=== PATIENT | female | born 1985 | race African-American/Black ===

== ENCOUNTER 2017-05-25 12:40 | Emergency (ER) | payer SELFPAY | END 2017-05-25 13:15 | disposition home or self-care (01) | LOC: ER 12:40 | DX: J20.9 Acute bronchitis, unspecified (principal); Z91.041 Radiographic dye allergy status; Z88.5 Allergy status to narcotic agent | CPT/HCPCS: 99283 ==

== ENCOUNTER 2019-07-15 11:20 | Inpatient (IN) | payer SELFPAY ==
[2019-07-15] VITALS (11 sets, daily range): BP systolic 97–139; BP diastolic 46–82
[~2019-07-15] VITALS: Ht 170.2 cm; Wt 79.6 kg
[~2019-07-15 11:20] MED LIST: ALBU2.5V8 INH; AZIT250T6 PO; BENZ100C PO; CIPR250T30 PO; DIAZ5TAB PO; DIVA500T2 PO; PRED-220 PO
[2019-07-15] MEDS ORDERED: LIDOCAINE 1% Multi-Dose 20 ML VIAL. ONE (11:49)
[2019-07-15] MEDS ORDERED: IV NORMAL SALINE 1000ML BAG 1,000 ML IV ONE (12:00)
[2019-07-15] MEDS ORDERED: CLINDAMYCIN 600MG PREMIX 50 ML IV ONE (12:00)
[2019-07-15] MEDS ORDERED: ONDANSETRON PF 4 MG/2 ML VIAL. IV ONE ×2 (12:00→12:15)
[2019-07-15] MEDS ORDERED: INSULIN REGULAR 100 UNIT/ML 3ML VIAL. IV ONE (12:00)
[2019-07-15 12:14] LABS: BILIRUBIN,URINE NEGATIVE (NEG); CLARITY,URINE CLEAR; COLOR,URINE YELLOW; NITRITE,URINE NEGATIVE (NEG); PROTEIN,URINE NEGATIVE (NEG-TRACE); UROBILINOGEN,URINE 0.2 mg/dL (0.2 mg/dL)
[2019-07-15] MEDS ORDERED: fentaNYL PF VIAL 100 MCG/2 ML VIAL IV ONE (12:15)
[2019-07-15 12:23] LABS: BASO # 0.1 x10^3/uL (0.0-0.2); BASO % 1 % (0-3); EOS % 0 % (0-3); HEMATOCRIT 40.9 % (36.0-47.0); HEMOGLOBIN 14.1 g/dL (12.0-15.5); LYMPH # 1.9 x10^3/uL (1.0-4.8); LYMPH % 20 % (24-48); MEAN CORPUSCULAR HEMOGLOBIN 31 pg (25-35); MEAN CORPUSCULAR HGB CONC 35 g/dL (31-37); MEAN CORPUSCULAR VOLUME 89 fL (79-100); MONO # 0.7 x10^3/uL (0.0-1.1); MONO % 7 % (0-9); NEUT % 73 % (31-73); PLATELET COUNT 214 x10^3/uL (140-400); RED BLOOD COUNT 4.58 x10^6/uL (3.50-5.40); RED CELL DISTRIBUTION WIDTH 12.5 % (11.5-14.5); WHITE BLOOD COUNT 9.6 x10^3/uL (4.0-11.0)
[2019-07-15 12:26] LABS: BASE EXCESS ABG -6 mmol/L (-3-3); HCO3 ABG 18 mmol/L (21-28); PCO2 ABG 31 mmHg (35-46); PO2 ABG 91 mmHg (85-108); SAT O2 ABG 96 % (92-99)
[2019-07-15 12:28] LABS: FIO2 ABG 21
[2019-07-15 12:30] LABS: BARBITURATES NEG (NEG); BENZODIAZEPINES NEG (NEG); CALCIUM 9.3 mg/dL (8.5-10.1); CANNABINOIDS NEG (NEG); COCAINE NEG (NEG); CREATININE 1.2 mg/dL (0.6-1.0); GFR 61.5; METHADONE NEG (NEG); OPIATES NEG (NEG); PHENCYCLIDINE NEG (NEG); POTASSIUM 4.1 mmol/L (3.5-5.1); SQUAMOUS EPITHELIAL CELL,UR FEW /LPF
[2019-07-15 12:32] LABS: ALBUMIN/GLOBULIN RATIO 1.3 (1.0-1.7); MAGNESIUM 1.7 mg/dL (1.8-2.4); TOTAL BILIRUBIN 0.7 mg/dL (0.2-1.0); TOTAL PROTEIN 7.2 g/dL (6.4-8.2)
[2019-07-15 12:33] LABS: BACTERIA,URINE 0 /HPF (0-FEW)
[2019-07-15 12:41] LABS: AMPHETAMINE/METHAMPHETAMINE POS (NEG)
--- NOTE | 2019-07-15 13:04 | PHYS DOC ---
Past Medical History Past Medical History: Bipolar, Bronchitis, Diabetes-Type II, Pneumonia, Other Additional Past Medical Histor: ENVIRONMENTAL ALLERGIES Past Surgical History: No Surgical History Smoking Status: Current Every Day Smoker Alcohol Use: None Drug Use: Methamphetamine General Adult EDM: Chief Complaint: WOUND CHECK HPI: HPI: Patient is a 34-year-old female that has been feeling terrible for the last several weeks. She describes polyuria and polydipsia. She states she feels like she needs to drink more than a gallon of water a day. She also states she urinates many times a day. Over the last couple of days she has been nauseated. She has not run any fever. She does state that her tongue feels like there is something on it and her taste is not been good recently. She also states that she has a half brother that is a type I diabetic that has had DKA in the past. She has never been told that she is a diabetic and never been prescribed medication to take for diabetes. Patient also states that over the last several days she has developed a very painful swollen red area under her right arm. She has had a little bit of drainage from it she is tried to squeeze it but is not been successful. [] Review of Systems: Review of Systems: Constitutional: Denies fever or chills. [] Eyes: Denies change in visual acuity. [] HENT: Denies nasal congestion or sore throat. [] Respiratory: Denies cough or shortness of breath. [] Cardiovascular: Denies chest pain or edema. [] GI: Reports nausea. [] : Denies dysuria. [] Musculoskeletal: Denies back pain or joint pain. [] Integument: Denies rash. [] Neurologic: Denies headache, focal weakness or sensory changes. [] Endocrine: Per HPI [] Lymphatic: Denies swollen glands. [] Psychiatric: Denies depression or anxiety. [] Heart Score: Risk Factors: Risk Factors: DM, Current or recent (<one month) smoker, HTN, HLP, family history of CAD, obesity. Risk Scores: Score 0 - 3: 2.5% MACE over next 6 weeks - Discharge Home Score 4 - 6: 20.3% MACE over next 6 weeks - Admit for Clinical Observation Score 7 - 10: 72.7% MACE over next 6 weeks - Early Invasive Strategies Current Medications: Current Medications Medications (Trade) Dose Ordered Sig/Esme Start Time Stop Time Status Last Admin Dose Admin Clindamycin Phosphate 50 ml @ 100 mls/hr 1X ONCE 07/15/19 12:00 07/15/19 12:29 DC 07/15/19 12:19 100 MLS/HR Fentanyl Citrate (Fentanyl 2ml Vial) 50 mcg 1X ONCE 07/15/19 12:15 07/15/19 12:16 DC 07/15/19 12:17 50 MCG Insulin Human Regular (HumuLIN R VIAL) 10 unit 1X ONCE 07/15/19 12:00 07/15/19 12:21 DC 07/15/19 12:26 10 UNIT Lidocaine HCl (Lidocaine 1% 20ml Vial) 20 ml STK-MED ONCE 07/15/19 11:49 07/15/19 11:49 DC Ondansetron HCl (Zofran) 4 mg 1X ONCE 07/15/19 12:15 07/15/19 12:16 DC Sodium Chloride 1,000 ml @ 1,000 mls/hr 1X ONCE 07/15/19 12:00 07/15/19 12:59 DC 07/15/19 12:00 1,000 MLS/HR Allergies: Allergies: Allergies Coded Allergies Type Severity Reaction Last Updated Verified iodine Allergy Intermediate Hives 05/25/17 Yes morphine Adverse Reaction Intermediate Nausea and Vomiting 05/25/17 Yes Physical Exam: PE: Constitutional: She is well-developed but appears acutely ill [] HENT: Normocephalic, atraumatic, bilateral external ears normal, oropharynx moist, no oral exudates, nose normal. [] Eyes: PERRLA, EOMI, conjunctiva normal, no discharge. [] Neck: Normal range of motion, no tenderness, supple, no stridor. [] Cardiovascular: Tachycardic no murmur [] Lungs & Thorax: Bilateral breath sounds clear to auscultation [] Abdomen: Bowel sounds normal, soft, no tenderness, no masses, no pulsatile masses. [] Skin: She has a golf ball size abscess in her right axilla [] Back: No tenderness, no CVA tenderness. [] Extremities: No tenderness, no cyanosis, no clubbing, ROM intact, no edema. [] Neurologic: Alert and oriented X 3, normal motor function, normal sensory function, no focal deficits noted. [] Psychologic: Anxious Current Patient Data: Labs: Laboratory Tests Test 07/15/19 12:00 07/15/19 12:08 07/15/19 12:25 White Blood Count 9.6 x10^3/uL (4.0-11.0) Red Blood Count 4.58 x10^6/uL (3.50-5.40) Hemoglobin 14.1 g/dL (12.0-15.5) Hematocrit 40.9 % (36.0-47.0) Mean Corpuscular Volume 89 fL (79-100) Mean Corpuscular Hemoglobin 31 pg (25-35) Mean Corpuscular Hemoglobin Concent 35 g/dL (31-37) Red Cell Distribution Width 12.5 % (11.5-14.5) Platelet Count 214 x10^3/uL (140-400) Neutrophils (%) (Auto) 73 % (31-73) Lymphocytes (%) (Auto) 20 % (24-48) L Monocytes (%) (Auto) 7 % (0-9) Eosinophils (%) (Auto) 0 % (0-3) Basophils (%) (Auto) 1 % (0-3) Neutrophils # (Auto) 7.0 x10^3/uL (1.8-7.7) Lymphocytes # (Auto) 1.9 x10^3/uL (1.0-4.8) Monocytes # (Auto) 0.7 x10^3/uL (0.0-1.1) Eosinophils # (Auto) 0.0 x10^3/uL (0.0-0.7) Basophils # (Auto) 0.1 x10^3/uL (0.0-0.2) Urine Collection Type Unknown Urine Color Yellow Urine Clarity Clear Urine pH 5.0 (<5.0-8.0) Urine Specific [place] >=1.030 (1.000-1.030) Urine Protein Negative mg/dL (NEG-TRACE) Urine Glucose (UA) >=1000 mg/dL (NEG) Urine Ketones (Stick) 40 mg/dL (NEG) Urine Blood Negative (NEG) Urine Nitrite Negative (NEG) Urine Bilirubin Negative (NEG) Urine Urobilinogen Dipstick 0.2 mg/dL (0.2 mg/dL) Urine Leukocyte Esterase Negative (NEG) Urine RBC 1-2 /HPF (0-2) Urine WBC 1-4 /HPF (0-4) Urine Squamous Epithelial Cells Few /LPF Urine Bacteria 0 /HPF (0-FEW) Sodium Level 123 mmol/L (136-145) L Potassium Level 4.1 mmol/L (3.5-5.1) Chloride Level 86 mmol/L (98-107) L Carbon Dioxide Level 22 mmol/L (21-32) Anion Gap 15 (6-14) H Blood Urea Nitrogen 12 mg/dL (7-20) Creatinine 1.2 mg/dL (0.6-1.0) H Estimated GFR (Cockcroft-Gault) 61.5 BUN/Creatinine Ratio 10 (6-20) Glucose Level 971 mg/dL (70-99) *H Calcium Level 9.3 mg/dL (8.5-10.1) Magnesium Level 1.7 mg/dL (1.8-2.4) L Total Bilirubin 0.7 mg/dL (0.2-1.0) Aspartate Amino Transferase (AST) 34 U/L (15-37) Alanine Aminotransferase (ALT) 76 U/L (14-59) H Alkaline Phosphatase 197 U/L (46-116) H Total Protein 7.2 g/dL (6.4-8.2) Albumin 4.0 g/dL (3.4-5.0) Albumin/Globulin Ratio 1.3 (1.0-1.7) Thyroid Stimulating Hormone (TSH) 3.212 uIU/mL (0.358-3.74) Urine Opiates Screen Neg (NEG) Urine Methadone Screen Neg (NEG) Urine Barbiturates Neg (NEG) Urine Phencyclidine Screen Neg (NEG) Urine Amphetamine/Methamphetamine Pos (NEG) Urine Benzodiazepines Screen Neg (NEG) Urine Cocaine Screen Neg (NEG) Urine Cannabinoids Screen Neg (NEG) Urine Ethyl Alcohol Neg (NEG) POC Urine HCG, Qualitative Hcg negative (Negative) O2 Saturation 96 % (92-99) Arterial Blood pH 7.39 (7.35-7.45) Arterial Blood pCO2 at Patient Temp 31 mmHg (35-46) L Arterial Blood pO2 at Patient Temp 91 mmHg (85-108) Arterial Blood HCO3 18 mmol/L (21-28) L Arterial Blood Base Excess -6 mmol/L (-3-3) L FiO2 21 Laboratory Tests 07/15/19 12:00 Laboratory Tests 07/15/19 12:00 Vital Signs: Vital Signs Date Time Temp Pulse Resp B/P (MAP) Pulse Ox O2 Delivery O2 Flow Rate FiO2 07/15/19 11:40 98.0 121 16 126/60 (82) 98 Room Air 98.0 EKG: EKG: [] Radiology/Procedures: Radiology/Procedures: [] Course & Med Decision Making: Course & Med Decision Making Pertinent Labs and Imaging studies reviewed. (See chart for details) [CRITICAL CARE: Time spent was 35 minutes. This includes medical management, evaluation, reevaluation, discussion with consultants and family. Critical Care does NOT include time spent on separately billed procedures. Procedure: Abscess incision and drainage The right axillary abscess was anesthetized with 8 cc of 1% lidocaine then using an 11 blade a 1.5 cm incision was made and we expressed a large amount of purulent material. The wound was probed to break up loculations. ED course: Evaluation reveals a 34-year-old female who is a new onset diabetic with an abscess in her right axilla. Her blood sugar is greater than 900. She was given IV fluids and started on an insulin drip. She was also given IV clindamycin for the infection in her right axillary area. Ordinarily I would not have given IV antibiotics however secondary to the fact that she is a new diabetic I felt it would be beneficial to the patient's recovery.] Sohail Disclaimer: Sohail Disclaimer: This electronic medical record was generated, in whole or in part, using a voice recognition dictation system. Departure Departure Impression: Primary Impression: Hyperglycemia due to type 2 diabetes mellitus Qualified Codes: E11.65 - Type 2 diabetes mellitus with hyperglycemia Additional Impression: Abscess of right axilla Disposition: ADMITTED INPATIENT Admitting Physician: JOSHUA Condition: GUARDED Referrals: NO PCP (PCP) VIEVK RAHMAN DO July 15, 2019 13:04
--- NOTE | 2019-07-15 13:07 | PDOC1 ---
History and Physical Date of Admission Date of Admission DATE: 07/15/19 TIME: 13:06 Identification/Chief Complaint Chief Complaint SEEN IN ER WITH GLUCOSE > 900 34-year-old female that has been feeling terrible describes polyuria and polydipsia. She states she feels like she needs to drink more than a gallon of water a day. C/O POLYURIA . Over the last couple of days she has been nauseated. She has not run any fever. she has a half brother that is a type I diabetic that has had DKA in the past. She has never been told that she is a diabetic and never been prescribed medication to take for diabetes. Patient also states that over the last several days she has developed a very painful swollen red area under her right arm. She has had a little bit of drainage from it she is tried to squeeze it but is not been successful. THIS WAS LANCED BY THE ER DR [] Past Medical History Past Medical History Past Medical History Past Medical History: Bipolar, Bronchitis, Diabetes-Type II, Pneumonia, Other Additional Past Medical Histor: ENVIRONMENTAL ALLERGIES Past Surgical History: No Surgical History Smoking Status: Current Every Day Smoker Alcohol Use: None Drug Use: Methamphetamine fhx DIABETES Psych: Anxiety, Addictions Musculoskeletal: low back pain Past Surgical History Past Surgical History: No pertinent history Family History Family History: Depression, Diabetes Family History: Parent Social History Smoke: <1 pack per day ALCOHOL: occassional Drugs: Crystal meth Current Medications Current Medications Current Medications Lidocaine HCl (Lidocaine 1% 20ml Vial) 20 ml STK-MED ONCE .ROUTE ; Start 07/15/19 at 11:49; Stop 07/15/19 at 11:49; Status DC Sodium Chloride 1,000 ml @ 1,000 mls/hr 1X ONCE IV Last administered on 07/15/19at 12:00; Start 07/15/19 at 12:00; Stop 07/15/19 at 12:59; Status DC Insulin Human Regular (HumuLIN R VIAL) 10 unit 1X ONCE IV Last administered on 07/15/19at 12:26; Start 07/15/19 at 12:00; Stop 07/15/19 at 12:21; Status DC Ondansetron HCl (Zofran) 4 mg 1X ONCE IV Last administered on 07/15/19at 12:17; Start 07/15/19 at 12:00; Stop 07/15/19 at 12:01; Status DC Clindamycin Phosphate 50 ml @ 100 mls/hr 1X ONCE IV Last administered on 07/15/19at 12:19; Start 07/15/19 at 12:00; Stop 07/15/19 at 12:29; Status DC Fentanyl Citrate (Fentanyl 2ml Vial) 50 mcg 1X ONCE IV Last administered on 07/15/19at 12:17; Start 07/15/19 at 12:15; Stop 07/15/19 at 12:16; Status DC Ondansetron HCl (Zofran) 4 mg 1X ONCE IV ; Start 07/15/19 at 12:15; Stop 07/15/19 at 12:16; Status DC Active Scripts Active Cipro (Ciprofloxacin Hcl) 250 Mg Tablet 250 Mg PO BID 4 Days Reported Valium (Diazepam) 5 Mg Tablet 5 Mg PO TID PRN Depakote (Divalproex Sodium) 500 Mg Tablet.dr 500 Mg PO DAILY Allergies Allergies: Coded Allergies: iodine (Verified Allergy, Intermediate, Hives, 05/25/17) morphine (Verified Adverse Reaction, Intermediate, Nausea and Vomiting, 05/25/17) ROS Review of System Constitutional: Denies fever or chills. [] Eyes: Denies change in visual acuity. [] HENT: Denies nasal congestion or sore throat. [] Respiratory: Denies cough or shortness of breath. [] Cardiovascular: Denies chest pain or edema. [] GI: Reports nausea. [] : Denies dysuria //pos polyuria . [] Musculoskeletal: Denies back pain or joint pain. [] Integument: Denies rash. [] Neurologic: Denies headache, focal weakness or sensory changes. [] Endocrine: Per HPI [] Lymphatic: RIGHT AXILLA abscess . [] Psychiatric: Denies depression or anxiety. 14 pt ros otherwise neg [] Genitourinary: YES Frequency Physical Exam Physical Exam Physical Exam: PE: Constitutional: She is well-developed but appears acutely ill [] HENT: Normocephalic, atraumatic, bilateral external ears normal, oropharynx moist, no oral exudates, nose normal. [] Eyes: PERRLA, EOMI, conjunctiva normal, no discharge. [] Neck: Normal range of motion, no tenderness, supple, no stridor. [] Cardiovascular: Tachycardic no murmur [] Lungs & Thorax: Bilateral breath sounds clear to auscultation [] Abdomen: Bowel sounds normal, soft, no tenderness, no masses, no pulsatile masses. [] Skin: She has a golf ball size abscess in her right axilla [] Back: No tenderness, no CVA tenderness. [] Extremities: No tenderness, no cyanosis, no clubbing, ROM intact, no edema. [] Neurologic: Alert and oriented X 3, normal motor function, normal sensory fun ction, no focal deficits noted. [] Psychologic: Anxious General: Alert, Oriented X3, Cooperative, mild distress HEENT: Atraumatic, PERRLA, EOMI Lungs: Clear to auscultation, Normal air movement Heart: RRR Breasts: Not examined Abdomen: Normal bowel sounds, Soft Rectal Exam: not examined PELVIC: Examination not indicated Extremities: No cyanosis, No edema Neuro: Normal speech, Cranial nerves 3-12 NL Psych/Mental Status: Mental status NL, Mood NL Vitals Vitals Vital Signs Date Time Temp Pulse Resp B/P (MAP) Pulse Ox O2 Delivery O2 Flow Rate FiO2 07/15/19 11:40 98.0 121 16 126/60 (82) 98 Room Air 98.0 Labs Labs Laboratory Tests Test 07/15/19 12:00 07/15/19 12:08 07/15/19 12:25 White Blood Count 9.6 x10^3/uL (4.0-11.0) Red Blood Count 4.58 x10^6/uL (3.50-5.40) Hemoglobin 14.1 g/dL (12.0-15.5) Hematocrit 40.9 % (36.0-47.0) Mean Corpuscular Volume 89 fL (79-100) Mean Corpuscular Hemoglobin 31 pg (25-35) Mean Corpuscular Hemoglobin Concent 35 g/dL (31-37) Red Cell Distribution Width 12.5 % (11.5-14.5) Platelet Count 214 x10^3/uL (140-400) Neutrophils (%) (Auto) 73 % (31-73) Lymphocytes (%) (Auto) 20 % (24-48) Monocytes (%) (Auto) 7 % (0-9) Eosinophils (%) (Auto) 0 % (0-3) Basophils (%) (Auto) 1 % (0-3) Neutrophils # (Auto) 7.0 x10^3/uL (1.8-7.7) Lymphocytes # (Auto) 1.9 x10^3/uL (1.0-4.8) Monocytes # (Auto) 0.7 x10^3/uL (0.0-1.1) Eosinophils # (Auto) 0.0 x10^3/uL (0.0-0.7) Basophils # (Auto) 0.1 x10^3/uL (0.0-0.2) Urine Collection Type Unknown Urine Color Yellow Urine Clarity Clear Urine pH 5.0 (<5.0-8.0) Urine Specific [place] >=1.030 (1.000-1.030) Urine Protein Negative mg/dL (NEG-TRACE) Urine Glucose (UA) >=1000 mg/dL (NEG) Urine Ketones (Stick) 40 mg/dL (NEG) Urine Blood Negative (NEG) Urine Nitrite Negative (NEG) Urine Bilirubin Negative (NEG) Urine Urobilinogen Dipstick 0.2 mg/dL (0.2 mg/dL) Urine Leukocyte Esterase Negative (NEG) Urine RBC 1-2 /HPF (0-2) Urine WBC 1-4 /HPF (0-4) Urine Squamous Epithelial Cells Few /LPF Urine Bacteria 0 /HPF (0-FEW) Sodium Level 123 mmol/L (136-145) Potassium Level 4.1 mmol/L (3.5-5.1) Chloride Level 86 mmol/L (98-107) Carbon Dioxide Level 22 mmol/L (21-32) Anion Gap 15 (6-14) Blood Urea Nitrogen 12 mg/dL (7-20) Creatinine 1.2 mg/dL (0.6-1.0) Estimated GFR (Cockcroft-Gault) 61.5 BUN/Creatinine Ratio 10 (6-20) Glucose Level 971 mg/dL (70-99) Calcium Level 9.3 mg/dL (8.5-10.1) Magnesium Level 1.7 mg/dL (1.8-2.4) Total Bilirubin 0.7 mg/dL (0.2-1.0) Aspartate Amino Transf (AST/SGOT) 34 U/L (15-37) Alanine Aminotransferase (ALT/SGPT) 76 U/L (14-59) Alkaline Phosphatase 197 U/L (46-116) Total Protein 7.2 g/dL (6.4-8.2) Albumin 4.0 g/dL (3.4-5.0) Albumin/Globulin Ratio 1.3 (1.0-1.7) Thyroid Stimulating Hormone (TSH) 3.212 uIU/mL (0.358-3.74) Urine Opiates Screen Neg (NEG) Urine Methadone Screen Neg (NEG) Urine Barbiturates Neg (NEG) Urine Phencyclidine Screen Neg (NEG) Urine Amphetamine/Methamphetamine Pos (NEG) Urine Benzodiazepines Screen Neg (NEG) Urine Cocaine Screen Neg (NEG) Urine Cannabinoids Screen Neg (NEG) Urine Ethyl Alcohol Neg (NEG) Bedside Urine HCG, Qualitative Hcg negative (Negative) O2 Saturation 96 % (92-99) Arterial Blood pH 7.39 (7.35-7.45) Arterial Blood pCO2 at Patient Temp 31 mmHg (35-46) Arterial Blood pO2 at Patient Temp 91 mmHg (85-108) Arterial Blood HCO3 18 mmol/L (21-28) Arterial Blood Base Excess -6 mmol/L (-3-3) FiO2 21 Laboratory Tests Test 07/15/19 12:00 07/15/19 12:08 07/15/19 12:25 White Blood Count 9.6 x10^3/uL (4.0-11.0) Red Blood Count 4.58 x10^6/uL (3.50-5.40) Hemoglobin 14.1 g/dL (12.0-15.5) Hematocrit 40.9 % (36.0-47.0) Mean Corpuscular Volume 89 fL (79-100) Mean Corpuscular Hemoglobin 31 pg (25-35) Mean Corpuscular Hemoglobin Concent 35 g/dL (31-37) Red Cell Distribution Width 12.5 % (11.5-14.5) Platelet Count 214 x10^3/uL (140-400) Neutrophils (%) (Auto) 73 % (31-73) Lymphocytes (%) (Auto) 20 % (24-48) Monocytes (%) (Auto) 7 % (0-9) Eosinophils (%) (Auto) 0 % (0-3) Basophils (%) (Auto) 1 % (0-3) Neutrophils # (Auto) 7.0 x10^3/uL (1.8-7.7) Lymphocytes # (Auto) 1.9 x10^3/uL (1.0-4.8) Monocytes # (Auto) 0.7 x10^3/uL (0.0-1.1) Eosinophils # (Auto) 0.0 x10^3/uL (0.0-0.7) Basophils # (Auto) 0.1 x10^3/uL (0.0-0.2) Urine Collection Type Unknown Urine Color Yellow Urine Clarity Clear Urine pH 5.0 (<5.0-8.0) Urine Specific [place] >=1.030 (1.000-1.030) Urine Protein Negative mg/dL (NEG-TRACE) Urine Glucose (UA) >=1000 mg/dL (NEG) Urine Ketones (Stick) 40 mg/dL (NEG) Urine Blood Negative (NEG) Urine Nitrite Negative (NEG) Urine Bilirubin Negative (NEG) Urine Urobilinogen Dipstick 0.2 mg/dL (0.2 mg/dL) Urine Leukocyte Esterase Negative (NEG) Urine RBC 1-2 /HPF (0-2) Urine WBC 1-4 /HPF (0-4) Urine Squamous Epithelial Cells Few /LPF Urine Bacteria 0 /HPF (0-FEW) Sodium Level 123 mmol/L (136-145) Potassium Level 4.1 mmol/L (3.5-5.1) Chloride Level 86 mmol/L (98-107) Carbon Dioxide Level 22 mmol/L (21-32) Anion Gap 15 (6-14) Blood Urea Nitrogen 12 mg/dL (7-20) Creatinine 1.2 mg/dL (0.6-1.0) Estimated GFR (Cockcroft-Gault) 61.5 BUN/Creatinine Ratio 10 (6-20) Glucose Level 971 mg/dL (70-99) Calcium Level 9.3 mg/dL (8.5-10.1) Magnesium Level 1.7 mg/dL (1.8-2.4) Total Bilirubin 0.7 mg/dL (0.2-1.0) Aspartate Amino Transf (AST/SGOT) 34 U/L (15-37) Alanine Aminotransferase (ALT/SGPT) 76 U/L (14-59) Alkaline Phosphatase 197 U/L (46-116) Total Protein 7.2 g/dL (6.4-8.2) Albumin 4.0 g/dL (3.4-5.0) Albumin/Globulin Ratio 1.3 (1.0-1.7) Thyroid Stimulating Hormone (TSH) 3.212 uIU/mL (0.358-3.74) Urine Opiates Screen Neg (NEG) Urine Methadone Screen Neg (NEG) Urine Barbiturates Neg (NEG) Urine Phencyclidine Screen Neg (NEG) Urine Amphetamine/Methamphetamine Pos (NEG) Urine Benzodiazepines Screen Neg (NEG) Urine Cocaine Screen Neg (NEG) Urine Cannabinoids Screen Neg (NEG) Urine Ethyl Alcohol Neg (NEG) Bedside Urine HCG, Qualitative Hcg negative (Negative) O2 Saturation 96 % (92-99) Arterial Blood pH 7.39 (7.35-7.45) Arterial Blood pCO2 at Patient Temp 31 mmHg (35-46) Arterial Blood pO2 at Patient Temp 91 mmHg (85-108) Arterial Blood HCO3 18 mmol/L (21-28) Arterial Blood Base Excess -6 mmol/L (-3-3) FiO2 21 VTE Prophylaxis Ordered VTE Prophylaxis Devices: Yes VTE Pharmacological Prophylaxi: Yes Assessment/Plan Assessment/Plan Impression: Hyperglycemia due to type 2 diabetes mellitus uncontrolled diabetes DKA Abscess of right axilla METH ABUSE POOR prognosis due to substance abuse ADMITTED ICU BED EMPERIC IV ANTIBIOTICS Diabetic teaching dvt prophylaxis a1c insulin drip 37 min cc time WANDA WEBSTER MD July 15, 2019 13:07
[2019-07-15] MEDS ORDERED: ONDANSETRON PF 4 MG/2 ML VIAL. IV PRN ×2 (13:15→14:00)
[2019-07-15] MEDS ORDERED: INSULIN,REGULAR 100 UNIT DRIP 100 ML IV ONE (13:15)
[2019-07-15] MEDS ORDERED: ACETAMINOPHEN 325 MG TABLET. PO PRN (13:15)
[2019-07-15] MEDS ORDERED: IV NORMAL SALINE 1000ML BAG 1,000 ML IV SCH ×3 (13:51→15:48)
[2019-07-15] MEDS ORDERED: MAGNESIUM SULFATE 4GM 100 ML IV PRN (13:57)
[2019-07-15] MEDS ORDERED: ACETAMINOPHEN 650 MG SUPP.RECT. PR PRN (14:00)
[2019-07-15] MEDS ORDERED: cloNIDine HCL 0.1 MG TABLET PO PRN (14:00)
[2019-07-15] MEDS ORDERED: diazePAM 5 MG TABLET PO PRN (14:00)
[2019-07-15] MEDS ORDERED: SODIUM PHOSPHATE 10 MMOL in IV NORMAL SALINE 100ML 250 ML IV PRN (14:00)
[2019-07-15] MEDS ORDERED: guaiFENesin ORAL 200 MG/10 ML LIQUID. PO PRN (14:00)
[2019-07-15] MEDS ORDERED: LORazepam 0.5 MG TABLET PO PRN (14:00)
[2019-07-15] MEDS ORDERED: POTASSIUM CHLORIDE 10MEQ 100 ML IV PRN ×5 (14:00→15:45)
[2019-07-15] MEDS ORDERED: INSULIN REGULAR VIAL 100 UNIT in IV NORMAL SALINE 100ML 100 ML IV PRN (14:00)
[2019-07-15] MEDS ORDERED: 0.9 % SODIUM CHLORIDE 10 ML DISP.SYRIN. IV PRN (14:00)
[2019-07-15] MEDS ORDERED: ALBUTEROL SULFATE 2.5 MG/3 ML NEBU. NEB PRN (14:00)
[2019-07-15] MEDS ORDERED: SODIUM PHOSPHATE 40 MMOL in IV NORMAL SALINE 500ML BAG 500 ML IV PRN (14:00)
[2019-07-15] MEDS ORDERED: SODIUM PHOSPHATE 20 MMOL in IV NORMAL SALINE 250ML 250 ML IV PRN (14:00)
[2019-07-15] MEDS ORDERED: DOCUSATE SODIUM 100 MG CAPSULE. PO PRN (14:00)
[2019-07-15] MEDS ORDERED: SODIUM PHOSPHATES 19/7GM 133 ML ENEMA. PR PRN (14:00)
--- NOTE | 2019-07-15 15:10 | RAD ---
AP chest x-ray HISTORY: Tachycardia. COMPARISON: Chest x-ray February 11, 2010. FINDINGS: Heart size normal. The mediastinal silhouette is normal. No pneumothorax, pulmonary opacities or pleural effusions. Bones are unremarkable. IMPRESSION: No acute process. Electronically signed by: Marquise Kamara MD (07/15/2019 3:07 PM) [facility]
[2019-07-15] MEDS: IV NORMAL SALINE 1000ML BAG 1,000 ML IV SCH ×2 (15:19→23:06)
[2019-07-15] MEDS: cefTRIAXone IV Push 2 GM VIAL. IVP SCH (15:20)
[2019-07-15] MEDS: ENOXAPARIN 40 MG/0.4 ML SYRINGE. SQ SCH (15:26)
[2019-07-15] MEDS ORDERED: IV 1/2 NORMAL SALINE 1,000 ML IV SCH (15:48)
[2019-07-15] MEDS ORDERED: IV DEXTROSE 5 %-0.45 % NACL 1,000 ML IV SCH (15:48)
--- NOTE | 2019-07-15 15:54 | EKG ---
[facility] [address] [place] [address] Test Date: 2019-07-15 Test Time: 15:43:52 Pat Name: MATHIEU COLE Department: Room: 269 1 Gender: F [employer]: : 1985 Requested By: WANDA WEBSTER Order Number: [id number] Reading MD: Hector Ch Measurements Intervals [place] Rate: 98 P: 54 [place]: 106 QRS: 41 QRSD: 92 T: 258 QT: 352 QTc: 451 Interpretive Statements SINUS RHYTHM ST & T ABNORMALITY, CONSIDER INFERIOR ISCHEMIA OR LEFT VENTRICULAR STRAIN T ABNORMALITY IN ANTERIOR LEADS ABNORMAL ECG RI6.02 No previous ECG available for comparison Electronically Signed On 07-17-2019 15:46:43 CDT by Hector Ch
[2019-07-15 17:19] LABS: CALCIUM 8.3 mg/dL (8.5-10.1); CREATININE 0.9 mg/dL (0.6-1.0); GFR 85.7; PHOSPHORUS 2.2 mg/dL (2.6-4.7)
[2019-07-15 17:22] LABS: POTASSIUM 2.8 mmol/L (3.5-5.1)
[2019-07-15] MEDS: POTASSIUM CHLORIDE 10MEQ 100 ML IV PRN ×2 (17:44→18:55)
[2019-07-15] MEDS ORDERED: DEXTROSE 50% 25 GM / 50ML DISP.SYRIN. IV PRN (18:00)
[2019-07-15] MEDS: POTASSIUM CHLORIDE 10MEQ 100 ML IV SCH ×5 (20:08→23:35)
[2019-07-16] VITALS (16 sets, daily range): BP systolic 87–129; BP diastolic 43–67
[2019-07-16] MEDS: POTASSIUM CHLORIDE 10MEQ 100 ML IV SCH (01:45)
--- NOTE | 2019-07-16 01:51 | NUR ---
Pts anion gap closed on previous shift. Previous nurse able to dc DKA protocol per MD order. Pt currently receiving bag 6/6 of potassium replacement. Follow up labs scheduled to be drawn after infusion. Pt has been resting with her eyes closed throughout most of the shift. VSS, pt a&ox4. Pt is afebrile. No concerns to report at this time. Will continue to monitor.
[2019-07-16 02:07] LABS: HEMOGLOBIN A1C 11.8 % (4.8-5.6)
[2019-07-16] MEDS: IV NORMAL SALINE 1000ML BAG 1,000 ML IV SCH ×2 (02:28→06:08)
[2019-07-16 05:30] LABS: BASO # 0.1 x10^3/uL (0.0-0.2); BASO % 1 % (0-3); EOS # 0.1 x10^3/uL (0.0-0.7); EOS % 2 % (0-3); HEMOGLOBIN 12.5 g/dL (12.0-15.5); LYMPH # 2.5 x10^3/uL (1.0-4.8); LYMPH % 37 % (24-48); MEAN CORPUSCULAR HEMOGLOBIN 31 pg (25-35); MEAN CORPUSCULAR HGB CONC 36 g/dL (31-37); MEAN CORPUSCULAR VOLUME 86 fL (79-100); MONO # 0.5 x10^3/uL (0.0-1.1); MONO % 7 % (0-9); NEUT # 3.7 x10^3/uL (1.8-7.7); NEUT % 54 % (31-73); PLATELET COUNT 194 x10^3/uL (140-400); RED BLOOD COUNT 4.07 x10^6/uL (3.50-5.40); RED CELL DISTRIBUTION WIDTH 12.6 % (11.5-14.5); WHITE BLOOD COUNT 6.9 x10^3/uL (4.0-11.0)
[2019-07-16 05:55] LABS: ALBUMIN 2.9 g/dL (3.4-5.0); CALCIUM 7.7 mg/dL (8.5-10.1); CREATININE 0.6 mg/dL (0.6-1.0); GFR 136.9; POTASSIUM 3.8 mmol/L (3.5-5.1); TOTAL BILIRUBIN 0.5 mg/dL (0.2-1.0); TOTAL PROTEIN 5.7 g/dL (6.4-8.2)
[2019-07-16] MEDS: DIVALPROEX DELAYED RELEASE 500 MG TABLET.DR. PO SCH (08:29)
[2019-07-16] MEDS: INSULIN LISPRO 300 UNITS/3 ML VIAL. SQ SCH ×5 (08:30→17:16)
--- NOTE | 2019-07-16 09:59 | PDOC2 ---
IM Consult Date of Admission DATE: 07/16/19 TIME: 09:46 Chief Complaint Chief Complaint This year 34 yo female has been admitted with a chief complaint of not feeling well for the last couple of weeks. She had complains of painful swollen red area under the right axilla for couple of days with some drainage when she tried to squeeze. It got worse. She felt it was like a " spider bite ". She was found to have hyperglycemia in the ER , hyponatremia , hypokalemia .She describes polyuria polydipsia .she describes polyuria and polydipsia. She underwent incision and drainage in the ER. Cultures are negative so far. Urine beta-hCG was negative. UDS positive for methamphetamine .patient was started on ceftriaxone .She had some nausea .she denies any fever, chills, vomiting, headache, sore throat, shortness of breath, cough, diarrhea, abdominal pain, symptoms, abnormal vaginal discharge. . She did have urinary frequency but no hematuria or dysuria . She has not run any fever. She she has not had any history of diabetes. She denies any history of skin and soft tissue infection. She denies any history of trauma. ID consult is requested for antibiotic management Past Medical History PMH Past Medical History: Bipolar, Bronchitis, Diabetes-Type II, Pneumonia, Other Additional Past Medical Histor: ENVIRONMENTAL ALLERGIES Past Surgical History: No Surgical History Smoking Status: Current Every Day Smoker Alcohol Use: None Drug Use: Methamphetamine Psych: Anxiety, Addictions Musculoskeletal: low back pain Past Surgical History Past Surgical History: No pertinent history Past Family History Family History: Depression, Diabetes Review of Symptoms Review of Symptoms Review of systems negative except for above in HPI Medications Current Medications Acetaminophen (Tylenol Supp) 650 mg PRN Q4HRS PRN [place] TEMP OVER 100.4F OR MILD PAIN; Start 07/15/19 at 14:00 Acetaminophen (Tylenol) 650 mg PRN Q4HRS PRN PO FEVER > 100.3'F Last administered on 07/15/19at 20:15; Start 07/15/19 at 13:15; Stop 07/16/19 at 13:14 Albuterol Sulfate (Ventolin Neb Soln) 2.5 mg PRN Q4HRS PRN NEB SHORTNESS OF BREATH; Start 07/15/19 at 14:00 Ceftriaxone Sodium (Rocephin) 2 gm Q24H IVP Last administered on 07/15/19at 15:20; Start 07/15/19 at 15:00 Clindamycin Phosphate 50 ml @ 100 mls/hr 1X ONCE IV Last administered on 07/15/19at 12:19; Start 07/15/19 at 12:00; Stop 07/15/19 at 12:29; Status DC Clonidine HCl (Catapres) 0.1 mg PRN Q6HRS PRN PO SBP>160 OR DBP>90; Start 07/15/19 at 14:00 Dextrose (Dextrose 50%-Water Syringe) 12.5 gm PRN Q15MIN PRN IV SEE COMMENTS; Start 07/15/19 at 18:00 Dextrose/Sodium Chloride 1,000 ml @ 250 mls/hr Q4H IV ; Start 07/15/19 at 15:48; Stop 07/15/19 at 22:37; Status DC Diazepam (Valium) 5 mg TID PRN PO ANXIETY; Start 07/15/19 at 14:00 Divalproex Sodium (Depakote) 500 mg DAILY PO Last administered on 07/16/19at 08:29; Start 07/16/19 at 09:00 Docusate Sodium (Colace) 100 mg PRN BID PRN PO HARD STOOLS; Start 07/15/19 at 14:00 Enoxaparin Sodium (Lovenox 40mg Syringe) 40 mg Q24H SQ Last administered on 07/15/19at 15:26; Start 07/15/19 at 15:00 Fentanyl Citrate (Fentanyl 2ml Vial) 50 mcg 1X ONCE IV Last administered on 07/15/19at 12:17; Start 07/15/19 at 12:15; Stop 07/15/19 at 12:16; Status DC Guaifenesin (Robitussin) 200 mg PRN Q4HRS PRN PO COUGH; Start 07/15/19 at 14:00 Insulin Human Lispro (HumaLOG) 0-7 UNITS TIDWMEALS SQ Last administered on 07/16/19at 08:30; Start 07/16/19 at 08:00 Insulin Human Regular 100 ml @ 0 mls/hr 1X ONCE IV Last administered on 07/15/19at 13:23; Start 07/15/19 at 13:15; Stop 07/15/19 at 13:16; Status DC Insulin Human Regular (HumuLIN R VIAL) 10 unit 1X ONCE IV Last administered on 07/15/19at 12:26; Start 07/15/19 at 12:00; Stop 07/15/19 at 12:21; Status DC Insulin Human Regular 100 unit/ Sodium Chloride 101 ml @ 0 mls/hr CONT PRN PRN IV PER PROTOCOL; Start 07/15/19 at 14:00 Lidocaine HCl (Lidocaine 1% 20ml Vial) 20 ml STK-MED ONCE .ROUTE ; Start 07/15/19 at 11:49; Stop 07/15/19 at 11:49; Status DC Lorazepam (Ativan) 0.5 mg PRN Q4HRS PRN PO ANXIETY / AGITATION; Start 07/15/19 at 14:00 Magnesium Sulfate 100 ml @ 25 mls/hr PRN DAILY PRN IV MAG < 1.8; Start 07/15/19 at 13:57; Stop 07/19/19 at 09:01 Ondansetron HCl (Zofran) 4 mg 1X ONCE IV Last administered on 07/15/19at 12:17; Start 07/15/19 at 12:00; Stop 07/15/19 at 12:01; Status DC Ondansetron HCl (Zofran) 4 mg 1X ONCE IV ; Start 07/15/19 at 12:15; Stop 07/15/19 at 12:16; Status DC Ondansetron HCl (Zofran) 4 mg PRN Q4HRS PRN IV NAUSEA/VOMITING; Start 07/15/19 at 14:00 Ondansetron HCl (Zofran) 4 mg PRN Q8HRS PRN IV NAUSEA/VOMITING; Start 07/15/19 at 13:15; Stop 07/15/19 at 15:55; Status DC Potassium Chloride/Water 100 ml @ 100 mls/hr PRN Q1HR PRN IV SEE COMMENTS Last administered on 07/15/19at 18:55; Start 07/15/19 at 14:00 Potassium Chloride/Water 100 ml @ 100 mls/hr PRN Q1HR PRN IV SEE COMMENTS; Start 07/15/19 at 14:00 Potassium Chloride/Water 100 ml @ 100 mls/hr PRN Q1HR PRN IV SEE COMMENTS; Start 07/15/19 at 14:00 Potassium Chloride/Water 100 ml @ 100 mls/hr PRN Q1HR PRN IV SEE COMMENTS; Start 07/15/19 at 15:45; Status UNV Potassium Chloride/Water 100 ml @ 100 mls/hr PRN Q1HR PRN IV SEE COMMENTS; Start 07/15/19 at 15:45; Status UNV Potassium Chloride/Water 100 ml @ 100 mls/hr PRN Q1HR PRN IV SEE COMMENTS; Start 07/15/19 at 15:45; Status UNV Potassium Chloride/Water 100 ml @ 100 mls/hr Q1H IV Last administered on 07/16/19at 01:45; Start 07/15/19 at 17:45; Stop 07/15/19 at 23:44; Status DC Sodium Monofluorophosphate (Fleet Adult) 133 ml PRN DAILY PRN [place] CONSTIPATION; Start 07/15/19 at 14:00 Sodium Chloride 1,000 ml @ 150 mls/hr Q6H40M IV Last administered on 07/16/19at 06:08; Start 07/15/19 at 13:08; Stop 07/16/19 at 13:07 Sodium Chloride 1,000 ml @ 250 mls/hr Q4H IV ; Start 07/15/19 at 13:54 Sodium Chloride 1,000 ml @ 250 mls/hr Q4H IV ; Start 07/15/19 at 15:48; Stop 07/15/19 at 22:37; Status DC Sodium Chloride 1,000 ml @ 250 mls/hr Q4H IV ; Start 07/15/19 at 15:48; Status UNV Sodium Chloride 1,000 ml @ 1,000 mls/hr 1X ONCE IV Last administered on 07/15/19at 12:00; Start 07/15/19 at 12:00; Stop 07/15/19 at 12:59; Status DC Sodium Chloride 1,000 ml @ 1,000 mls/hr Q1H IV ; Start 07/15/19 at 13:51; Stop 07/15/19 at 14:50; Status DC Sodium Chloride (Normal Saline Flush) 3 ml QSHIFT PRN IV AFTER MEDS AND BLOOD DRAWS; Start 07/15/19 at 14:00 Sodium Phosphate 10 mmol/Sodium Chloride 253.3333 ml @ 25 mls/hr 1X PRN PRN IV SEE COMMENTS; Start 07/15/19 at 14:00 Sodium Phosphate 20 mmol/Sodium Chloride 256.6667 ml @ 62.5 mls/hr 1X PRN PRN IV SEE COMMENTS; Start 07/15/19 at 14:00 Sodium Phosphate 40 mmol/Sodium Chloride 513.3333 ml @ 83.3 mls/hr 1X PRN PRN IV SEE COMMENTS; Start 07/15/19 at 14:00 Allergy Allergies Coded Allergies Type Severity Reaction Last Updated Verified iodine Allergy Intermediate Hives 05/25/17 Yes morphine Adverse Reaction Intermediate Nausea and Vomiting 05/25/17 Yes Physical Exam Physical Exam General appearance - alert,well appearing, and in no distress and oriented to person, place, and time Mental Status - alert, oriented to person, place, and time, affect appropriate to mood Head -normocephalic atraumatic anicteric no thrush oral mucosa moist Neck supple no JVD no thyromegaly no carotid bruit no cervical lymphadenopathy Chest - clear to auscultation, no wheezes, Heart - S1 and S2 normal Axilla right previous I&D site has small area of redness induration tenderness, no fluctuance, no purulent drainage Abdomen - soft, nontender, nondistended, no masses Neurological - alert and oriented x3, grossly nonfocal Musculoskeletal - no muscular tenderness noted Extremities - no pedal edema Skin - warm and dry Labs Laboratory Tests Test 07/15/19 12:00 07/15/19 12:08 07/15/19 12:25 07/15/19 14:14 White Blood Count 9.6 x10^3/uL (4.0-11.0) Red Blood Count 4.58 x10^6/uL (3.50-5.40) Hemoglobin 14.1 g/dL (12.0-15.5) Hematocrit 40.9 % (36.0-47.0) Mean Corpuscular Volume 89 fL (79-100) Mean Corpuscular Hemoglobin 31 pg (25-35) Mean Corpuscular Hemoglobin Concent 35 g/dL (31-37) Red Cell Distribution Width 12.5 % (11.5-14.5) Platelet Count 214 x10^3/uL (140-400) Neutrophils (%) (Auto) 73 % (31-73) Lymphocytes (%) (Auto) 20 % (24-48) Monocytes (%) (Auto) 7 % (0-9) Eosinophils (%) (Auto) 0 % (0-3) Basophils (%) (Auto) 1 % (0-3) Neutrophils # (Auto) 7.0 x10^3/uL (1.8-7.7) Lymphocytes # (Auto) 1.9 x10^3/uL (1.0-4.8) Monocytes # (Auto) 0.7 x10^3/uL (0.0-1.1) Eosinophils # (Auto) 0.0 x10^3/uL (0.0-0.7) Basophils # (Auto) 0.1 x10^3/uL (0.0-0.2) Urine Collection Type Unknown Urine Color Yellow Urine Clarity Clear Urine pH 5.0 (<5.0-8.0) Urine Specific Enterprise >=1.030 (1.000-1.030) Urine Protein Negative mg/dL (NEG-TRACE) Urine Glucose (UA) >=1000 mg/dL (NEG) Urine Ketones (Stick) 40 mg/dL (NEG) Urine Blood Negative (NEG) Urine Nitrite Negative (NEG) Urine Bilirubin Negative (NEG) Urine Urobilinogen Dipstick 0.2 mg/dL (0.2 mg/dL) Urine Leukocyte Esterase Negative (NEG) Urine RBC 1-2 /HPF (0-2) Urine WBC 1-4 /HPF (0-4) Urine Squamous Epithelial Cells Few /LPF Urine Bacteria 0 /HPF (0-FEW) Sodium Level 123 mmol/L (136-145) Potassium Level 4.1 mmol/L (3.5-5.1) Chloride Level 86 mmol/L (98-107) Carbon Dioxide Level 22 mmol/L (21-32) Anion Gap 15 (6-14) Blood Urea Nitrogen 12 mg/dL (7-20) Creatinine 1.2 mg/dL (0.6-1.0) Estimated GFR (Cockcroft-Gault) 61.5 BUN/Creatinine Ratio 10 (6-20) Glucose Level 971 mg/dL (70-99) Hemoglobin A1c 11.8 % (4.8-5.6) Calcium Level 9.3 mg/dL (8.5-10.1) Magnesium Level 1.7 mg/dL (1.8-2.4) Total Bilirubin 0.7 mg/dL (0.2-1.0) Aspartate Amino Transf (AST/SGOT) 34 U/L (15-37) Alanine Aminotransferase (ALT/SGPT) 76 U/L (14-59) Alkaline Phosphatase 197 U/L (46-116) Total Protein 7.2 g/dL (6.4-8.2) Albumin 4.0 g/dL (3.4-5.0) Albumin/Globulin Ratio 1.3 (1.0-1.7) Thyroid Stimulating Hormone (TSH) 3.212 uIU/mL (0.358-3.74) Urine Opiates Screen Neg (NEG) Urine Methadone Screen Neg (NEG) Urine Barbiturates Neg (NEG) Urine Phencyclidine Screen Neg (NEG) Urine Amphetamine/Methamphetamine Pos (NEG) Urine Benzodiazepines Screen Neg (NEG) Urine Cocaine Screen Neg (NEG) Urine Cannabinoids Screen Neg (NEG) Urine Ethyl Alcohol Neg (NEG) Bedside Urine HCG, Qualitative Hcg negative (Negative) O2 Saturation 96 % (92-99) Arterial Blood pH 7.39 (7.35-7.45) Arterial Blood pCO2 at Patient Temp 31 mmHg (35-46) Arterial Blood pO2 at Patient Temp 91 mmHg (85-108) Arterial Blood HCO3 18 mmol/L (21-28) Arterial Blood Base Excess -6 mmol/L (-3-3) FiO2 21 Glucose (Fingerstick) 363 mg/dL (70-99) Test 07/15/19 15:15 07/15/19 16:40 07/15/19 16:50 07/15/19 17:29 Glucose (Fingerstick) 310 mg/dL (70-99) 289 mg/dL (70-99) 248 mg/dL (70-99) Sodium Level 139 mmol/L (136-145) Potassium Level 2.8 mmol/L (3.5-5.1) Chloride Level 101 mmol/L (98-107) Carbon Dioxide Level 27 mmol/L (21-32) Anion Gap 11 (6-14) Blood Urea Nitrogen 9 mg/dL (7-20) Creatinine 0.9 mg/dL (0.6-1.0) Estimated GFR (Cockcroft-Gault) 85.7 Glucose Level 300 mg/dL (70-99) Calcium Level 8.3 mg/dL (8.5-10.1) Phosphorus Level 2.2 mg/dL (2.6-4.7) Magnesium Level 1.7 mg/dL (1.8-2.4) Test 07/15/19 23:12 07/16/19 04:33 07/16/19 05:00 07/16/19 08:27 Glucose (Fingerstick) 268 mg/dL (70-99) 235 mg/dL (70-99) 278 mg/dL (70-99) White Blood Count 6.9 x10^3/uL (4.0-11.0) Red Blood Count 4.07 x10^6/uL (3.50-5.40) Hemoglobin 12.5 g/dL (12.0-15.5) Hematocrit 35.0 % (36.0-47.0) Mean Corpuscular Volume 86 fL (79-100) Mean Corpuscular Hemoglobin 31 pg (25-35) Mean Corpuscular Hemoglobin Concent 36 g/dL (31-37) Red Cell Distribution Width 12.6 % (11.5-14.5) Platelet Count 194 x10^3/uL (140-400) Neutrophils (%) (Auto) 54 % (31-73) Lymphocytes (%) (Auto) 37 % (24-48) Monocytes (%) (Auto) 7 % (0-9) Eosinophils (%) (Auto) 2 % (0-3) Basophils (%) (Auto) 1 % (0-3) Neutrophils # (Auto) 3.7 x10^3/uL (1.8-7.7) Lymphocytes # (Auto) 2.5 x10^3/uL (1.0-4.8) Monocytes # (Auto) 0.5 x10^3/uL (0.0-1.1) Eosinophils # (Auto) 0.1 x10^3/uL (0.0-0.7) Basophils # (Auto) 0.1 x10^3/uL (0.0-0.2) Sodium Level 137 mmol/L (136-145) Potassium Level 3.8 mmol/L (3.5-5.1) Chloride Level 104 mmol/L (98-107) Carbon Dioxide Level 22 mmol/L (21-32) Anion Gap 11 (6-14) Blood Urea Nitrogen 5 mg/dL (7-20) Creatinine 0.6 mg/dL (0.6-1.0) Estimated GFR (Cockcroft-Gault) 136.9 BUN/Creatinine Ratio 8 (6-20) Glucose Level 322 mg/dL (70-99) Calcium Level 7.7 mg/dL (8.5-10.1) Total Bilirubin 0.5 mg/dL (0.2-1.0) Aspartate Amino Transf (AST/SGOT) 24 U/L (15-37) Alanine Aminotransferase (ALT/SGPT) 61 U/L (14-59) Alkaline Phosphatase 92 U/L (46-116) Total Protein 5.7 g/dL (6.4-8.2) Albumin 2.9 g/dL (3.4-5.0) Albumin/Globulin Ratio 1.0 (1.0-1.7) Laboratory Tests Test 07/15/19 12:00 07/15/19 12:08 07/15/19 12:25 07/15/19 14:14 White Blood Count 9.6 x10^3/uL (4.0-11.0) Red Blood Count 4.58 x10^6/uL (3.50-5.40) Hemoglobin 14.1 g/dL (12.0-15.5) Hematocrit 40.9 % (36.0-47.0) Mean Corpuscular Volume 89 fL (79-100) Mean Corpuscular Hemoglobin 31 pg (25-35) Mean Corpuscular Hemoglobin Concent 35 g/dL (31-37) Red Cell Distribution Width 12.5 % (11.5-14.5) Platelet Count 214 x10^3/uL (140-400) Neutrophils (%) (Auto) 73 % (31-73) Lymphocytes (%) (Auto) 20 % (24-48) Monocytes (%) (Auto) 7 % (0-9) Eosinophils (%) (Auto) 0 % (0-3) Basophils (%) (Auto) 1 % (0-3) Neutrophils # (Auto) 7.0 x10^3/uL (1.8-7.7) Lymphocytes # (Auto) 1.9 x10^3/uL (1.0-4.8) Monocytes # (Auto) 0.7 x10^3/uL (0.0-1.1) Eosinophils # (Auto) 0.0 x10^3/uL (0.0-0.7) Basophils # (Auto) 0.1 x10^3/uL (0.0-0.2) Urine Collection Type Unknown Urine Color Yellow Urine Clarity Clear Urine pH 5.0 (<5.0-8.0) Urine Specific Enterprise >=1.030 (1.000-1.030) Urine Protein Negative mg/dL (NEG-TRACE) Urine Glucose (UA) >=1000 mg/dL (NEG) Urine Ketones (Stick) 40 mg/dL (NEG) Urine Blood Negative (NEG) Urine Nitrite Negative (NEG) Urine Bilirubin Negative (NEG) Urine Urobilinogen Dipstick 0.2 mg/dL (0.2 mg/dL) Urine Leukocyte Esterase Negative (NEG) Urine RBC 1-2 /HPF (0-2) Urine WBC 1-4 /HPF (0-4) Urine Squamous Epithelial Cells Few /LPF Urine Bacteria 0 /HPF (0-FEW) Sodium Level 123 mmol/L (136-145) Potassium Level 4.1 mmol/L (3.5-5.1) Chloride Level 86 mmol/L (98-107) Carbon Dioxide Level 22 mmol/L (21-32) Anion Gap 15 (6-14) Blood Urea Nitrogen 12 mg/dL (7-20) Creatinine 1.2 mg/dL (0.6-1.0) Estimated GFR (Cockcroft-Gault) 61.5 BUN/Creatinine Ratio 10 (6-20) Glucose Level 971 mg/dL (70-99) Hemoglobin A1c 11.8 % (4.8-5.6) Calcium Level 9.3 mg/dL (8.5-10.1) Magnesium Level 1.7 mg/dL (1.8-2.4) Total Bilirubin 0.7 mg/dL (0.2-1.0) Aspartate Amino Transf (AST/SGOT) 34 U/L (15-37) Alanine Aminotransferase (ALT/SGPT) 76 U/L (14-59) Alkaline Phosphatase 197 U/L (46-116) Total Protein 7.2 g/dL (6.4-8.2) Albumin 4.0 g/dL (3.4-5.0) Albumin/Globulin Ratio 1.3 (1.0-1.7) Thyroid Stimulating Hormone (TSH) 3.212 uIU/mL (0.358-3.74) Urine Opiates Screen Neg (NEG) Urine Methadone Screen Neg (NEG) Urine Barbiturates Neg (NEG) Urine Phencyclidine Screen Neg (NEG) Urine Amphetamine/Methamphetamine Pos (NEG) Urine Benzodiazepines Screen Neg (NEG) Urine Cocaine Screen Neg (NEG) Urine Cannabinoids Screen Neg (NEG) Urine Ethyl Alcohol Neg (NEG) Bedside Urine HCG, Qualitative Hcg negative (Negative) O2 Saturation 96 % (92-99) Arterial Blood pH 7.39 (7.35-7.45) Arterial Blood pCO2 at Patient Temp 31 mmHg (35-46) Arterial Blood pO2 at Patient Temp 91 mmHg (85-108) Arterial Blood HCO3 18 mmol/L (21-28) Arterial Blood Base Excess -6 mmol/L (-3-3) FiO2 21 Glucose (Fingerstick) 363 mg/dL (70-99) Test 07/15/19 15:15 07/15/19 16:40 07/15/19 16:50 07/15/19 17:29 Glucose (Fingerstick) 310 mg/dL (70-99) 289 mg/dL (70-99) 248 mg/dL (70-99) Sodium Level 139 mmol/L (136-145) Potassium Level 2.8 mmol/L (3.5-5.1) Chloride Level 101 mmol/L (98-107) Carbon Dioxide Level 27 mmol/L (21-32) Anion Gap 11 (6-14) Blood Urea Nitrogen 9 mg/dL (7-20) Creatinine 0.9 mg/dL (0.6-1.0) Estimated GFR (Cockcroft-Gault) 85.7 Glucose Level 300 mg/dL (70-99) Calcium Level 8.3 mg/dL (8.5-10.1) Phosphorus Level 2.2 mg/dL (2.6-4.7) Magnesium Level 1.7 mg/dL (1.8-2.4) Test 07/15/19 23:12 07/16/19 04:33 07/16/19 05:00 07/16/19 08:27 Glucose (Fingerstick) 268 mg/dL (70-99) 235 mg/dL (70-99) 278 mg/dL (70-99) White Blood Count 6.9 x10^3/uL (4.0-11.0) Red Blood Count 4.07 x10^6/uL (3.50-5.40) Hemoglobin 12.5 g/dL (12.0-15.5) Hematocrit 35.0 % (36.0-47.0) Mean Corpuscular Volume 86 fL (79-100) Mean Corpuscular Hemoglobin 31 pg (25-35) Mean Corpuscular Hemoglobin Concent 36 g/dL (31-37) Red Cell Distribution Width 12.6 % (11.5-14.5) Platelet Count 194 x10^3/uL (140-400) Neutrophils (%) (Auto) 54 % (31-73) Lymphocytes (%) (Auto) 37 % (24-48) Monocytes (%) (Auto) 7 % (0-9) Eosinophils (%) (Auto) 2 % (0-3) Basophils (%) (Auto) 1 % (0-3) Neutrophils # (Auto) 3.7 x10^3/uL (1.8-7.7) Lymphocytes # (Auto) 2.5 x10^3/uL (1.0-4.8) Monocytes # (Auto) 0.5 x10^3/uL (0.0-1.1) Eosinophils # (Auto) 0.1 x10^3/uL (0.0-0.7) Basophils # (Auto) 0.1 x10^3/uL (0.0-0.2) Sodium Level 137 mmol/L (136-145) Potassium Level 3.8 mmol/L (3.5-5.1) Chloride Level 104 mmol/L (98-107) Carbon Dioxide Level 22 mmol/L (21-32) Anion Gap 11 (6-14) Blood Urea Nitrogen 5 mg/dL (7-20) Creatinine 0.6 mg/dL (0.6-1.0) Estimated GFR (Cockcroft-Gault) 136.9 BUN/Creatinine Ratio 8 (6-20) Glucose Level 322 mg/dL (70-99) Calcium Level 7.7 mg/dL (8.5-10.1) Total Bilirubin 0.5 mg/dL (0.2-1.0) Aspartate Amino Transf (AST/SGOT) 24 U/L (15-37) Alanine Aminotransferase (ALT/SGPT) 61 U/L (14-59) Alkaline Phosphatase 92 U/L (46-116) Total Protein 5.7 g/dL (6.4-8.2) Albumin 2.9 g/dL (3.4-5.0) Albumin/Globulin Ratio 1.0 (1.0-1.7) Vitals Vital Signs Date Time Temp Pulse Resp B/P (MAP) Pulse Ox O2 Delivery O2 Flow Rate FiO2 07/16/19 09:03 84 12 87/56 (66) 97 Room Air 07/16/19 08:21 97.9 97.9 Assessment Assessment Right axillary abscess status post I&D in ER Diabetes mellitus newly diagnosed History of substance dependence Hyponatremia, hypokalemia History of STDs gonorrhea, treated at [place] History of HIV negative tested within last 6 months per patient report at [place] Plan Plan Continue ceftriaxone Add linezolid Check urine for gonorrhea and chlamydia Quit illicit drug use Local wound care Optimal diabetes control Follow-up labs and cultures Discussed with nursing staff Thank you for allowing me to participate in this patient's care if you have any questions do not hesitate to contact me. CHELSEA HART MD July 16, 2019 09:59
[2019-07-16] MEDS: LINEZOLID 600 MG TABLET PO SCH ×2 (10:51→21:10)
--- NOTE | 2019-07-16 11:43 | PDOC ---
[employer] PROGRESS NOTE Chief Complaint Chief Complaint New onset diabetes Right axilla abscess Methamphetamine abuse History of Present Illness History of Present Illness 07/16/2019 Patient seen and examined in the ICU She was initially sleeping but awoke and is talkative Has a clean incision on the right axilla Discussed with RN Chart reviewed Vitals/I&O Vitals/I&O: Vital Signs Date Time Temp Pulse Resp B/P (MAP) Pulse Ox O2 Delivery O2 Flow Rate FiO2 07/16/19 11:00 102 16 96/51 (66) 99 Room Air 07/16/19 08:21 97.9 97.9 I & O 07/15/19 07/15/19 07/16/19 15:00 23:00 07:00 Intake Total 1000 ml 2243 ml 2979 ml Output Total 401 ml 1350 ml Balance 1000 ml 1842 ml 1629 ml Physical Exam General: Alert, Oriented X3, Cooperative, mild distress Heart: Regular rate, Normal S1 Lungs: Clear Abdomen: Normal bowel sounds, Soft Extremities: No cyanosis, No edema Skin: Other (The right axilla has a clean dry intact incision) Labs Labs: Laboratory Tests Test 07/15/19 12:00 07/15/19 12:08 07/15/19 12:25 07/15/19 14:14 White Blood Count 9.6 x10^3/uL (4.0-11.0) Red Blood Count 4.58 x10^6/uL (3.50-5.40) Hemoglobin 14.1 g/dL (12.0-15.5) Hematocrit 40.9 % (36.0-47.0) Mean Corpuscular Volume 89 fL (79-100) Mean Corpuscular Hemoglobin 31 pg (25-35) Mean Corpuscular Hemoglobin Concent 35 g/dL (31-37) Red Cell Distribution Width 12.5 % (11.5-14.5) Platelet Count 214 x10^3/uL (140-400) Neutrophils (%) (Auto) 73 % (31-73) Lymphocytes (%) (Auto) 20 % (24-48) Monocytes (%) (Auto) 7 % (0-9) Eosinophils (%) (Auto) 0 % (0-3) Basophils (%) (Auto) 1 % (0-3) Neutrophils # (Auto) 7.0 x10^3/uL (1.8-7.7) Lymphocytes # (Auto) 1.9 x10^3/uL (1.0-4.8) Monocytes # (Auto) 0.7 x10^3/uL (0.0-1.1) Eosinophils # (Auto) 0.0 x10^3/uL (0.0-0.7) Basophils # (Auto) 0.1 x10^3/uL (0.0-0.2) Urine Collection Type Unknown Urine Color Yellow Urine Clarity Clear Urine pH 5.0 (<5.0-8.0) Urine Specific [place] >=1.030 (1.000-1.030) Urine Protein Negative mg/dL (NEG-TRACE) Urine Glucose (UA) >=1000 mg/dL (NEG) Urine Ketones (Stick) 40 mg/dL (NEG) Urine Blood Negative (NEG) Urine Nitrite Negative (NEG) Urine Bilirubin Negative (NEG) Urine Urobilinogen Dipstick 0.2 mg/dL (0.2 mg/dL) Urine Leukocyte Esterase Negative (NEG) Urine RBC 1-2 /HPF (0-2) Urine WBC 1-4 /HPF (0-4) Urine Squamous Epithelial Cells Few /LPF Urine Bacteria 0 /HPF (0-FEW) Sodium Level 123 mmol/L (136-145) Potassium Level 4.1 mmol/L (3.5-5.1) Chloride Level 86 mmol/L (98-107) Carbon Dioxide Level 22 mmol/L (21-32) Anion Gap 15 (6-14) Blood Urea Nitrogen 12 mg/dL (7-20) Creatinine 1.2 mg/dL (0.6-1.0) Estimated GFR (Cockcroft-Gault) 61.5 BUN/Creatinine Ratio 10 (6-20) Glucose Level 971 mg/dL (70-99) Hemoglobin A1c 11.8 % (4.8-5.6) Calcium Level 9.3 mg/dL (8.5-10.1) Magnesium Level 1.7 mg/dL (1.8-2.4) Total Bilirubin 0.7 mg/dL (0.2-1.0) Aspartate Amino Transf (AST/SGOT) 34 U/L (15-37) Alanine Aminotransferase (ALT/SGPT) 76 U/L (14-59) Alkaline Phosphatase 197 U/L (46-116) Total Protein 7.2 g/dL (6.4-8.2) Albumin 4.0 g/dL (3.4-5.0) Albumin/Globulin Ratio 1.3 (1.0-1.7) Thyroid Stimulating Hormone (TSH) 3.212 uIU/mL (0.358-3.74) Urine Opiates Screen Neg (NEG) Urine Methadone Screen Neg (NEG) Urine Barbiturates Neg (NEG) Urine Phencyclidine Screen Neg (NEG) Urine Amphetamine/Methamphetamine Pos (NEG) Urine Benzodiazepines Screen Neg (NEG) Urine Cocaine Screen Neg (NEG) Urine Cannabinoids Screen Neg (NEG) Urine Ethyl Alcohol Neg (NEG) Bedside Urine HCG, Qualitative Hcg negative (Negative) O2 Saturation 96 % (92-99) Arterial Blood pH 7.39 (7.35-7.45) Arterial Blood pCO2 at Patient Temp 31 mmHg (35-46) Arterial Blood pO2 at Patient Temp 91 mmHg (85-108) Arterial Blood HCO3 18 mmol/L (21-28) Arterial Blood Base Excess -6 mmol/L (-3-3) FiO2 21 Glucose (Fingerstick) 363 mg/dL (70-99) Test 07/15/19 15:15 07/15/19 16:40 07/15/19 16:50 07/15/19 17:29 Glucose (Fingerstick) 310 mg/dL (70-99) 289 mg/dL (70-99) 248 mg/dL (70-99) Sodium Level 139 mmol/L (136-145) Potassium Level 2.8 mmol/L (3.5-5.1) Chloride Level 101 mmol/L (98-107) Carbon Dioxide Level 27 mmol/L (21-32) Anion Gap 11 (6-14) Blood Urea Nitrogen 9 mg/dL (7-20) Creatinine 0.9 mg/dL (0.6-1.0) Estimated GFR (Cockcroft-Gault) 85.7 Glucose Level 300 mg/dL (70-99) Calcium Level 8.3 mg/dL (8.5-10.1) Phosphorus Level 2.2 mg/dL (2.6-4.7) Magnesium Level 1.7 mg/dL (1.8-2.4) Test 07/15/19 23:12 07/16/19 04:33 07/16/19 05:00 07/16/19 08:27 Glucose (Fingerstick) 268 mg/dL (70-99) 235 mg/dL (70-99) 278 mg/dL (70-99) White Blood Count 6.9 x10^3/uL (4.0-11.0) Red Blood Count 4.07 x10^6/uL (3.50-5.40) Hemoglobin 12.5 g/dL (12.0-15.5) Hematocrit 35.0 % (36.0-47.0) Mean Corpuscular Volume 86 fL (79-100) Mean Corpuscular Hemoglobin 31 pg (25-35) Mean Corpuscular Hemoglobin Concent 36 g/dL (31-37) Red Cell Distribution Width 12.6 % (11.5-14.5) Platelet Count 194 x10^3/uL (140-400) Neutrophils (%) (Auto) 54 % (31-73) Lymphocytes (%) (Auto) 37 % (24-48) Monocytes (%) (Auto) 7 % (0-9) Eosinophils (%) (Auto) 2 % (0-3) Basophils (%) (Auto) 1 % (0-3) Neutrophils # (Auto) 3.7 x10^3/uL (1.8-7.7) Lymphocytes # (Auto) 2.5 x10^3/uL (1.0-4.8) Monocytes # (Auto) 0.5 x10^3/uL (0.0-1.1) Eosinophils # (Auto) 0.1 x10^3/uL (0.0-0.7) Basophils # (Auto) 0.1 x10^3/uL (0.0-0.2) Sodium Level 137 mmol/L (136-145) Potassium Level 3.8 mmol/L (3.5-5.1) Chloride Level 104 mmol/L (98-107) Carbon Dioxide Level 22 mmol/L (21-32) Anion Gap 11 (6-14) Blood Urea Nitrogen 5 mg/dL (7-20) Creatinine 0.6 mg/dL (0.6-1.0) Estimated GFR (Cockcroft-Gault) 136.9 BUN/Creatinine Ratio 8 (6-20) Glucose Level 322 mg/dL (70-99) Calcium Level 7.7 mg/dL (8.5-10.1) Total Bilirubin 0.5 mg/dL (0.2-1.0) Aspartate Amino Transf (AST/SGOT) 24 U/L (15-37) Alanine Aminotransferase (ALT/SGPT) 61 U/L (14-59) Alkaline Phosphatase 92 U/L (46-116) Total Protein 5.7 g/dL (6.4-8.2) Albumin 2.9 g/dL (3.4-5.0) Albumin/Globulin Ratio 1.0 (1.0-1.7) Assessment and Plan Assessmemt and Plan Problems Medical Problems: (1) Abscess of right axilla Status: Acute (2) Hyperglycemia due to type 2 diabetes mellitus Status: Acute New onset diabetes Right axilla abscess Methamphetamine abuse Plan ICU monitor Wound care Adjusting her insulin Antibiotics Home meds DVT prophylaxis Full code Comment Review of Relevant I have reviewed the following items dasha (where applicable) has been applied. Medications: Current Medications Medications (Trade) Dose Ordered Sig/Esme Route PRN Reason Start Time Stop Time Status Last Admin Dose Admin Sodium Chloride 1,000 ml @ 1,000 mls/hr 1X ONCE IV 07/15/19 12:00 07/15/19 12:59 DC 07/15/19 12:00 Insulin Human Regular (HumuLIN R VIAL) 10 unit 1X ONCE IV 07/15/19 12:00 07/15/19 12:21 DC 07/15/19 12:26 Ondansetron HCl (Zofran) 4 mg 1X ONCE IV 07/15/19 12:00 07/15/19 12:01 DC 07/15/19 12:17 Clindamycin Phosphate 50 ml @ 100 mls/hr 1X ONCE IV 07/15/19 12:00 07/15/19 12:29 DC 07/15/19 12:19 Fentanyl Citrate (Fentanyl 2ml Vial) 50 mcg 1X ONCE IV 07/15/19 12:15 07/15/19 12:16 DC 07/15/19 12:17 Insulin Human Regular 100 ml @ 0 mls/hr 1X ONCE IV 07/15/19 13:15 07/15/19 13:16 DC 07/15/19 13:23 Sodium Chloride 1,000 ml @ 150 mls/hr Q6H40M IV 07/15/19 13:08 07/16/19 13:07 07/16/19 06:08 Acetaminophen (Tylenol) 650 mg PRN Q4HRS PRN PO FEVER > 100.3'F 07/15/19 13:15 07/16/19 13:14 07/15/19 20:15 Potassium Chloride/Water 100 ml @ 100 mls/hr PRN Q1HR PRN IV SEE COMMENTS 07/15/19 14:00 07/15/19 18:55 Ceftriaxone Sodium (Rocephin) 2 gm Q24H IVP 07/15/19 15:00 07/15/19 15:20 Enoxaparin Sodium (Lovenox 40mg Syringe) 40 mg Q24H SQ 07/15/19 15:00 07/15/19 15:26 Divalproex Sodium (Depakote) 500 mg DAILY PO 07/16/19 09:00 07/16/19 08:29 Potassium Chloride/Water 100 ml @ 100 mls/hr Q1H IV 07/15/19 17:45 07/15/19 23:44 DC 07/16/19 01:45 Insulin Human Lispro (HumaLOG) 0-7 UNITS TIDWMEALS SQ 07/16/19 08:00 07/16/19 08:30 Linezolid (Zyvox) 600 mg BID PO 07/16/19 10:00 07/16/19 10:51 RUBINA BURNS III DO July 16, 2019 11:43
[2019-07-16] MEDS ORDERED: INSULIN LISPRO 300 UNITS/3 ML VIAL. SQ SCH (12:00)
--- NOTE | 2019-07-16 13:15 | NUR ---
Pt arrived via wheelchair from [facility]. Report received from CAITLIN Reynolds. Denied any needs. IVF started. Call light within reach. Will return to monitor.
--- NOTE | 2019-07-16 13:17 | NUR ---
Patient to transfer to room 400. Telephone report given to Casey Shah. POC, meds, and labs reviewed. Patient belongings with patient at time of transfer.
[2019-07-16] MEDS: ENOXAPARIN 40 MG/0.4 ML SYRINGE. SQ SCH ×2 (15:00→17:14)
[2019-07-16] MEDS: cefTRIAXone IV Push 2 GM VIAL. IVP SCH (17:14)
[2019-07-16] MEDS ORDERED: INSULIN GLARGINE SYRINGE. SQ SCH (21:00)
[2019-07-16] MEDS: LACTOBACILLUS RHAMNOSUS GG 1 CAPSULE. PO SCH (21:10)
[2019-07-16] MEDS: INSULIN GLARGINE SYRINGE. SQ SCH (21:14)
[2019-07-17 03:00] VITALS: BP 105/58
[2019-07-17 07:00] VITALS: BP 95/44
[2019-07-17] MEDS: LACTOBACILLUS RHAMNOSUS GG 1 CAPSULE. PO SCH ×2 (07:47→21:14)
[2019-07-17] MEDS: LINEZOLID 600 MG TABLET PO SCH ×2 (07:47→21:14)
[2019-07-17] MEDS: DIVALPROEX DELAYED RELEASE 500 MG TABLET.DR. PO SCH (07:48)
[2019-07-17] MEDS: INSULIN LISPRO 300 UNITS/3 ML VIAL. SQ SCH ×6 (07:52→17:57)
--- NOTE | 2019-07-17 09:33 | PDOC ---
Infectious Disease Note Subjective: Subjective Patient feels better Right arm swelling and redness and pain has been improving Denies fever, nausea, vomiting, shortness of breath, diarrhea, abdominal pain, rash Otherwise as above Vital Signs: Vital Signs Vital Signs Date Time Temp Pulse Resp B/P (MAP) Pulse Ox O2 Delivery O2 Flow Rate FiO2 07/17/19 08:00 Room Air 07/17/19 07:00 98.5 75 16 95/44 (61) 99 98.5 Physical Exam: PHYSICAL EXAM General appearance - alert,well appearing, and in no distress and oriented x3 Head -normocephalic atraumatic anicteric no thrush oral mucosa moist Neck supple no JVD no thyromegaly no carotid bruit no cervical lymphadenopathy Chest - clear to auscultation, no wheezes, Heart - S1 and S2 normal Axilla right previous I&D site has small area of redness induration tenderness, no fluctuance, no purulent drainage Abdomen - soft, nontender, nondistended, no masses Neurological - alert and oriented x3, grossly nonfocal Musculoskeletal - no muscular tenderness noted Extremities - no pedal edema Skin - warm and dry except for above Mental Status -appropriate mood Medications: Inpatient Meds: Current Medications Medications (Trade) Dose Ordered Sig/Esme Start Time Stop Time Status Last Admin Dose Admin Acetaminophen (Tylenol Supp) 650 mg PRN Q4HRS PRN 07/15/19 14:00 Acetaminophen (Tylenol) 650 mg PRN Q4HRS PRN 07/15/19 13:15 07/16/19 13:14 DC 07/15/19 20:15 650 MG Albuterol Sulfate (Ventolin Neb Soln) 2.5 mg PRN Q4HRS PRN 07/15/19 14:00 Ceftriaxone Sodium (Rocephin) 2 gm Q24H 07/15/19 15:00 07/16/19 17:14 2 GM Clindamycin Phosphate 50 ml @ 100 mls/hr 1X ONCE 07/15/19 12:00 07/15/19 12:29 DC 07/15/19 12:19 100 MLS/HR Clonidine HCl (Catapres) 0.1 mg PRN Q6HRS PRN 07/15/19 14:00 Dextrose (Dextrose 50%-Water Syringe) 12.5 gm PRN Q15MIN PRN 07/15/19 18:00 Dextrose/Sodium Chloride 1,000 ml @ 250 mls/hr Q4H 07/15/19 15:48 07/15/19 22:37 DC Diazepam (Valium) 5 mg TID PRN 07/15/19 14:00 Divalproex Sodium (Depakote) 500 mg DAILY 07/16/19 09:00 07/17/19 07:48 500 MG Docusate Sodium (Colace) 100 mg PRN BID PRN 07/15/19 14:00 Enoxaparin Sodium (Lovenox 40mg Syringe) 40 mg Q24H 07/15/19 15:00 07/15/19 15:26 40 MG Fentanyl Citrate (Fentanyl 2ml Vial) 50 mcg 1X ONCE 07/15/19 12:15 07/15/19 12:16 DC 07/15/19 12:17 50 MCG Guaifenesin (Robitussin) 200 mg PRN Q4HRS PRN 07/15/19 14:00 Insulin Glargine (Lantus Syringe) 20 unit QHS 07/16/19 21:00 07/16/19 21:14 20 UNIT Insulin Human Lispro (HumaLOG) 10 units TIDWMEALS 07/16/19 12:00 07/17/19 07:52 10 UNITS Insulin Human Regular 100 ml @ 0 mls/hr 1X ONCE 07/15/19 13:15 07/15/19 13:16 DC 07/15/19 13:23 18.2 MLS/HR Insulin Human Regular (HumuLIN R VIAL) 10 unit 1X ONCE 07/15/19 12:00 07/15/19 12:21 DC 07/15/19 12:26 10 UNIT Insulin Human Regular 100 unit/ Sodium Chloride 101 ml @ 0 mls/hr CONT PRN PRN 07/15/19 14:00 Lactobacillus Rhamnosus (Culturelle) 1 cap BID 07/16/19 21:00 07/17/19 07:47 1 CAP Lidocaine HCl (Lidocaine 1% 20ml Vial) 20 ml STK-MED ONCE 07/15/19 11:49 07/15/19 11:49 DC Linezolid (Zyvox) 600 mg BID 07/16/19 10:00 07/17/19 07:47 600 MG Lorazepam (Ativan) 0.5 mg PRN Q4HRS PRN 07/15/19 14:00 Magnesium Sulfate 100 ml @ 25 mls/hr PRN DAILY PRN 07/15/19 13:57 07/19/19 09:01 07/16/19 14:01 25 MLS/HR Ondansetron HCl (Zofran) 4 mg PRN Q4HRS PRN 07/15/19 14:00 Potassium Chloride/Water 100 ml @ 100 mls/hr Q1H 07/15/19 17:45 07/15/19 23:44 DC 07/16/19 01:45 100 MLS/HR Sodium Monofluorophosphate (Fleet Adult) 133 ml PRN DAILY PRN 07/15/19 14:00 Sodium Chloride 1,000 ml @ 250 mls/hr Q4H 07/15/19 15:48 07/15/19 22:37 DC Sodium Chloride (Normal Saline Flush) 3 ml QSHIFT PRN 07/15/19 14:00 Sodium Phosphate 10 mmol/Sodium Chloride 253.3333 ml @ 25 mls/hr 1X PRN PRN 07/15/19 14:00 Sodium Phosphate 20 mmol/Sodium Chloride 256.6667 ml @ 62.5 mls/hr 1X PRN PRN 07/15/19 14:00 Sodium Phosphate 40 mmol/Sodium Chloride 513.3333 ml @ 83.3 mls/hr 1X PRN PRN 07/15/19 14:00 Labs: Lab Laboratory Tests Test 07/16/19 11:49 07/16/19 16:17 07/16/19 20:59 07/17/19 06:58 Glucose (Fingerstick) 307 mg/dL (70-99) 276 mg/dL (70-99) 372 mg/dL (70-99) 230 mg/dL (70-99) Objective: Assessment: Right axillary abscess status post I&D in ER, no cultures available Diabetes mellitus newly diagnosed History of substance dependence Hyponatremia, hypokalemia History of STDs gonorrhea, treated at [facility] History of HIV negative tested within last 6 months per patient report at [facility] Urine beta-hCG Plan: Plan of Care Continue ceftriaxone/ linezolid f/u urine for gonorrhea and chlamydia Azithromycin one-time dose Quit illicit drug use Local wound care Optimal diabetes control Follow-up labs and cultures Discussed with nursing staff CHELSEA HART MD July 17, 2019 09:33
--- NOTE | 2019-07-17 10:27 | PDOC ---
PROGRESS NOTES Chief Complaint Chief Complaint impression New onset diabetes Right axilla abscess Methamphetamine abuse History of Present Illness History of Present Illness 07/17/2019 Patient seen and examined She is talkative Has a clean incision on the right axilla Discussed with RN Chart reviewed Vitals Vitals Vital Signs Date Time Temp Pulse Resp B/P (MAP) Pulse Ox O2 Delivery O2 Flow Rate FiO2 07/17/19 08:00 Room Air 07/17/19 07:00 98.5 75 16 95/44 (61) 99 98.5 Physical Exam Physical Exam General appearance - alert,well appearing, and in no distress and oriented x3 Head -normocephalic atraumatic anicteric no thrush oral mucosa moist Neck supple no JVD no thyromegaly no carotid bruit no cervical lymphadenopathy Chest - clear to auscultation, no wheezes, Heart - S1 and S2 normal Axilla right previous I&D site has small area of redness induration tenderness, no fluctuance, no purulent drainage Abdomen - soft, nontender, nondistended, no masses Neurological - alert and oriented x3, grossly nonfocal Musculoskeletal - no muscular tenderness noted Extremities - no pedal edema Skin - warm and dry except for above Mental Status -appropriate mood General: Alert, Oriented X3, Cooperative, No acute distress Heart: Regular rate, Normal S1, No murmurs Lungs: Clear Abdomen: Normal bowel sounds, Soft Extremities: No cyanosis, No edema Skin: Other (The right axilla has a clean dry intact incision) Labs LABS AP chest x-ray HISTORY: Tachycardia. COMPARISON: Chest x-ray February 11, 2010. FINDINGS: Heart size normal. The mediastinal silhouette is normal. No pneumothorax, pulmonary opacities or pleural effusions. Bones are unremarkable. IMPRESSION: No acute process. Electronically signed by: Unique Kamara MD (07/15/2019 3:07 PM) [facility] [place] DICTATED and SIGNED BY: UNIQUE KAMARA MD DATE: 07/15/19 1507 AGE/SX: 34/F ROOM: 400 RE07/15/[address]: WANDA WEBSTER MD : 1985 BED: 1 DIS: STATUS: ADM IN TLOC: SPEC #: [id number] WILLIAM: 07/15/19 STATUS: RES REQ #: [id number] RECD: 07/15/19-[address] [facility] [address]: WANDA WEBSTER MD SOURCE: BLOOD ENTR: 07/15/19-1354 [facility] DR: DULCE HOLLINS SPDESC: ORDERED: BCULT Procedure Result BLOOD CULTURE Preliminary NO GROWTH AFTER 1 DAY Laboratory Tests Test 07/16/19 11:49 07/16/19 16:17 07/16/19 20:59 07/17/19 06:58 Glucose (Fingerstick) 307 mg/dL (70-99) 276 mg/dL (70-99) 372 mg/dL (70-99) 230 mg/dL (70-99) Assessment and Plan Assessmemt and Plan Problems Medical Problems: (1) Abscess of right axilla Status: Acute (2) Hyperglycemia due to type 2 diabetes mellitus Status: Acute Comment Review of Relevant I have reviewed the following items dasha (where applicable) has been applied. Labs Laboratory Tests Test 07/15/19 12:00 07/15/19 12:08 07/15/19 12:25 07/15/19 14:14 White Blood Count 9.6 x10^3/uL (4.0-11.0) Red Blood Count 4.58 x10^6/uL (3.50-5.40) Hemoglobin 14.1 g/dL (12.0-15.5) Hematocrit 40.9 % (36.0-47.0) Mean Corpuscular Volume 89 fL (79-100) Mean Corpuscular Hemoglobin 31 pg (25-35) Mean Corpuscular Hemoglobin Concent 35 g/dL (31-37) Red Cell Distribution Width 12.5 % (11.5-14.5) Platelet Count 214 x10^3/uL (140-400) Neutrophils (%) (Auto) 73 % (31-73) Lymphocytes (%) (Auto) 20 % (24-48) Monocytes (%) (Auto) 7 % (0-9) Eosinophils (%) (Auto) 0 % (0-3) Basophils (%) (Auto) 1 % (0-3) Neutrophils # (Auto) 7.0 x10^3/uL (1.8-7.7) Lymphocytes # (Auto) 1.9 x10^3/uL (1.0-4.8) Monocytes # (Auto) 0.7 x10^3/uL (0.0-1.1) Eosinophils # (Auto) 0.0 x10^3/uL (0.0-0.7) Basophils # (Auto) 0.1 x10^3/uL (0.0-0.2) Urine Collection Type Unknown Urine Color Yellow Urine Clarity Clear Urine pH 5.0 (<5.0-8.0) Urine Specific [place] >=1.030 (1.000-1.030) Urine Protein Negative mg/dL (NEG-TRACE) Urine Glucose (UA) >=1000 mg/dL (NEG) Urine Ketones (Stick) 40 mg/dL (NEG) Urine Blood Negative (NEG) Urine Nitrite Negative (NEG) Urine Bilirubin Negative (NEG) Urine Urobilinogen Dipstick 0.2 mg/dL (0.2 mg/dL) Urine Leukocyte Esterase Negative (NEG) Urine RBC 1-2 /HPF (0-2) Urine WBC 1-4 /HPF (0-4) Urine Squamous Epithelial Cells Few /LPF Urine Bacteria 0 /HPF (0-FEW) Sodium Level 123 mmol/L (136-145) Potassium Level 4.1 mmol/L (3.5-5.1) Chloride Level 86 mmol/L (98-107) Carbon Dioxide Level 22 mmol/L (21-32) Anion Gap 15 (6-14) Blood Urea Nitrogen 12 mg/dL (7-20) Creatinine 1.2 mg/dL (0.6-1.0) Estimated GFR (Cockcroft-Gault) 61.5 BUN/Creatinine Ratio 10 (6-20) Glucose Level 971 mg/dL (70-99) Hemoglobin A1c 11.8 % (4.8-5.6) Calcium Level 9.3 mg/dL (8.5-10.1) Magnesium Level 1.7 mg/dL (1.8-2.4) Total Bilirubin 0.7 mg/dL (0.2-1.0) Aspartate Amino Transf (AST/SGOT) 34 U/L (15-37) Alanine Aminotransferase (ALT/SGPT) 76 U/L (14-59) Alkaline Phosphatase 197 U/L (46-116) Total Protein 7.2 g/dL (6.4-8.2) Albumin 4.0 g/dL (3.4-5.0) Albumin/Globulin Ratio 1.3 (1.0-1.7) Thyroid Stimulating Hormone (TSH) 3.212 uIU/mL (0.358-3.74) Urine Opiates Screen Neg (NEG) Urine Methadone Screen Neg (NEG) Urine Barbiturates Neg (NEG) Urine Phencyclidine Screen Neg (NEG) Urine Amphetamine/Methamphetamine Pos (NEG) Urine Benzodiazepines Screen Neg (NEG) Urine Cocaine Screen Neg (NEG) Urine Cannabinoids Screen Neg (NEG) Urine Ethyl Alcohol Neg (NEG) Bedside Urine HCG, Qualitative Hcg negative (Negative) O2 Saturation 96 % (92-99) Arterial Blood pH 7.39 (7.35-7.45) Arterial Blood pCO2 at Patient Temp 31 mmHg (35-46) Arterial Blood pO2 at Patient Temp 91 mmHg (85-108) Arterial Blood HCO3 18 mmol/L (21-28) Arterial Blood Base Excess -6 mmol/L (-3-3) FiO2 21 Glucose (Fingerstick) 363 mg/dL (70-99) Test 07/15/19 15:15 07/15/19 16:40 07/15/19 16:50 07/15/19 17:29 Glucose (Fingerstick) 310 mg/dL (70-99) 289 mg/dL (70-99) 248 mg/dL (70-99) Sodium Level 139 mmol/L (136-145) Potassium Level 2.8 mmol/L (3.5-5.1) Chloride Level 101 mmol/L (98-107) Carbon Dioxide Level 27 mmol/L (21-32) Anion Gap 11 (6-14) Blood Urea Nitrogen 9 mg/dL (7-20) Creatinine 0.9 mg/dL (0.6-1.0) Estimated GFR (Cockcroft-Gault) 85.7 Glucose Level 300 mg/dL (70-99) Calcium Level 8.3 mg/dL (8.5-10.1) Phosphorus Level 2.2 mg/dL (2.6-4.7) Magnesium Level 1.7 mg/dL (1.8-2.4) Test 07/15/19 23:12 07/16/19 04:33 07/16/19 05:00 07/16/19 08:27 Glucose (Fingerstick) 268 mg/dL (70-99) 235 mg/dL (70-99) 278 mg/dL (70-99) White Blood Count 6.9 x10^3/uL (4.0-11.0) Red Blood Count 4.07 x10^6/uL (3.50-5.40) Hemoglobin 12.5 g/dL (12.0-15.5) Hematocrit 35.0 % (36.0-47.0) Mean Corpuscular Volume 86 fL (79-100) Mean Corpuscular Hemoglobin 31 pg (25-35) Mean Corpuscular Hemoglobin Concent 36 g/dL (31-37) Red Cell Distribution Width 12.6 % (11.5-14.5) Platelet Count 194 x10^3/uL (140-400) Neutrophils (%) (Auto) 54 % (31-73) Lymphocytes (%) (Auto) 37 % (24-48) Monocytes (%) (Auto) 7 % (0-9) Eosinophils (%) (Auto) 2 % (0-3) Basophils (%) (Auto) 1 % (0-3) Neutrophils # (Auto) 3.7 x10^3/uL (1.8-7.7) Lymphocytes # (Auto) 2.5 x10^3/uL (1.0-4.8) Monocytes # (Auto) 0.5 x10^3/uL (0.0-1.1) Eosinophils # (Auto) 0.1 x10^3/uL (0.0-0.7) Basophils # (Auto) 0.1 x10^3/uL (0.0-0.2) Sodium Level 137 mmol/L (136-145) Potassium Level 3.8 mmol/L (3.5-5.1) Chloride Level 104 mmol/L (98-107) Carbon Dioxide Level 22 mmol/L (21-32) Anion Gap 11 (6-14) Blood Urea Nitrogen 5 mg/dL (7-20) Creatinine 0.6 mg/dL (0.6-1.0) Estimated GFR (Cockcroft-Gault) 136.9 BUN/Creatinine Ratio 8 (6-20) Glucose Level 322 mg/dL (70-99) Calcium Level 7.7 mg/dL (8.5-10.1) Magnesium Level 1.6 mg/dL (1.8-2.4) Total Bilirubin 0.5 mg/dL (0.2-1.0) Aspartate Amino Transf (AST/SGOT) 24 U/L (15-37) Alanine Aminotransferase (ALT/SGPT) 61 U/L (14-59) Alkaline Phosphatase 92 U/L (46-116) Total Protein 5.7 g/dL (6.4-8.2) Albumin 2.9 g/dL (3.4-5.0) Albumin/Globulin Ratio 1.0 (1.0-1.7) Test 07/16/19 11:49 07/16/19 16:17 07/16/19 20:59 07/17/19 06:58 Glucose (Fingerstick) 307 mg/dL (70-99) 276 mg/dL (70-99) 372 mg/dL (70-99) 230 mg/dL (70-99) Laboratory Tests Test 07/16/19 11:49 07/16/19 16:17 07/16/19 20:59 07/17/19 06:58 Glucose (Fingerstick) 307 mg/dL (70-99) 276 mg/dL (70-99) 372 mg/dL (70-99) 230 mg/dL (70-99) Microbiology 07/15/19 Blood Culture - Preliminary, Resulted NO GROWTH AFTER 1 DAY Medications Current Medications Lidocaine HCl (Lidocaine 1% 20ml Vial) 20 ml STK-MED ONCE .ROUTE ; Start 07/15/19 at 11:49; Stop 07/15/19 at 11:49; Status DC Sodium Chloride 1,000 ml @ 1,000 mls/hr 1X ONCE IV Last administered on 07/15/19at 12:00; Start 07/15/19 at 12:00; Stop 07/15/19 at 12:59; Status DC Insulin Human Regular (HumuLIN R VIAL) 10 unit 1X ONCE IV Last administered on 07/15/19at 12:26; Start 07/15/19 at 12:00; Stop 07/15/19 at 12:21; Status DC Ondansetron HCl (Zofran) 4 mg 1X ONCE IV Last administered on 07/15/19at 12:17; Start 07/15/19 at 12:00; Stop 07/15/19 at 12:01; Status DC Clindamycin Phosphate 50 ml @ 100 mls/hr 1X ONCE IV Last administered on 07/15/19at 12:19; Start 07/15/19 at 12:00; Stop 07/15/19 at 12:29; Status DC Fentanyl Citrate (Fentanyl 2ml Vial) 50 mcg 1X ONCE IV Last administered on 07/15/19at 12:17; Start 07/15/19 at 12:15; Stop 07/15/19 at 12:16; Status DC Ondansetron HCl (Zofran) 4 mg 1X ONCE IV ; Start 07/15/19 at 12:15; Stop 07/15/19 at 12:16; Status DC Insulin Human Regular 100 ml @ 0 mls/hr 1X ONCE IV Last administered on 07/15/19at 13:23; Start 07/15/19 at 13:15; Stop 07/15/19 at 13:16; Status DC Ondansetron HCl (Zofran) 4 mg PRN Q8HRS PRN IV NAUSEA/VOMITING; Start 07/15/19 at 13:15; Stop 07/15/19 at 15:55; Status DC Sodium Chloride 1,000 ml @ 150 mls/hr Q6H40M IV Last administered on 07/16/19at 06:08; Start 07/15/19 at 13:08; Stop 07/16/19 at 13:07; Status DC Acetaminophen (Tylenol) 650 mg PRN Q4HRS PRN PO FEVER > 100.3'F Last administered on 07/15/19at 20:15; Start 07/15/19 at 13:15; Stop 07/16/19 at 13:14; Status DC Sodium Chloride 1,000 ml @ 1,000 mls/hr Q1H IV ; Start 07/15/19 at 13:51; Stop 07/15/19 at 14:50; Status DC Sodium Chloride 1,000 ml @ 250 mls/hr Q4H IV ; Start 07/15/19 at 13:54; Stop 07/16/19 at 11:41; Status DC Insulin Human Regular 100 unit/ Sodium Chloride 101 ml @ 0 mls/hr CONT PRN PRN IV PER PROTOCOL; Start 07/15/19 at 14:00 Potassium Chloride/Water 100 ml @ 100 mls/hr PRN Q1HR PRN IV SEE COMMENTS Last administered on 07/15/19at 18:55; Start 07/15/19 at 14:00 Potassium Chloride/Water 100 ml @ 100 mls/hr PRN Q1HR PRN IV SEE COMMENTS; Start 07/15/19 at 14:00 Potassium Chloride/Water 100 ml @ 100 mls/hr PRN Q1HR PRN IV SEE COMMENTS; Start 07/15/19 at 14:00 Magnesium Sulfate 100 ml @ 25 mls/hr PRN DAILY PRN IV MAG < 1.8 Last administered on 07/16/19at 14:01; Start 07/15/19 at 13:57; Stop 07/19/19 at 09:01 Sodium Phosphate 40 mmol/Sodium Chloride 513.3333 ml @ 83.3 mls/hr 1X PRN PRN IV SEE COMMENTS; Start 07/15/19 at 14:00 Sodium Phosphate 20 mmol/Sodium Chloride 256.6667 ml @ 62.5 mls/hr 1X PRN PRN IV SEE COMMENTS; Start 07/15/19 at 14:00 Sodium Phosphate 10 mmol/Sodium Chloride 253.3333 ml @ 25 mls/hr 1X PRN PRN IV SEE COMMENTS; Start 07/15/19 at 14:00 Ceftriaxone Sodium (Rocephin) 2 gm Q24H IVP Last administered on 07/16/19at 17:14; Start 07/15/19 at 15:00 Sodium Chloride (Normal Saline Flush) 3 ml QSHIFT PRN IV AFTER MEDS AND BLOOD DRAWS; Start 07/15/19 at 14:00 Ondansetron HCl (Zofran) 4 mg PRN Q4HRS PRN IV NAUSEA/VOMITING; Start 07/15/19 at 14:00 Acetaminophen (Tylenol Supp) 650 mg PRN Q4HRS PRN TX TEMP OVER 100.4F OR MILD PAIN; Start 07/15/19 at 14:00 Clonidine HCl (Catapres) 0.1 mg PRN Q6HRS PRN PO SBP>160 OR DBP>90; Start 07/15/19 at 14:00 Sodium Monofluorophosphate (Fleet Adult) 133 ml PRN DAILY PRN TX CONSTIPATION; Start 07/15/19 at 14:00 Docusate Sodium (Colace) 100 mg PRN BID PRN PO HARD STOOLS; Start 07/15/19 at 14:00 Albuterol Sulfate (Ventolin Neb Soln) 2.5 mg PRN Q4HRS PRN NEB SHORTNESS OF BREATH; Start 07/15/19 at 14:00 Guaifenesin (Robitussin) 200 mg PRN Q4HRS PRN PO COUGH; Start 07/15/19 at 14:00 Lorazepam (Ativan) 0.5 mg PRN Q4HRS PRN PO ANXIETY / AGITATION; Start 07/15/19 at 14:00 Enoxaparin Sodium (Lovenox 40mg Syringe) 40 mg Q24H SQ Last administered on 07/15/19at 15:26; Start 07/15/19 at 15:00 Diazepam (Valium) 5 mg TID PRN PO ANXIETY; Start 07/15/19 at 14:00 Divalproex Sodium (Depakote) 500 mg DAILY PO Last administered on 07/17/19at 07:48; Start 07/16/19 at 09:00 Sodium Chloride 1,000 ml @ 250 mls/hr Q4H IV ; Start 07/15/19 at 15:48; Status UNV Sodium Chloride 1,000 ml @ 250 mls/hr Q4H IV ; Start 07/15/19 at 15:48; Stop 07/15/19 at 22:37; Status DC Dextrose/Sodium Chloride 1,000 ml @ 250 mls/hr Q4H IV ; Start 07/15/19 at 15:48; Stop 07/15/19 at 22:37; Status DC Potassium Chloride/Water 100 ml @ 100 mls/hr PRN Q1HR PRN IV SEE COMMENTS; Start 07/15/19 at 15:45; Status UNV Potassium Chloride/Water 100 ml @ 100 mls/hr PRN Q1HR PRN IV SEE COMMENTS; Start 07/15/19 at 15:45; Status UNV Potassium Chloride/Water 100 ml @ 100 mls/hr PRN Q1HR PRN IV SEE COMMENTS; Start 07/15/19 at 15:45; Status UNV Potassium Chloride/Water 100 ml @ 100 mls/hr Q1H IV Last administered on 07/16/19at 01:45; Start 07/15/19 at 17:45; Stop 07/15/19 at 23:44; Status DC Insulin Human Lispro (HumaLOG) 0-7 UNITS TIDWMEALS SQ Last administered on 07/17/19at 07:53; Start 07/16/19 at 08:00 Dextrose (Dextrose 50%-Water Syringe) 12.5 gm PRN Q15MIN PRN IV SEE COMMENTS; Start 07/15/19 at 18:00 Linezolid (Zyvox) 600 mg BID PO Last administered on 07/17/19at 07:47; Start 07/16/19 at 10:00 Insulin Human Lispro (HumaLOG) 10 units TIDWMEALS SQ ; Start 07/16/19 at 12:00; Status UNV Insulin Glargine (Lantus Syringe) 20 unit QHS SQ ; Start 07/16/19 at 21:00; Status UNV Insulin Human Lispro (HumaLOG) 10 units TIDWMEALS SQ Last administered on 07/17/19at 07:52; Start 07/16/19 at 12:00 Insulin Glargine (Lantus Syringe) 20 unit QHS SQ Last administered on 07/16/19at 21:14; Start 07/16/19 at 21:00 Lactobacillus Rhamnosus (Culturelle) 1 cap BID PO Last administered on 07/17/19at 07:47; Start 07/16/19 at 21:00 Active Scripts Active Cipro (Ciprofloxacin Hcl) 250 Mg Tablet 250 Mg PO BID 4 Days Reported Valium (Diazepam) 5 Mg Tablet 5 Mg PO TID PRN Depakote (Divalproex Sodium) 500 Mg Tablet.dr 500 Mg PO DAILY Vitals/I & O Vital Sign - Last 24 Hours 07/16/19 07/16/19 07/16/19 07/16/19 11:00 12:00 14:00 19:00 Temp 98.1 97.9 98.5 98.1 97.9 98.5 Pulse 102 86 93 87 Resp 16 16 16 18 B/P (MAP) 96/51 (66) 110/57 (74) 106/57 (73) 111/66 (81) Pulse Ox 99 98 98 97 O2 Delivery Room Air Room Air Room Air 07/16/19 07/16/19 07/17/19 07/17/19 20:00 23:00 03:00 07:00 Temp 98.4 98.3 98.5 98.4 98.3 98.5 Pulse 81 72 75 Resp 16 16 16 B/P (MAP) 102/66 (78) 105/58 (74) 95/44 (61) Pulse Ox 99 100 99 O2 Delivery Room Air Room Air 07/17/19 08:00 O2 Delivery Room Air Intake and Output 07/16/19 07/16/19 07/17/19 15:00 23:00 07:00 Intake Total 1080 ml 440 ml Output Total 1200 ml Balance -120 ml 440 ml WANDA WEBSTER MD July 17, 2019 10:27
[2019-07-17 10:58] VITALS: BP 101/54
[2019-07-17] MEDS ORDERED: FLUCONAZOLE 100 MG TABLET. PO ONE (13:00)
--- NOTE | 2019-07-17 14:08 | NUR ---
Wound Care Wound Type/Assessment: abscess to right axilla.Wound is red hypergranulated with scant creamy drainage Treatment Recommendations/Plan: Covered with aquacel ag and telfa, change every 2-3 days Education provided: Wound care POC and PU prevention, Pt verbalized understanding. Pt is self turn Offloading surface/device: na Recommended Referrals/Tests: none Discharge Recommendations for dressings: same as above
[2019-07-17 14:55] VITALS: BP 106/52
[2019-07-17] MEDS: ENOXAPARIN 40 MG/0.4 ML SYRINGE. SQ SCH (15:00)
--- NOTE | 2019-07-17 15:23 | NUR ---
SS following for discharge planning. SS reviewed pt chart and discussed with pt RN. Pt is from home and is currently on room air. Pt is self pay pt and currently on IV antibiotic. Pt needing resources for diabetic medications. SS will continue to follow for discharge planning.
[2019-07-17] MEDS: cefTRIAXone IV Push 2 GM VIAL. IVP SCH (15:55)
[2019-07-17 19:00] VITALS: BP 106/61
[2019-07-17] MEDS: INSULIN GLARGINE SYRINGE. SQ SCH (21:20)
[2019-07-17 22:50] VITALS: BP 104/55
[2019-07-18 02:45] LABS: BASO # 0.1 x10^3/uL (0.0-0.2); BASO % 1 % (0-3); EOS % 1 % (0-3); HEMATOCRIT 36.5 % (36.0-47.0); HEMOGLOBIN 13.1 g/dL (12.0-15.5); LYMPH % 36 % (24-48); MEAN CORPUSCULAR HEMOGLOBIN 31 pg (25-35); MEAN CORPUSCULAR HGB CONC 36 g/dL (31-37); MEAN CORPUSCULAR VOLUME 86 fL (79-100); MONO # 0.4 x10^3/uL (0.0-1.1); MONO % 6 % (0-9); NEUT # 3.1 x10^3/uL (1.8-7.7); NEUT % 56 % (31-73); PLATELET COUNT 212 x10^3/uL (140-400); RED BLOOD COUNT 4.25 x10^6/uL (3.50-5.40); RED CELL DISTRIBUTION WIDTH 12.8 % (11.5-14.5); WHITE BLOOD COUNT 5.6 x10^3/uL (4.0-11.0)
[2019-07-18 02:50] VITALS: BP 93/49
[2019-07-18 03:16] LABS: CALCIUM 8.3 mg/dL (8.5-10.1); CREATININE 0.6 mg/dL (0.6-1.0); GFR 136.9; POTASSIUM 3.9 mmol/L (3.5-5.1)
[2019-07-18 07:15] VITALS: BP 94/42
[2019-07-18] MEDS: LINEZOLID 600 MG TABLET PO SCH (08:20)
[2019-07-18] MEDS: LACTOBACILLUS RHAMNOSUS GG 1 CAPSULE. PO SCH (08:20)
[2019-07-18] MEDS: DIVALPROEX DELAYED RELEASE 500 MG TABLET.DR. PO SCH (08:20)
[2019-07-18] MEDS: INSULIN LISPRO 300 UNITS/3 ML VIAL. SQ SCH ×6 (08:26→17:23)
--- NOTE | 2019-07-18 10:17 | PDOC ---
PROGRESS NOTES Chief Complaint Chief Complaint DISCHARGE DX New onset diabetes Right axilla abscess Methamphetamine abuse History of STDs gonorrhea, treated at [facility] PL[facility] ======= PO linezolid 600MG X 7 DAYS f/u urine for gonorrhea and chlamydia NEG D/C HOME D/C PLANNING 34 MIN History of Present Illness History of Present Illness 07/18/2019 Patient seen and examined She is talkative, alert clean incision on the right axilla Discussed with RN Chart reviewed Continue ceftriaxone/ linezolid f/u urine for gonorrhea and chlamydia Vitals Vitals Vital Signs Date Time Temp Pulse Resp B/P (MAP) Pulse Ox O2 Delivery O2 Flow Rate FiO2 07/18/19 08:00 Room Air 07/18/19 07:15 98.9 77 16 94/42 (59) 99 98.9 Physical Exam Physical Exam General appearance - alert,well appearing, and in no distress and oriented x3 Head -normocephalic atraumatic anicteric no thrush oral mucosa moist Neck supple no JVD no thyromegaly no carotid bruit no cervical lymphadenopathy Chest - clear to auscultation, no wheezes, Heart - S1 and S2 normal Axilla right previous I&D site has small area of redness induration tenderness, no fluctuance, no purulent drainage Abdomen - soft, nontender, nondistended, no masses Neurological - alert and oriented x3, grossly nonfocal Musculoskeletal - no muscular tenderness noted Extremities - no pedal edema Skin - warm and dry except for above Mental Status -appropriate mood General: Alert, Oriented X3, Cooperative, No acute distress Heart: Regular rate, Normal S1, Normal S2, No murmurs Lungs: Clear Abdomen: Normal bowel sounds, Soft Extremities: No cyanosis, No edema Skin: Other (The right axilla has a clean dry intact incision) Labs LABS Procedure Result BLOOD CULTURE Preliminary NO GROWTH AFTER 2 DAYS Laboratory Tests Test 07/17/19 10:56 07/17/19 16:27 07/17/19 20:26 07/18/19 01:24 Glucose (Fingerstick) 267 mg/dL (70-99) 172 mg/dL (70-99) 184 mg/dL (70-99) White Blood Count 5.6 x10^3/uL (4.0-11.0) Red Blood Count 4.25 x10^6/uL (3.50-5.40) Hemoglobin 13.1 g/dL (12.0-15.5) Hematocrit 36.5 % (36.0-47.0) Mean Corpuscular Volume 86 fL (79-100) Mean Corpuscular Hemoglobin 31 pg (25-35) Mean Corpuscular Hemoglobin Concent 36 g/dL (31-37) Red Cell Distribution Width 12.8 % (11.5-14.5) Platelet Count 212 x10^3/uL (140-400) Neutrophils (%) (Auto) 56 % (31-73) Lymphocytes (%) (Auto) 36 % (24-48) Monocytes (%) (Auto) 6 % (0-9) Eosinophils (%) (Auto) 1 % (0-3) Basophils (%) (Auto) 1 % (0-3) Neutrophils # (Auto) 3.1 x10^3/uL (1.8-7.7) Lymphocytes # (Auto) 2.0 x10^3/uL (1.0-4.8) Monocytes # (Auto) 0.4 x10^3/uL (0.0-1.1) Eosinophils # (Auto) 0.0 x10^3/uL (0.0-0.7) Basophils # (Auto) 0.1 x10^3/uL (0.0-0.2) Sodium Level 137 mmol/L (136-145) Potassium Level 3.9 mmol/L (3.5-5.1) Chloride Level 103 mmol/L (98-107) Carbon Dioxide Level 26 mmol/L (21-32) Anion Gap 8 (6-14) Blood Urea Nitrogen 13 mg/dL (7-20) Creatinine 0.6 mg/dL (0.6-1.0) Estimated GFR (Cockcroft-Gault) 136.9 Glucose Level 324 mg/dL (70-99) Calcium Level 8.3 mg/dL (8.5-10.1) Test 07/18/19 07:12 Glucose (Fingerstick) 250 mg/dL (70-99) Assessment and Plan Assessmemt and Plan Problems Medical Problems: (1) Abscess of right axilla Status: Acute (2) Hyperglycemia due to type 2 diabetes mellitus Status: Acute Comment Review of Relevant I have reviewed the following items dasha (where applicable) has been applied. Labs Laboratory Tests Test 07/16/19 11:49 07/16/19 12:30 07/16/19 16:17 07/16/19 20:59 Glucose (Fingerstick) 307 mg/dL (70-99) 276 mg/dL (70-99) 372 mg/dL (70-99) Urine Chlamydia DNA (PCR) Negative (Negative) Neisseria gonorrhoeae DNA (PCR) Negative (Negative) Test 07/17/19 06:58 07/17/19 10:56 07/17/19 16:27 07/17/19 20:26 Glucose (Fingerstick) 230 mg/dL (70-99) 267 mg/dL (70-99) 172 mg/dL (70-99) 184 mg/dL (70-99) Test 07/18/19 01:24 07/18/19 07:12 White Blood Count 5.6 x10^3/uL (4.0-11.0) Red Blood Count 4.25 x10^6/uL (3.50-5.40) Hemoglobin 13.1 g/dL (12.0-15.5) Hematocrit 36.5 % (36.0-47.0) Mean Corpuscular Volume 86 fL (79-100) Mean Corpuscular Hemoglobin 31 pg (25-35) Mean Corpuscular Hemoglobin Concent 36 g/dL (31-37) Red Cell Distribution Width 12.8 % (11.5-14.5) Platelet Count 212 x10^3/uL (140-400) Neutrophils (%) (Auto) 56 % (31-73) Lymphocytes (%) (Auto) 36 % (24-48) Monocytes (%) (Auto) 6 % (0-9) Eosinophils (%) (Auto) 1 % (0-3) Basophils (%) (Auto) 1 % (0-3) Neutrophils # (Auto) 3.1 x10^3/uL (1.8-7.7) Lymphocytes # (Auto) 2.0 x10^3/uL (1.0-4.8) Monocytes # (Auto) 0.4 x10^3/uL (0.0-1.1) Eosinophils # (Auto) 0.0 x10^3/uL (0.0-0.7) Basophils # (Auto) 0.1 x10^3/uL (0.0-0.2) Sodium Level 137 mmol/L (136-145) Potassium Level 3.9 mmol/L (3.5-5.1) Chloride Level 103 mmol/L (98-107) Carbon Dioxide Level 26 mmol/L (21-32) Anion Gap 8 (6-14) Blood Urea Nitrogen 13 mg/dL (7-20) Creatinine 0.6 mg/dL (0.6-1.0) Estimated GFR (Cockcroft-Gault) 136.9 Glucose Level 324 mg/dL (70-99) Calcium Level 8.3 mg/dL (8.5-10.1) Glucose (Fingerstick) 250 mg/dL (70-99) Laboratory Tests Test 07/17/19 10:56 07/17/19 16:27 07/17/19 20:26 07/18/19 01:24 Glucose (Fingerstick) 267 mg/dL (70-99) 172 mg/dL (70-99) 184 mg/dL (70-99) White Blood Count 5.6 x10^3/uL (4.0-11.0) Red Blood Count 4.25 x10^6/uL (3.50-5.40) Hemoglobin 13.1 g/dL (12.0-15.5) Hematocrit 36.5 % (36.0-47.0) Mean Corpuscular Volume 86 fL (79-100) Mean Corpuscular Hemoglobin 31 pg (25-35) Mean Corpuscular Hemoglobin Concent 36 g/dL (31-37) Red Cell Distribution Width 12.8 % (11.5-14.5) Platelet Count 212 x10^3/uL (140-400) Neutrophils (%) (Auto) 56 % (31-73) Lymphocytes (%) (Auto) 36 % (24-48) Monocytes (%) (Auto) 6 % (0-9) Eosinophils (%) (Auto) 1 % (0-3) Basophils (%) (Auto) 1 % (0-3) Neutrophils # (Auto) 3.1 x10^3/uL (1.8-7.7) Lymphocytes # (Auto) 2.0 x10^3/uL (1.0-4.8) Monocytes # (Auto) 0.4 x10^3/uL (0.0-1.1) Eosinophils # (Auto) 0.0 x10^3/uL (0.0-0.7) Basophils # (Auto) 0.1 x10^3/uL (0.0-0.2) Sodium Level 137 mmol/L (136-145) Potassium Level 3.9 mmol/L (3.5-5.1) Chloride Level 103 mmol/L (98-107) Carbon Dioxide Level 26 mmol/L (21-32) Anion Gap 8 (6-14) Blood Urea Nitrogen 13 mg/dL (7-20) Creatinine 0.6 mg/dL (0.6-1.0) Estimated GFR (Cockcroft-Gault) 136.9 Glucose Level 324 mg/dL (70-99) Calcium Level 8.3 mg/dL (8.5-10.1) Test 07/18/19 07:12 Glucose (Fingerstick) 250 mg/dL (70-99) Microbiology 07/15/19 Blood Culture - Preliminary, Resulted NO GROWTH AFTER 2 DAYS Medications Current Medications Lidocaine HCl (Lidocaine 1% 20ml Vial) 20 ml STK-MED ONCE .ROUTE ; Start 07/15/19 at 11:49; Stop 07/15/19 at 11:49; Status DC Sodium Chloride 1,000 ml @ 1,000 mls/hr 1X ONCE IV Last administered on 07/15/19at 12:00; Start 07/15/19 at 12:00; Stop 07/15/19 at 12:59; Status DC Insulin Human Regular (HumuLIN R VIAL) 10 unit 1X ONCE IV Last administered on 07/15/19at 12:26; Start 07/15/19 at 12:00; Stop 07/15/19 at 12:21; Status DC Ondansetron HCl (Zofran) 4 mg 1X ONCE IV Last administered on 07/15/19at 12:17; Start 07/15/19 at 12:00; Stop 07/15/19 at 12:01; Status DC Clindamycin Phosphate 50 ml @ 100 mls/hr 1X ONCE IV Last administered on 07/15/19at 12:19; Start 07/15/19 at 12:00; Stop 07/15/19 at 12:29; Status DC Fentanyl Citrate (Fentanyl 2ml Vial) 50 mcg 1X ONCE IV Last administered on 07/15/19at 12:17; Start 07/15/19 at 12:15; Stop 07/15/19 at 12:16; Status DC Ondansetron HCl (Zofran) 4 mg 1X ONCE IV ; Start 07/15/19 at 12:15; Stop 07/15/19 at 12:16; Status DC Insulin Human Regular 100 ml @ 0 mls/hr 1X ONCE IV Last administered on 07/15/19at 13:23; Start 07/15/19 at 13:15; Stop 07/15/19 at 13:16; Status DC Ondansetron HCl (Zofran) 4 mg PRN Q8HRS PRN IV NAUSEA/VOMITING; Start 07/15/19 at 13:15; Stop 07/15/19 at 15:55; Status DC Sodium Chloride 1,000 ml @ 150 mls/hr Q6H40M IV Last administered on 07/16/19at 06:08; Start 07/15/19 at 13:08; Stop 07/16/19 at 13:07; Status DC Acetaminophen (Tylenol) 650 mg PRN Q4HRS PRN PO FEVER > 100.3'F Last administered on 07/15/19at 20:15; Start 07/15/19 at 13:15; Stop 07/16/19 at 13:14; Status DC Sodium Chloride 1,000 ml @ 1,000 mls/hr Q1H IV ; Start 07/15/19 at 13:51; Stop 07/15/19 at 14:50; Status DC Sodium Chloride 1,000 ml @ 250 mls/hr Q4H IV ; Start 07/15/19 at 13:54; Stop 07/16/19 at 11:41; Status DC Insulin Human Regular 100 unit/ Sodium Chloride 101 ml @ 0 mls/hr CONT PRN PRN IV PER PROTOCOL; Start 07/15/19 at 14:00; Stop 07/17/19 at 12:35; Status DC Potassium Chloride/Water 100 ml @ 100 mls/hr PRN Q1HR PRN IV SEE COMMENTS Last administered on 07/15/19at 18:55; Start 07/15/19 at 14:00 Potassium Chloride/Water 100 ml @ 100 mls/hr PRN Q1HR PRN IV SEE COMMENTS; Start 07/15/19 at 14:00 Potassium Chloride/Water 100 ml @ 100 mls/hr PRN Q1HR PRN IV SEE COMMENTS; Start 07/15/19 at 14:00 Magnesium Sulfate 100 ml @ 25 mls/hr PRN DAILY PRN IV MAG < 1.8 Last administered on 07/16/19at 14:01; Start 07/15/19 at 13:57; Stop 07/19/19 at 09:01 Sodium Phosphate 40 mmol/Sodium Chloride 513.3333 ml @ 83.3 mls/hr 1X PRN PRN IV SEE COMMENTS; Start 07/15/19 at 14:00 Sodium Phosphate 20 mmol/Sodium Chloride 256.6667 ml @ 62.5 mls/hr 1X PRN PRN IV SEE COMMENTS; Start 07/15/19 at 14:00 Sodium Phosphate 10 mmol/Sodium Chloride 253.3333 ml @ 25 mls/hr 1X PRN PRN IV SEE COMMENTS; Start 07/15/19 at 14:00 Ceftriaxone Sodium (Rocephin) 2 gm Q24H IVP Last administered on 07/17/19at 15:55; Start 07/15/19 at 15:00 Sodium Chloride (Normal Saline Flush) 3 ml QSHIFT PRN IV AFTER MEDS AND BLOOD DRAWS; Start 07/15/19 at 14:00 Ondansetron HCl (Zofran) 4 mg PRN Q4HRS PRN IV NAUSEA/VOMITING; Start 07/15/19 at 14:00 Acetaminophen (Tylenol Supp) 650 mg PRN Q4HRS PRN TX TEMP OVER 100.4F OR MILD PAIN; Start 07/15/19 at 14:00 Clonidine HCl (Catapres) 0.1 mg PRN Q6HRS PRN PO SBP>160 OR DBP>90; Start 07/15/19 at 14:00 Sodium Monofluorophosphate (Fleet Adult) 133 ml PRN DAILY PRN TX CONSTIPATION; Start 07/15/19 at 14:00 Docusate Sodium (Colace) 100 mg PRN BID PRN PO HARD STOOLS; Start 07/15/19 at 14:00 Albuterol Sulfate (Ventolin Neb Soln) 2.5 mg PRN Q4HRS PRN NEB SHORTNESS OF BREATH; Start 07/15/19 at 14:00 Guaifenesin (Robitussin) 200 mg PRN Q4HRS PRN PO COUGH; Start 07/15/19 at 14:00 Lorazepam (Ativan) 0.5 mg PRN Q4HRS PRN PO ANXIETY / AGITATION; Start 07/15/19 at 14:00 Enoxaparin Sodium (Lovenox 40mg Syringe) 40 mg Q24H SQ Last administered on 07/15/19at 15:26; Start 07/15/19 at 15:00 Diazepam (Valium) 5 mg TID PRN PO ANXIETY; Start 07/15/19 at 14:00 Divalproex Sodium (Depakote) 500 mg DAILY PO Last administered on 07/18/19at 08:20; Start 07/16/19 at 09:00 Sodium Chloride 1,000 ml @ 250 mls/hr Q4H IV ; Start 07/15/19 at 15:48; Status UNV Sodium Chloride 1,000 ml @ 250 mls/hr Q4H IV ; Start 07/15/19 at 15:48; Stop 07/15/19 at 22:37; Status DC Dextrose/Sodium Chloride 1,000 ml @ 250 mls/hr Q4H IV ; Start 07/15/19 at 15:48; Stop 07/15/19 at 22:37; Status DC Potassium Chloride/Water 100 ml @ 100 mls/hr PRN Q1HR PRN IV SEE COMMENTS; Start 07/15/19 at 15:45; Status UNV Potassium Chloride/Water 100 ml @ 100 mls/hr PRN Q1HR PRN IV SEE COMMENTS; Start 07/15/19 at 15:45; Status UNV Potassium Chloride/Water 100 ml @ 100 mls/hr PRN Q1HR PRN IV SEE COMMENTS; Start 07/15/19 at 15:45; Status UNV Potassium Chloride/Water 100 ml @ 100 mls/hr Q1H IV Last administered on 07/16/19at 01:45; Start 07/15/19 at 17:45; Stop 07/15/19 at 23:44; Status DC Insulin Human Lispro (HumaLOG) 0-7 UNITS TIDWMEALS SQ Last administered on 07/18/19at 08:26; Start 07/16/19 at 08:00 Dextrose (Dextrose 50%-Water Syringe) 12.5 gm PRN Q15MIN PRN IV SEE COMMENTS; Start 07/15/19 at 18:00 Linezolid (Zyvox) 600 mg BID PO Last administered on 07/18/19at 08:20; Start 07/16/19 at 10:00 Insulin Human Lispro (HumaLOG) 10 units TIDWMEALS SQ ; Start 07/16/19 at 12:00; Status UNV Insulin Glargine (Lantus Syringe) 20 unit QHS SQ ; Start 07/16/19 at 21:00; Status UNV Insulin Human Lispro (HumaLOG) 10 units TIDWMEALS SQ Last administered on 07/18/19at 08:27; Start 07/16/19 at 12:00 Insulin Glargine (Lantus Syringe) 20 unit QHS SQ Last administered on 07/17/19at 21:20; Start 07/16/19 at 21:00 Lactobacillus Rhamnosus (Culturelle) 1 cap BID PO Last administered on 07/18/19at 08:20; Start 07/16/19 at 21:00 Fluconazole (Diflucan) 150 mg 1X ONCE PO Last administered on 07/17/19at 13:35; Start 07/17/19 at 13:00; Stop 07/17/19 at 13:01; Status DC Active Scripts Active Cipro (Ciprofloxacin Hcl) 250 Mg Tablet 250 Mg PO BID 4 Days Reported Valium (Diazepam) 5 Mg Tablet 5 Mg PO TID PRN Depakote (Divalproex Sodium) 500 Mg Tablet.dr 500 Mg PO DAILY Vitals/I & O Vital Sign - Last 24 Hours 07/17/19 07/17/19 07/17/19 07/17/19 10:58 14:55 19:00 19:45 Temp 98.3 98.2 98.5 98.3 98.2 98.5 Pulse 80 79 80 Resp 16 17 18 B/P (MAP) 101/54 (70) 106/52 (70) 106/61 (76) Pulse Ox 99 98 97 O2 Delivery Room Air Room Air Room Air Room Air 07/17/19 07/18/19 07/18/19 07/18/19 22:50 02:50 07:15 08:00 Temp 98.6 98.5 98.9 98.6 98.5 98.9 Pulse 78 77 77 Resp 19 18 16 B/P (MAP) 104/55 (71) 93/49 (64) 94/42 (59) Pulse Ox 98 98 99 O2 Delivery Room Air Room Air Room Air Room Air Intake and Output 07/17/19 07/17/19 07/18/19 15:00 23:00 07:00 Intake Total 840 ml 1340 ml 80 ml Output Total 1 ml Balance 840 ml 1340 ml 79 ml WANDA WEBSTER MD July 18, 2019 10:17
--- NOTE | 2019-07-18 10:32 | PDOC ---
Infectious Disease Note Subjective: Subjective Pt witthout complaints eager for dc home today Denies fever, nausea, vomiting, shortness of breath, diarrhea, abdominal pain, rash Otherwise as above Vital Signs: Vital Signs Vital Signs Date Time Temp Pulse Resp B/P (MAP) Pulse Ox O2 Delivery O2 Flow Rate FiO2 07/18/19 08:00 Room Air 07/18/19 07:15 98.9 77 16 94/42 (59) 99 98.9 Physical Exam: PHYSICAL EXAM General appearance - alert,well appearing, and in no distress and oriented x3 Head -normocephalic atraumatic anicteric no thrush oral mucosa moist Neck supple no JVD no thyromegaly no carotid bruit no cervical lymphadenopathy Chest - clear to auscultation, no wheezes, Heart - S1 and S2 normal Axilla right previous I&D site has small area of redness induration tenderness, no fluctuance, no purulent drainage Abdomen - soft, nontender, nondistended, no masses Neurological - alert and oriented x3, grossly nonfocal Musculoskeletal - no muscular tenderness noted Extremities - no pedal edema Skin - warm and dry except for above Mental Status -appropriate mood Medications: Inpatient Meds: Current Medications Medications (Trade) Dose Ordered Sig/Esme Start Time Stop Time Status Last Admin Dose Admin Acetaminophen (Tylenol Supp) 650 mg PRN Q4HRS PRN 07/15/19 14:00 Acetaminophen (Tylenol) 650 mg PRN Q4HRS PRN 07/15/19 13:15 07/16/19 13:14 DC 07/15/19 20:15 650 MG Albuterol Sulfate (Ventolin Neb Soln) 2.5 mg PRN Q4HRS PRN 07/15/19 14:00 Ceftriaxone Sodium (Rocephin) 2 gm Q24H 07/15/19 15:00 07/17/19 15:55 2 GM Clindamycin Phosphate 50 ml @ 100 mls/hr 1X ONCE 07/15/19 12:00 07/15/19 12:29 DC 07/15/19 12:19 100 MLS/HR Clonidine HCl (Catapres) 0.1 mg PRN Q6HRS PRN 07/15/19 14:00 Dextrose (Dextrose 50%-Water Syringe) 12.5 gm PRN Q15MIN PRN 5/24/20 18:00 Dextrose/Sodium Chloride 1,000 ml @ 250 mls/hr Q4H 07/15/19 15:48 07/15/19 22:37 DC Diazepam (Valium) 5 mg TID PRN 07/15/19 14:00 Divalproex Sodium (Depakote) 500 mg DAILY 07/16/19 09:00 07/18/19 08:20 500 MG Docusate Sodium (Colace) 100 mg PRN BID PRN 07/15/19 14:00 Enoxaparin Sodium (Lovenox 40mg Syringe) 40 mg Q24H 07/15/19 15:00 07/15/19 15:26 40 MG Fentanyl Citrate (Fentanyl 2ml Vial) 50 mcg 1X ONCE 07/15/19 12:15 07/15/19 12:16 DC 07/15/19 12:17 50 MCG Fluconazole (Diflucan) 150 mg 1X ONCE 07/17/19 13:00 07/17/19 13:01 DC 07/17/19 13:35 150 MG Guaifenesin (Robitussin) 200 mg PRN Q4HRS PRN 07/15/19 14:00 Insulin Glargine (Lantus Syringe) 20 unit QHS 07/16/19 21:00 07/17/19 21:20 20 UNIT Insulin Human Lispro (HumaLOG) 10 units TIDWMEALS 07/16/19 12:00 07/18/19 08:27 10 UNITS Insulin Human Regular 100 ml @ 0 mls/hr 1X ONCE 07/15/19 13:15 07/15/19 13:16 DC 07/15/19 13:23 18.2 MLS/HR Insulin Human Regular (HumuLIN R VIAL) 10 unit 1X ONCE 07/15/19 12:00 07/15/19 12:21 DC 07/15/19 12:26 10 UNIT Insulin Human Regular 100 unit/ Sodium Chloride 101 ml @ 0 mls/hr CONT PRN PRN 07/15/19 14:00 07/17/19 12:35 DC Lactobacillus Rhamnosus (Culturelle) 1 cap BID 07/16/19 21:00 07/18/19 08:20 1 CAP Lidocaine HCl (Lidocaine 1% 20ml Vial) 20 ml STK-MED ONCE 07/15/19 11:49 07/15/19 11:49 DC Linezolid (Zyvox) 600 mg BID 07/16/19 10:00 07/18/19 08:20 600 MG Lorazepam (Ativan) 0.5 mg PRN Q4HRS PRN 07/15/19 14:00 Magnesium Sulfate 100 ml @ 25 mls/hr PRN DAILY PRN 07/15/19 13:57 07/19/19 09:01 07/16/19 14:01 25 MLS/HR Ondansetron HCl (Zofran) 4 mg PRN Q4HRS PRN 07/15/19 14:00 Potassium Chloride/Water 100 ml @ 100 mls/hr Q1H 07/15/19 17:45 07/15/19 23:44 DC 07/16/19 01:45 100 MLS/HR Sodium Monofluorophosphate (Fleet Adult) 133 ml PRN DAILY PRN 07/15/19 14:00 Sodium Chloride 1,000 ml @ 250 mls/hr Q4H 07/15/19 15:48 07/15/19 22:37 DC Sodium Chloride (Normal Saline Flush) 3 ml QSHIFT PRN 07/15/19 14:00 Sodium Phosphate 10 mmol/Sodium Chloride 253.3333 ml @ 25 mls/hr 1X PRN PRN 07/15/19 14:00 Sodium Phosphate 20 mmol/Sodium Chloride 256.6667 ml @ 62.5 mls/hr 1X PRN PRN 07/15/19 14:00 Sodium Phosphate 40 mmol/Sodium Chloride 513.3333 ml @ 83.3 mls/hr 1X PRN PRN 07/15/19 14:00 Labs: Lab Laboratory Tests Test 07/17/19 10:56 07/17/19 16:27 07/17/19 20:26 07/18/19 01:24 Glucose (Fingerstick) 267 mg/dL (70-99) 172 mg/dL (70-99) 184 mg/dL (70-99) White Blood Count 5.6 x10^3/uL (4.0-11.0) Red Blood Count 4.25 x10^6/uL (3.50-5.40) Hemoglobin 13.1 g/dL (12.0-15.5) Hematocrit 36.5 % (36.0-47.0) Mean Corpuscular Volume 86 fL (79-100) Mean Corpuscular Hemoglobin 31 pg (25-35) Mean Corpuscular Hemoglobin Concent 36 g/dL (31-37) Red Cell Distribution Width 12.8 % (11.5-14.5) Platelet Count 212 x10^3/uL (140-400) Neutrophils (%) (Auto) 56 % (31-73) Lymphocytes (%) (Auto) 36 % (24-48) Monocytes (%) (Auto) 6 % (0-9) Eosinophils (%) (Auto) 1 % (0-3) Basophils (%) (Auto) 1 % (0-3) Neutrophils # (Auto) 3.1 x10^3/uL (1.8-7.7) Lymphocytes # (Auto) 2.0 x10^3/uL (1.0-4.8) Monocytes # (Auto) 0.4 x10^3/uL (0.0-1.1) Eosinophils # (Auto) 0.0 x10^3/uL (0.0-0.7) Basophils # (Auto) 0.1 x10^3/uL (0.0-0.2) Sodium Level 137 mmol/L (136-145) Potassium Level 3.9 mmol/L (3.5-5.1) Chloride Level 103 mmol/L (98-107) Carbon Dioxide Level 26 mmol/L (21-32) Anion Gap 8 (6-14) Blood Urea Nitrogen 13 mg/dL (7-20) Creatinine 0.6 mg/dL (0.6-1.0) Estimated GFR (Cockcroft-Gault) 136.9 Glucose Level 324 mg/dL (70-99) Calcium Level 8.3 mg/dL (8.5-10.1) Test 07/18/19 07:12 Glucose (Fingerstick) 250 mg/dL (70-99) Objective: Assessment: Right axillary abscess status post I&D in ER, no cultures available Diabetes mellitus newly diagnosed History of substance dependence Hyponatremia, hypokalemia History of STDs gonorrhea, treated at [place] History of HIV negative tested within last 6 months per patient report at [place] Urine beta-hCG Plan: Plan of Care DC ceftriaxone linezolid for 7days;sw to assist Urine for gonorrhea and chlamydia negative Quit illicit drug use Local wound care Optimal diabetes control Discussed with nursing staff CHELSEA HART MD July 18, 2019 10:31
[2019-07-18 10:50] VITALS: BP 102/62
--- NOTE | 2019-07-18 11:51 | PDOC3 ---
Discharge Summary Date of Admission: July 15, 2019 Date of Discharge: July 18, 2019 Follow-Up: 3-5 days Admitting Diagnosis comment: DISCHARGE DX New onset diabetes Right axilla abscess Methamphetamine abuse History of STDs gonorrhea, treated at [facility] ======= PO linezolid 600MG X 7 DAYS f/u urine for gonorrhea and chlamydia NEG SEE PCP 2-3 DAYS D/C HOME D/C PLANNING 34 MIN History of Present Illness History of Present Illness 07/18/2019 Patient seen and examined She is talkative, alert clean incision on the right axilla Discussed with RN Chart reviewed Continue ceftriaxone/ linezolid f/u urine for gonorrhea and chlamydia Vitals Vitals Vital Signs Date Time Temp Pulse Resp B/P (MAP) Pulse Ox O2 Delivery O2 Flow Rate FiO2 07/18/19 08:00 Room Air 07/18/19 07:15 98.9 77 16 94/42 (59) 99 98.9 Physical Exam Physical Exam General appearance - alert,well appearing, and in no distress and oriented x3 Head -normocephalic atraumatic anicteric no thrush oral mucosa moist Neck supple no JVD no thyromegaly no carotid bruit no cervical lymphadenopathy Chest - clear to auscultation, no wheezes, Heart - S1 and S2 normal Axilla right previous I&D site has small area of redness induration tenderness, no fluctuance, no purulent drainage Abdomen - soft, nontender, nondistended, no masses Neurological - alert and oriented x3, grossly nonfocal Musculoskeletal - no muscular tenderness noted Extremities - no pedal edema Skin - warm and dry except for above Mental Status -appropriate mood General: Alert, Oriented X3, Cooperative, No acute distress Heart: Regular rate, Normal S1, Normal S2, No murmurs Lungs: Clear Abdomen: Normal bowel sounds, Soft Extremities: No cyanosis, No edema Skin: Other (The right axilla has a clean dry intact incision) Labs LABS Procedure Result BLOOD CULTURE Preliminary NO GROWTH AFTER 2 DAYS FINAL DIAGNOSIS Problems Medical Problems: (1) Abscess of right axilla Status: Acute (2) Hyperglycemia due to type 2 diabetes mellitus Status: Acute Brief Hospital Course Ms. Hurst is a 34 old [sex] who presented with [ DKA WITH AXILLARY ABSCESS ] CONDITION AT DISCHARGE: Improved Discharge Medications Current Medications Lidocaine HCl (Lidocaine 1% 20ml Vial) 20 ml [employer]-IB ONCE .ROUTE ; Start 07/15/19 at 11:49; Stop 07/15/19 at 11:49; Status DC Sodium Chloride 1,000 ml @ 1,000 mls/hr 1X ONCE IV Last administered on 07/15/19at 12:00; Start 07/15/19 at 12:00; Stop 07/15/19 at 12:59; Status DC Insulin Human Regular (HumuLIN R VIAL) 10 unit 1X ONCE IV Last administered on 07/15/19at 12:26; Start 07/15/19 at 12:00; Stop 07/15/19 at 12:21; Status DC Ondansetron HCl (Zofran) 4 mg 1X ONCE IV Last administered on 07/15/19at 12:17; Start 07/15/19 at 12:00; Stop 07/15/19 at 12:01; Status DC Clindamycin Phosphate 50 ml @ 100 mls/hr 1X ONCE IV Last administered on 07/15/19at 12:19; Start 07/15/19 at 12:00; Stop 07/15/19 at 12:29; Status DC Fentanyl Citrate (Fentanyl 2ml Vial) 50 mcg 1X ONCE IV Last administered on 07/15/19at 12:17; Start 07/15/19 at 12:15; Stop 07/15/19 at 12:16; Status DC Ondansetron HCl (Zofran) 4 mg 1X ONCE IV ; Start 07/15/19 at 12:15; Stop 07/15/19 at 12:16; Status DC Insulin Human Regular 100 ml @ 0 mls/hr 1X ONCE IV Last administered on 07/15/19at 13:23; Start 07/15/19 at 13:15; Stop 07/15/19 at 13:16; Status DC Ondansetron HCl (Zofran) 4 mg PRN Q8HRS PRN IV NAUSEA/VOMITING; Start 07/15/19 at 13:15; Stop 07/15/19 at 15:55; Status DC Sodium Chloride 1,000 ml @ 150 mls/hr Q6H40M IV Last administered on 07/16/19at 06:08; Start 07/15/19 at 13:08; Stop 07/16/19 at 13:07; Status DC Acetaminophen (Tylenol) 650 mg PRN Q4HRS PRN PO FEVER > 100.3'F Last administered on 07/15/19at 20:15; Start 07/15/19 at 13:15; Stop 07/16/19 at 13:14; Status DC Sodium Chloride 1,000 ml @ 1,000 mls/hr Q1H IV ; Start 07/15/19 at 13:51; Stop 07/15/19 at 14:50; Status DC Sodium Chloride 1,000 ml @ 250 mls/hr Q4H IV ; Start 07/15/19 at 13:54; Stop 07/16/19 at 11:41; Status DC Insulin Human Regular 100 unit/ Sodium Chloride 101 ml @ 0 mls/hr CONT PRN PRN IV PER PROTOCOL; Start 07/15/19 at 14:00; Stop 07/17/19 at 12:35; Status DC Potassium Chloride/Water 100 ml @ 100 mls/hr PRN Q1HR PRN IV SEE COMMENTS Last administered on 07/15/19at 18:55; Start 07/15/19 at 14:00 Potassium Chloride/Water 100 ml @ 100 mls/hr PRN Q1HR PRN IV SEE COMMENTS; Start 07/15/19 at 14:00 Potassium Chloride/Water 100 ml @ 100 mls/hr PRN Q1HR PRN IV SEE COMMENTS; Start 07/15/19 at 14:00 Magnesium Sulfate 100 ml @ 25 mls/hr PRN DAILY PRN IV MAG < 1.8 Last administered on 07/16/19at 14:01; Start 07/15/19 at 13:57; Stop 07/19/19 at 09:01 Sodium Phosphate 40 mmol/Sodium Chloride 513.3333 ml @ 83.3 mls/hr 1X PRN PRN IV SEE COMMENTS; Start 07/15/19 at 14:00 Sodium Phosphate 20 mmol/Sodium Chloride 256.6667 ml @ 62.5 mls/hr 1X PRN PRN IV SEE COMMENTS; Start 07/15/19 at 14:00 Sodium Phosphate 10 mmol/Sodium Chloride 253.3333 ml @ 25 mls/hr 1X PRN PRN IV SEE COMMENTS; Start 07/15/19 at 14:00 Ceftriaxone Sodium (Rocephin) 2 gm Q24H IVP Last administered on 07/17/19at 15:55; Start 07/15/19 at 15:00 Sodium Chloride (Normal Saline Flush) 3 ml QSHIFT PRN IV AFTER MEDS AND BLOOD DRAWS; Start 07/15/19 at 14:00 Ondansetron HCl (Zofran) 4 mg PRN Q4HRS PRN IV NAUSEA/VOMITING; Start 07/15/19 at 14:00 Acetaminophen (Tylenol Supp) 650 mg PRN Q4HRS PRN [place] TEMP OVER 100.4F OR MILD PAIN; Start 07/15/19 at 14:00 Clonidine HCl (Catapres) 0.1 mg PRN Q6HRS PRN PO SBP>160 OR DBP>90; Start 07/15/19 at 14:00 Sodium Monofluorophosphate (Fleet Adult) 133 ml PRN DAILY PRN [place] CONSTIPATION; Start 07/15/19 at 14:00 Docusate Sodium (Colace) 100 mg PRN BID PRN PO HARD STOOLS; Start 07/15/19 at 14:00 Albuterol Sulfate (Ventolin Neb Soln) 2.5 mg PRN Q4HRS PRN NEB SHORTNESS OF BREATH; Start 07/15/19 at 14:00 Guaifenesin (Robitussin) 200 mg PRN Q4HRS PRN PO COUGH; Start 07/15/19 at 14:00 Lorazepam (Ativan) 0.5 mg PRN Q4HRS PRN PO ANXIETY/AGITATION, 1st choice; Start 07/15/19 at 14:00 Enoxaparin Sodium (Lovenox 40mg Syringe) 40 mg Q24H SQ Last administered on 07/15/19at 15:26; Start 07/15/19 at 15:00 Diazepam (Valium) 5 mg TID PRN PO ANXIETY, 2nd choice; Start 07/15/19 at 14:00 Divalproex Sodium (Depakote) 500 mg DAILY PO Last administered on 07/18/19at 08:20; Start 07/16/19 at 09:00 Sodium Chloride 1,000 ml @ 250 mls/hr Q4H IV ; Start 07/15/19 at 15:48; Status UNV Sodium Chloride 1,000 ml @ 250 mls/hr Q4H IV ; Start 07/15/19 at 15:48; Stop 07/15/19 at 22:37; Status DC Dextrose/Sodium Chloride 1,000 ml @ 250 mls/hr Q4H IV ; Start 07/15/19 at 15:48; Stop 07/15/19 at 22:37; Status DC Potassium Chloride/Water 100 ml @ 100 mls/hr PRN Q1HR PRN IV SEE COMMENTS; Start 07/15/19 at 15:45; Status UNV Potassium Chloride/Water 100 ml @ 100 mls/hr PRN Q1HR PRN IV SEE COMMENTS; Start 07/15/19 at 15:45; Status UNV Potassium Chloride/Water 100 ml @ 100 mls/hr PRN Q1HR PRN IV SEE COMMENTS; Start 07/15/19 at 15:45; Status UNV Potassium Chloride/Water 100 ml @ 100 mls/hr Q1H IV Last administered on 07/16/19at 01:45; Start 07/15/19 at 17:45; Stop 07/15/19 at 23:44; Status DC Insulin Human Lispro (HumaLOG) 0-7 UNITS TIDWMEALS SQ Last administered on 07/18/19at 08:26; Start 07/16/19 at 08:00 Dextrose (Dextrose 50%-Water Syringe) 12.5 gm PRN Q15MIN PRN IV SEE COMMENTS; Start 07/15/19 at 18:00 Linezolid (Zyvox) 600 mg BID PO Last administered on 07/18/19at 08:20; Start 07/16/19 at 10:00 Insulin Human Lispro (HumaLOG) 10 units TIDWMEALS SQ ; Start 07/16/19 at 12:00; Status UNV Insulin Glargine (Lantus Syringe) 20 unit QHS SQ ; Start 07/16/19 at 21:00; Status UNV Insulin Human Lispro (HumaLOG) 10 units TIDWMEALS SQ Last administered on at 08:27; Start 07/16/19 at 12:00 Insulin Glargine (Lantus Syringe) 20 unit QHS SQ Last administered on 07/17/19at 21:20; Start 07/16/19 at 21:00 Lactobacillus Rhamnosus (Culturelle) 1 cap BID PO Last administered on 07/18/19at 08:20; Start 07/16/19 at 21:00 Fluconazole (Diflucan) 150 mg 1X ONCE PO Last administered on 07/17/19at 13:35; Start 07/17/19 at 13:00; Stop 07/17/19 at 13:01; Status DC Active Scripts Active Cipro (Ciprofloxacin Hcl) 250 Mg Tablet 250 Mg PO BID 4 Days Reported Valium (Diazepam) 5 Mg Tablet 5 Mg PO TID PRN Depakote (Divalproex Sodium) 500 Mg Tablet.dr 500 Mg PO DAILY Vital Signs Vital Signs Date Time Temp Pulse Resp B/P (MAP) Pulse Ox O2 Delivery O2 Flow Rate FiO2 07/18/19 10:50 98.4 80 16 102/62 (75) 98 Room Air 98.4 Labs Laboratory Tests Test 07/16/19 12:30 07/16/19 16:17 07/16/19 20:59 07/17/19 06:58 Urine Chlamydia DNA (PCR) Negative (Negative) Neisseria gonorrhoeae DNA (PCR) Negative (Negative) Glucose (Fingerstick) 276 mg/dL (70-99) 372 mg/dL (70-99) 230 mg/dL (70-99) Test 07/17/19 10:56 07/17/19 16:27 07/17/19 20:26 07/18/19 01:24 Glucose (Fingerstick) 267 mg/dL (-99) 172 mg/dL (70-99) 184 mg/dL (70-99) White Blood Count 5.6 x10^3/uL (4.0-11.0) Red Blood Count 4.25 x10^6/uL (3.50-5.40) Hemoglobin 13.1 g/dL (12.0-15.5) Hematocrit 36.5 % (36.0-47.0) Mean Corpuscular Volume 86 fL (79-100) Mean Corpuscular Hemoglobin 31 pg (25-35) Mean Corpuscular Hemoglobin Concent 36 g/dL (31-37) Red Cell Distribution Width 12.8 % (11.5-14.5) Platelet Count 212 x10^3/uL (140-400) Neutrophils (%) (Auto) 56 % (31-73) Lymphocytes (%) (Auto) 36 % (24-48) Monocytes (%) (Auto) 6 % (0-9) Eosinophils (%) (Auto) 1 % (0-3) Basophils (%) (Auto) 1 % (0-3) Neutrophils # (Auto) 3.1 x10^3/uL (1.8-7.7) Lymphocytes # (Auto) 2.0 x10^3/uL (1.0-4.8) Monocytes # (Auto) 0.4 x10^3/uL (0.0-1.1) Eosinophils # (Auto) 0.0 x10^3/uL (0.0-0.7) Basophils # (Auto) 0.1 x10^3/uL (0.0-0.2) Sodium Level 137 mmol/L (136-145) Potassium Level 3.9 mmol/L (3.5-5.1) Chloride Level 103 mmol/L (98-107) Carbon Dioxide Level 26 mmol/L (21-32) Anion Gap 8 (6-14) Blood Urea Nitrogen 13 mg/dL (7-20) Creatinine 0.6 mg/dL (0.6-1.0) Estimated GFR (Cockcroft-Gault) 136.9 Glucose Level 324 mg/dL (70-99) Calcium Level 8.3 mg/dL (8.5-10.1) Test 07/18/19 07:12 07/18/19 11:10 Glucose (Fingerstick) 250 mg/dL (70-99) 306 mg/dL (70-99) Laboratory Tests Test 07/17/19 16:27 07/17/19 20:26 07/18/19 01:24 07/18/19 07:12 Glucose (Fingerstick) 172 mg/dL (70-99) 184 mg/dL (70-99) 250 mg/dL (70-99) White Blood Count 5.6 x10^3/uL (4.0-11.0) Red Blood Count 4.25 x10^6/uL (3.50-5.40) Hemoglobin 13.1 g/dL (12.0-15.5) Hematocrit 36.5 % (36.0-47.0) Mean Corpuscular Volume 86 fL (79-100) Mean Corpuscular Hemoglobin 31 pg (25-35) Mean Corpuscular Hemoglobin Concent 36 g/dL (31-37) Red Cell Distribution Width 12.8 % (11.5-14.5) Platelet Count 212 x10^3/uL (140-400) Neutrophils (%) (Auto) 56 % (31-73) Lymphocytes (%) (Auto) 36 % (24-48) Monocytes (%) (Auto) 6 % (0-9) Eosinophils (%) (Auto) 1 % (0-3) Basophils (%) (Auto) 1 % (0-3) Neutrophils # (Auto) 3.1 x10^3/uL (1.8-7.7) Lymphocytes # (Auto) 2.0 x10^3/uL (1.0-4.8) Monocytes # (Auto) 0.4 x10^3/uL (0.0-1.1) Eosinophils # (Auto) 0.0 x10^3/uL (0.0-0.7) Basophils # (Auto) 0.1 x10^3/uL (0.0-0.2) Sodium Level 137 mmol/L (136-145) Potassium Level 3.9 mmol/L (3.5-5.1) Chloride Level 103 mmol/L (98-107) Carbon Dioxide Level 26 mmol/L (21-32) Anion Gap 8 (6-14) Blood Urea Nitrogen 13 mg/dL (7-20) Creatinine 0.6 mg/dL (0.6-1.0) Estimated GFR (Cockcroft-Gault) 136.9 Glucose Level 324 mg/dL (70-99) Calcium Level 8.3 mg/dL (8.5-10.1) Test 07/18/19 11:10 Glucose (Fingerstick) 306 mg/dL (70-99) Allergies Allergies Coded Allergies Type Severity Reaction Last Updated Verified iodine Allergy Intermediate Hives 05/25/17 Yes morphine Adverse Reaction Intermediate Nausea and Vomiting 05/25/17 Yes Disposition/Orders: D/C to Home WANDA WEBSTER MD July 18, 2019 11:51
[2019-07-18] MEDS ORDERED: LINE600T12 PO (11:55)
[2019-07-18] MEDS ORDERED: DOCU-153 PO (11:55)
[2019-07-18] MEDS ORDERED: INSU100V8 SQ (11:55)
[2019-07-18] MEDS ORDERED: LACT1CAP19 PO (11:55)
[2019-07-18] MEDS ORDERED: INSU100I11 SQ (11:55)
--- NOTE | 2019-07-18 11:58 | DISCH ---
DISCHARGE INSTRUCTIONS Condition on Discharge Condition on Discharge: Stable Activity After Discharge Activity Instructions for Disc: Activity as tolerated Bathing Instructions: No Tub Bath until see Lifting Instructions after Dis: No heavy lifting, No pulling or pushing Driving Instructions after Dis: Do not drive Diet after Discharge Diet after Discharge: Diabetic No Calorie Level Liquid Texture: Thin Liquid Checks after Discharge Checks after discharge: Check blood press - daily Contacting the DRInder after DC Call your doctor for: If your condition worsens Treatment/Equipment after DC Adaptive Equipment Issued: None Warfarin Follow-Up Warfarin Follow UP: SEE PCP IN 2 DAYS WANDA WEBSTER MD July 18, 2019 11:57
--- NOTE | 2019-07-18 13:20 | NUR ---
SS following up with discharge planning. SS met with pt and provided list of patient assistance programs for medications, diabetic supplies, and medical care. Pt's RN notified. Discharge order on the chart.
--- NOTE | 2019-07-18 14:16 | NUR ---
SS following up with discharge planning. Script received for Zy[employer]ox. Pt is self pay pt. SS contacted [employer] Assistance Program, ; fax [phone], and made request for assistance. SS faxed application and script to [employer] [facility]. SS currently awaiting confirmation of receipt from Patient Assistance Program.
[2019-07-18 14:46] VITALS: BP 99/50
[2019-07-18] MEDS: ENOXAPARIN 40 MG/0.4 ML SYRINGE. SQ SCH (15:00)
[2019-07-18] MEDS: cefTRIAXone IV Push 2 GM VIAL. IVP SCH (15:00)
--- NOTE | 2019-07-18 15:36 | NUR ---
SS following up with discharge planning. SS contacted [employer] Assistance Program, ; fax [phone], and assistance program verified receipt of application and script. They reported that pt was approved for assistance for Zyvox. They reported that medication will be shipped to pt's home via UPS and will arrive on 07/19/2019.
--- NOTE | 2019-07-18 18:08 | NUR ---
Pt discharged home with self care. Discharge instructions and prescriptions discussed. Pt verbalize understanding. Provided education on using glucometer and administering insulin. IV removed. Pt ambulated to main entrance.
== END 2019-07-18 18:09 | disposition home or self-care (01) | DRG 602 ==
LOC: ER 11:20 → CVICU 13:07 → 4 NORTH 07-16 13:22
PROVIDERS: ADMIT Family Medicine; ATTEND Family Medicine
PROC: 0X940ZZ Drainage of Right Axilla, Open Approach (ICD-10-PCS; principal; 2019-07-15)
DX: L02.411 Cutaneous abscess of right axilla (principal); E11.10 Type 2 diabetes mellitus with ketoacidosis without coma; E87.1 Hypo-osmolality and hyponatremia; F15.10 Other stimulant abuse, uncomplicated; F17.210 Nicotine dependence, cigarettes, uncomplicated; E87.6 Hypokalemia; F41.9 Anxiety disorder, unspecified; F31.9 Bipolar disorder, unspecified; Z91.041 Radiographic dye allergy status; Z83.3 Family history of diabetes mellitus; Z81.8 Family history of other mental and behavioral disorders
CPT/HCPCS: 36415; 36600; 71045; 80048; 80053; 80307; 81001; 81025; 82805; 82962; 83036; 83735; 84100; 84443; 85025; 87040; 87491; 87591; 93005; 96365; 96367; 96375; 96376; 99285; J0696; J1650; J1815; J2405; J3010; J3475; J3480; J3490; J7030; G0378

== ENCOUNTER 2020-03-28 19:32 | Emergency (ER) | payer SELFPAY ==
[~2020-03-28] VITALS: Ht 170.2 cm; Wt 66.0 kg
[~2020-03-28 19:32] MED LIST changes: +DOCU-153 PO; +INSU100I11 SQ; +INSU100V8 SQ; +LACT1CAP19 PO; +LINE600T12 PO
[2020-03-28] MEDS ORDERED: IV NORMAL SALINE 1000ML BAG 1,000 ML IV SCH (19:45)
[2020-03-28 19:50] VITALS: BP 120/74
[2020-03-28 19:51] LABS: BILIRUBIN,URINE SMALL (NEG); CLARITY,URINE CLOUDY; COLOR,URINE YELLOW; NITRITE,URINE NEGATIVE (NEG); PROTEIN,URINE 30 mg/dL (NEG-TRACE)
[2020-03-28 20:00] LABS: AMORPHOUS SEDIMENT,UR PRESENT /HPF; BACTERIA,URINE FEW /HPF (0-FEW); HYALINE CASTS, URINE FEW /HPF
[2020-03-28 20:01] LABS: RBC,URINE 0 /HPF (0-2); WBC,URINE 20-40 /HPF (0-4)
[2020-03-28 20:41] LABS: BASO % 1 % (0-3); EOS # 0.1 x10^3/uL (0.0-0.7); EOS % 1 % (0-3); HEMATOCRIT 42.4 % (36.0-47.0); HEMOGLOBIN 14.9 g/dL (12.0-15.5); LYMPH % 27 % (24-48); MEAN CORPUSCULAR HEMOGLOBIN 31 pg (25-35); MEAN CORPUSCULAR HGB CONC 35 g/dL (31-37); MEAN CORPUSCULAR VOLUME 87 fL (79-100); MONO # 0.5 x10^3/uL (0.0-1.1); MONO % 7 % (0-9); NEUT # 4.8 x10^3/uL (1.8-7.7); NEUT % 65 % (31-73); PLATELET COUNT 268 x10^3/uL (140-400); RED BLOOD COUNT 4.85 x10^6/uL (3.50-5.40); RED CELL DISTRIBUTION WIDTH 12.8 % (11.5-14.5); WHITE BLOOD COUNT 7.4 x10^3/uL (4.0-11.0)
[2020-03-28 20:51] LABS: CALCIUM 9.7 mg/dL (8.5-10.1); GFR 62.7; POTASSIUM 3.6 mmol/L (3.5-5.1)
[2020-03-28 20:57] LABS: ALBUMIN 4.3 g/dL (3.4-5.0); ALBUMIN/GLOBULIN RATIO 1.2 (1.0-1.7); TOTAL PROTEIN 7.8 g/dL (6.4-8.2)
[2020-03-28] MEDS ORDERED: IV NORMAL SALINE 1000ML BAG 1,000 ML IV ONE (21:00)
--- NOTE | 2020-03-28 21:13 | RAD ---
Exam: Chest one view INDICATION: Fatigue TECHNIQUE: Frontal view of the chest Comparisons: 07/15/2019 FINDINGS: The cardiomediastinal silhouette and pulmonary vessels are within normal limits. The lung and pleural spaces are clear. IMPRESSION: No acute cardiopulmonary process. Electronically signed by: Sandra Hannon MD (03/28/2020 9:10 PM) [facility]
--- NOTE | 2020-03-28 21:16 | PHYS DOC ---
Past Medical History Past Medical History: Bipolar, Bronchitis, Diabetes-Type II, Pneumonia, Other Additional Past Medical Histor: ENVIRONMENTAL ALLERGIES Past Surgical History: No Surgical History Smoking Status: Current Every Day Smoker Alcohol Use: None Drug Use: Methamphetamine General Adult EDM: Chief Complaint: HYPERGLYCEMIA HPI: HPI: Patient is a 34 year old female who presents with states for the last couple weeks she has not been feeling very good. She states she has had excessive thirst, frequent urination, fatigue and some nausea. She states that she was d iagnosed with diabetes last July but she has no job or health insurance so she shares insulin with her [id number]. She states that most the time she takes her blood sugars its in 500s. She states she understands the risks of not taking care of herself and her diabetes. Patient denies chest pain, shortness of breath, fever, back pain, abdominal pain, diarrhea, vomiting, burning with urination, back pain, dizziness, syncope, numbness or tingling, focal weakness, vision changes. Review of Systems: Review of Systems: Constitutional: Denies fever or chills. [] Eyes: Denies change in visual acuity. [] HENT: Denies nasal congestion or sore throat. [] Respiratory: Denies cough or shortness of breath. [] Cardiovascular: Denies chest pain or edema. [] GI: Denies abdominal pain, +nausea, denies vomiting, bloody stools or diarrhe a. +Lack of appetite. [] : Denies dysuria. [] Musculoskeletal: Denies back pain or joint pain. +Generalized fatigue[] Integument: Denies rash. [] Neurologic: Denies headache, focal weakness or sensory changes. [] Endocrine: Denies polyuria or polydipsia. [] Lymphatic: Denies swollen glands. [] Psychiatric: Denies depression or anxiety. [] Heart Score: Risk Factors: Risk Factors: DM, Current or recent (<one month) smoker, HTN, HLP, family history of CAD, obesity. Risk Scores: Score 0 - 3: 2.5% MACE over next 6 weeks - Discharge Home Score 4 - 6: 20.3% MACE over next 6 weeks - Admit for Clinical Observation Score 7 - 10: 72.7% MACE over next 6 weeks - Early Invasive Strategies Current Medications: Current Medications Medications (Trade) Dose Ordered Sig/Esme Start Time Stop Time Status Last Admin Dose Admin Sodium Chloride 1,000 ml @ 1,000 mls/hr 1X ONCE 03/28/20 21:00 03/28/20 21:59 Allergies: Allergies: Allergies Coded Allergies Type Severity Reaction Last Updated Verified iodine Allergy Intermediate Hives 05/25/17 Yes morphine Adverse Reaction Intermediate Nausea and Vomiting 05/25/17 Yes Physical Exam: PE: Constitutional: Well developed, well nourished, no acute distress, non-toxic appearance. [] HENT: Normocephalic, atraumatic, bilateral external ears normal, oropharynx moist, no oral exudates, nose normal. [] Eyes: PERRLA, EOMI, conjunctiva normal, no discharge. [] Neck: Normal range of motion, no tenderness, supple, no stridor. [] Cardiovascular:Heart rate regular rhythm, no murmur [] Lungs & Thorax: Bilateral breath sounds clear to auscultation [] Abdomen: Bowel sounds normal, soft, no tenderness, no masses, no pulsatile ma sses. [] Skin: Warm, dry, no erythema, no rash. [] Back: No tenderness, no CVA tenderness. [] Extremities: No tenderness, no cyanosis, no clubbing, ROM intact, no edema. [] Neurologic: Alert and oriented X 3, normal motor function, normal sensory function, no focal deficits noted. [] Psychologic: Affect normal, judgement normal, mood normal. [] Current Patient Data: Labs: Laboratory Tests Test 03/28/20 19:42 03/28/20 19:46 03/28/20 19:53 03/28/20 20:25 Urine Collection Type Void Urine Color Yellow Urine Clarity Cloudy Urine pH 5.0 (<5.0-8.0) Urine Specific [place] >=1.030 (1.000-1.030) Urine Protein 30 mg/dL (NEG-TRACE) Urine Glucose (UA) >=1000 mg/dL (NEG) Urine Ketones (Stick) 40 mg/dL (NEG) Urine Blood Negative (NEG) Urine Nitrite Negative (NEG) Urine Bilirubin Small (NEG) Urine Urobilinogen Dipstick 1.0 mg/dL (0.2 mg/dL) Urine Leukocyte Esterase Negative (NEG) Urine RBC 0 /HPF (0-2) Urine WBC 20-40 /HPF (0-4) Urine Squamous Epithelial Cells Mod /LPF Urine Amorphous Sediment Present /HPF Urine Bacteria Few /HPF (0-FEW) Urine Hyaline Casts Few /HPF Urine Mucus Mod /LPF POC Urine HCG, Qualitative Hcg negative (Negative) Glucose (Fingerstick) 301 mg/dL (70-99) H White Blood Count 7.4 x10^3/uL (4.0-11.0) Red Blood Count 4.85 x10^6/uL (3.50-5.40) Hemoglobin 14.9 g/dL (12.0-15.5) Hematocrit 42.4 % (36.0-47.0) Mean Corpuscular Volume 87 fL (79-100) Mean Corpuscular Hemoglobin 31 pg (25-35) Mean Corpuscular Hemoglobin Concent 35 g/dL (31-37) Red Cell Distribution Width 12.8 % (11.5-14.5) Platelet Count 268 x10^3/uL (140-400) Neutrophils (%) (Auto) 65 % (31-73) Lymphocytes (%) (Auto) 27 % (24-48) Monocytes (%) (Auto) 7 % (0-9) Eosinophils (%) (Auto) 1 % (0-3) Basophils (%) (Auto) 1 % (0-3) Neutrophils # (Auto) 4.8 x10^3/uL (1.8-7.7) Lymphocytes # (Auto) 2.0 x10^3/uL (1.0-4.8) Monocytes # (Auto) 0.5 x10^3/uL (0.0-1.1) Eosinophils # (Auto) 0.1 x10^3/uL (0.0-0.7) Basophils # (Auto) 0.0 x10^3/uL (0.0-0.2) Sodium Level 135 mmol/L (136-145) L Potassium Level 3.6 mmol/L (3.5-5.1) Chloride Level 96 mmol/L (98-107) L Carbon Dioxide Level 26 mmol/L (21-32) Anion Gap 13 (6-14) Blood Urea Nitrogen 16 mg/dL (7-20) Creatinine 1.0 mg/dL (0.6-1.0) Estimated GFR (Cockcroft-Gault) 62.7 BUN/Creatinine Ratio 16 (6-20) Glucose Level 293 mg/dL (70-99) H Calcium Level 9.7 mg/dL (8.5-10.1) Total Bilirubin 1.0 mg/dL (0.2-1.0) Aspartate Amino Transferase (AST) 17 U/L (15-37) Alanine Aminotransferase (ALT) 43 U/L (14-59) Alkaline Phosphatase 104 U/L (46-116) Total Protein 7.8 g/dL (6.4-8.2) Albumin 4.3 g/dL (3.4-5.0) Albumin/Globulin Ratio 1.2 (1.0-1.7) Laboratory Tests 03/28/20 20:25 Laboratory Tests 03/28/20 20:25 EKG: EKG: [] Radiology/Procedures: Radiology/Procedures: [] Impression: [facility] [address] [place] [address] IMAGING REPORT Signed PATIENT: MATHIEU COLE CACCOUNT: [id number] : 1985 LOCATION: ER AGE: 34 SEX: F EXAM STATUS: REG ER ORD. PHYSICIAN: SRIDEVI LEMONS APRN REASON: fatigue PROCEDURE: PORTABLE CHEST 1V Exam: Chest one view INDICATION: Fatigue TECHNIQUE: Frontal view of the chest Comparisons: 07/15/2019 FINDINGS: The cardiomediastinal silhouette and pulmonary vessels are within normal limits. The lung and pleural spaces are clear. IMPRESSION: No acute cardiopulmonary process. Electronically signed by: Sandra Damon MD (03/28/2020 9:10 PM) [facility] DICTATED and SIGNED BY: SANDRA DAMON MD DATE: 03/28/20 [id number] 0 Course & Med Decision Making: Course & Med Decision Making Pertinent Labs and Imaging studies reviewed. (See chart for details) See HPI. Abdomen is soft and nontender. Skin pink warm and dry. Vital signs are within normal limits. Alert and oriented x4. Urinalysis shows glucose, ket ones, bacteria, WBCs and proteins. Urinalysis contaminated. Blood sugar is 293 in the ED. Acetone negative. Patient is given 2 L normal saline in the ED. Patient is given resources for primary care. There are no blood work findings of endorgan damage. Gone over the care plan and patient findings with Dr. Mariscal and she agrees with the care plan. [] Sohail Disclaimer: Sohail Disclaimer: This electronic medical record was generated, in whole or in part, using a voice recognition dictation system. Departure Departure Impression: Primary Impression: Polyuria Additional Impressions: Polydipsia Hyperglycemia Disposition: 01 DC HOME SELF CARE/HOMELESS Condition: STABLE Referrals: NO PCP (PCP) Patient Instructions: 2400 Calorie Diet for Diabetes Meal Planning, Diabetes Meal Planning Guide, Diabetes, FAQs, Diets for Diabetes, Food Labeling, How to Avoid Diabetes Problems, Monitoring for Diabetes Additional Instructions: Follow-up at [facility] or [facility]. There are many places that take those without insurance. You can also buy insulin from [facility]. Drink plenty of fluids. If you begin having severe chest pain, abdominal pain, vomiting, dizziness numbness and tingling return to the emergency room. SRIDEVI LEMONS APRN Mar 28, 2020 21:16
== END 2020-03-28 23:15 | disposition home or self-care (01) ==
LOC: ER 19:32
DX: R63.1 Polydipsia (principal); R35.8 Other polyuria; E11.65 Type 2 diabetes mellitus with hyperglycemia; R35.0 Frequency of micturition; R53.83 Other fatigue; R11.0 Nausea; F31.9 Bipolar disorder, unspecified; F17.200 Nicotine dependence, unspecified, uncomplicated; Z88.5 Allergy status to narcotic agent; Z88.8 Allergy status to other drugs, medicaments and biological substances
CPT/HCPCS: 36415; 71045; 80053; 81001; 81025; 82010; 82962; 85025; 87086; 96360; 96361; 99284; J7030; 87077

== ENCOUNTER 2021-02-05 14:29 | Inpatient (IN) | payer SELFPAY ==
[~2021-02-05] VITALS: Ht 170.2 cm; Wt 50.4 kg
[2021-02-05] VITALS (7 sets, daily range): BP systolic 87–110; BP diastolic 49–72
[~2021-02-05 14:29] MED LIST changes: +DOCU-148 PO; -DOCU-153 PO
[2021-02-05] MEDS ORDERED: IV NORMAL SALINE 1000ML BAG 1,000 ML IV SCH (16:00)
--- NOTE | 2021-02-05 16:14 | RAD ---
Single AP view of the chest. Comparison: 03/28/2020. Indication: Shortness of air Findings: The heart is not enlarged. There is no pneumothorax or effusion. No air space or interstitial diseas e. Impression: 1. No acute cardiopulmonary process. Electronically signed by: Dami Martin MD (02/05/2021 4:12 PM) [facility]
--- NOTE | 2021-02-05 16:14 | PHYS DOC ---
Past Medical History Past Medical History: Bipolar, Bronchitis, Diabetes-Type II, Pneumonia, Other Additional Past Medical Histor: ENVIRONMENTAL ALLERGIES,DKA Past Surgical History: Other Additional Past Surgical Histo: ORAL Smoking Status: Current Every Day Smoker Alcohol Use: None Drug Use: Methamphetamine General Adult EDM: Chief Complaint: BLOOD SUGAR PROBLEM HPI: HPI: Patient is a 35 year old female who presents with last night began feeling like she was having acid reflux and she states that she feels that way she notices her sugar is elevated. She states she checked her sugar is in the 300s. Patient's blood sugar upon arrival was 385. She takes insulin for her diabetes. She states that she feels like she is having deep fast breathing. She did smoke meth 2 days ago. Other history is smoking, diabetes, bipolar, bronchitis, pneumonia, DKA. Denies pain at this time. Review of Systems: Review of Systems: Constitutional: Denies fever or chills. [] Eyes: Denies change in visual acuity. [] HENT: Denies nasal congestion or sore throat. [] Respiratory: Denies cough or +shortness of breath. [] Cardiovascular: Denies chest pain or edema. [] GI: + abdominal pain, +nausea, +vomiting, denies bloody stools or diarrhea. [] : Denies dysuria. [] Musculoskeletal: Denies back pain or joint pain. [] Integument: Denies rash. [] Neurologic: Denies headache, focal weakness or sensory changes. [] Endocrine: Denies polyuria or polydipsia. [] Lymphatic: Denies swollen glands. [] Psychiatric: Denies depression or anxiety. [] Heart Score: C/O Chest Pain: No HEART Score for Chest Pain: HEART Score for Chest Pain Response (Comments) Value History Slighlty/Non-Suspicious 0 ECG Nonspecific Repolarizatio 1 Age < 45 0 Risk Factors 1 or 2 Risk Factors 1 Troponin < Normal Limit 0 Total 2 Risk Factors: Risk Factors: DM, Current or recent (<one month) smoker, HTN, HLP, family history of CAD, obesity. Risk Scores: Score 0 - 3: 2.5% MACE over next 6 weeks - Discharge Home Score 4 - 6: 20.3% MACE over next 6 weeks - Admit for Clinical Observation Score 7 - 10: 72.7% MACE over next 6 weeks - Early Invasive Strategies Current Medications: Current Medications Medications (Trade) Dose Ordered Sig/Esme Start Time Stop Time Status Last Admin Dose Admin Sodium Chloride 1,000 ml @ 1,000 mls/hr Q1H 02/05/21 16:00 02/05/21 16:59 Allergies: Allergies: Allergies Coded Allergies Type Severity Reaction Last Updated Verified iodine Allergy Intermediate Hives 05/25/17 Yes morphine Adverse Reaction Intermediate Nausea and Vomiting 05/25/17 Yes Physical Exam: PE: Constitutional: Well developed, well nourished, no acute distress, non-toxic appearance. [] HENT: Normocephalic, atraumatic, bilateral external ears normal, oropharynx moist, no oral exudates, nose normal. [] Eyes: PERRLA, EOMI, conjunctiva normal, no discharge. [] Neck: Normal range of motion, no tenderness, supple, no stridor. [] Cardiovascular:Heart rate regular rhythm, no murmur [] Lungs & Thorax: Bilateral breath sounds clear to auscultation [] Abdomen: Bowel sounds normal, soft, no tenderness, no masses, no pulsatile masses. [] Skin: Warm, dry, no erythema, no rash. [] Back: No tenderness, no CVA tenderness. [] Extremities: No tenderness, no cyanosis, no clubbing, ROM intact, no edema. [] Neurologic: Alert and oriented X 3, normal motor function, normal sensory function, no focal deficits noted. [] Psychologic: Affect normal, judgement normal, mood normal. [] Normal physical exam Current Patient Data: Labs: Laboratory Tests Test 02/05/21 15:45 02/05/21 15:53 POC Urine HCG, Qualitative Hcg negative (Negative) Glucose (Fingerstick) 384 mg/dL (70-99) H Vital Signs: Vital Signs Date Time Temp Pulse Resp B/P (MAP) Pulse Ox O2 Delivery O2 Flow Rate FiO2 02/05/21 15:32 97.1 114 24 142/67 (92) 99 Room Air 97.1 EKG: EK and read by Dr. Tanner as a sinus rhythm with PVCs but no STEMI. Radiology/Procedures: Radiology/Procedures: [] Impression: [facility] [address] [place], [place] [id number] IMAGING REPORT Signed PATIENT: MATHIEU COLE CACCOUNT: [id number] : 1985 LOCATION: ER AGE: 35 SEX: F EXAM STATUS: REG ER ORD. PHYSICIAN: SRIDEVI LEMONS APRN REASON: SOA PROCEDURE: PORTABLE CHEST 1V Single AP view of the chest. Comparison: 03/28/2020. Indication: Shortness of air Findings: The heart is not enlarged. There is no pneumothorax or effusion. No air space or interstitial disease. Impression: 1. No acute cardiopulmonary process. Electronically signed by: Dami Martin MD (02/05/2021 4:12 PM) [facility] DICTATED and SIGNED BY: DAMI MARTIN MD DATE: 02/05/21 [id number] Course & Med Decision Making: Course & Med Decision Making Pertinent Labs and Imaging studies reviewed. (See chart for details) See HPI. Alert and oriented x4. Ambulatory steady gait. Skin pink warm and dry. Abdomen soft and nontender. Lungs are clear all station all lobes. She i s slightly tachycardic. Blood work shows DKA. She started on insulin drip. She does have 2 liters of normal saline going. She is admitted to hospitalist. [] Sohail Disclaimer: Sohail Disclaimer: This electronic medical record was generated, in whole or in part, using a voice recognition dictation system. Departure Departure Impression: Primary Impression: DKA (diabetic ketoacidosis) Qualified Codes: E13.10 - Other specified diabetes mellitus with ketoacidosis without coma Disposition: ADMITTED INPATIENT Admitting Physician: JOSHUA Condition: STABLE Referrals: NO PCP (PCP) SRIDEVI LEMONS APRN Feb 05, 2021 16:14
[2021-02-05] MEDS ORDERED: METOCLOPRAMIDE HCL 10 MG/2 ML VIAL. IVP ONE (16:15)
[2021-02-05] MEDS ORDERED: FAMOTIDINE 20 MG TABLET. PO ONE (16:15)
[2021-02-05 16:22] LABS: BILIRUBIN,URINE NEGATIVE (NEG); CLARITY,URINE CLEAR; COLOR,URINE YELLOW; NITRITE,URINE NEGATIVE (NEG); PROTEIN,URINE NEGATIVE (NEG-TRACE); UROBILINOGEN,URINE 0.2 mg/dL (0.2 mg/dL)
--- NOTE | 2021-02-05 16:32 | EKG ---
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
[2021-02-05 16:38] LABS: BACTERIA,URINE 0 /HPF (0-FEW); RBC,URINE 0 /HPF (0-2)
[2021-02-05] MEDS ORDERED: IV NORMAL SALINE 1000ML BAG 1,000 ML IV ONE (17:00)
[2021-02-05 17:11] LABS: BASO % 1 % (0-3); EOS % 0 % (0-3); HEMOGLOBIN 17.2 g/dL (12.0-15.5); LYMPH # 1.8 x10^3/uL (1.0-4.8); LYMPH % 19 % (24-48); MEAN CORPUSCULAR HEMOGLOBIN 31 pg (25-35); MEAN CORPUSCULAR HGB CONC 33 g/dL (31-37); MEAN CORPUSCULAR VOLUME 94 fL (79-100); MONO # 0.7 x10^3/uL (0.0-1.1); MONO % 7 % (0-9); NEUT % 73 % (31-73); PLATELET COUNT 318 x10^3/uL (140-400); RED BLOOD COUNT 5.65 x10^6/uL (3.50-5.40); RED CELL DISTRIBUTION WIDTH 12.5 % (11.5-14.5); WHITE BLOOD COUNT 9.5 x10^3/uL (4.0-11.0)
[2021-02-05 17:24] LABS: ALBUMIN 4.5 g/dL (3.4-5.0); ALBUMIN/GLOBULIN RATIO 1.1 (1.0-1.7); CALCIUM 8.6 mg/dL (8.5-10.1); CREATININE 0.9 mg/dL (0.6-1.0); GFR 70.5; MAGNESIUM 2.3 mg/dL (1.8-2.4); POTASSIUM 5.1 mmol/L (3.5-5.1); TOTAL BILIRUBIN 0.7 mg/dL (0.2-1.0); TOTAL PROTEIN 8.5 g/dL (6.4-8.2)
[2021-02-05 17:36] LABS: AMPHETAMINE/METHAMPHETAMINE POS (NEG); BARBITURATES NEG (NEG); BENZODIAZEPINES NEG (NEG); CANNABINOIDS NEG (NEG); COCAINE NEG (NEG); METHADONE NEG (NEG); OPIATES NEG (NEG); PHENCYCLIDINE NEG (NEG)
[2021-02-05 18:13] LABS: BASE EXCESS COOX -20 mmol/L (-3-3); HCO3 COOX 6 mmol/L (21-28); METHEMOGLOBIN 0.1 % (0.0-1.9); OXYHEMOGLOBIN 96.9 %; PO2 COOX 115 mmHg (85-108); SAT O2 COOX 98 % (92-99)
[2021-02-05 18:14] LABS: PCO2 COOX 17 mmHg (35-46)
[2021-02-05] MEDS ORDERED: DEXTROSE 50% 25 GM / 50ML DISP.SYRIN. IV ONE (18:15)
[2021-02-05] MEDS ORDERED: INSULIN,REGULAR 100 UNIT DRIP 100 ML IV ONE (18:15)
[2021-02-05] MEDS ORDERED: ONDANSETRON PF 4 MG/2 ML VIAL. IVP PRN (18:15)
[2021-02-05] MEDS ORDERED: INSULIN REGULAR 100 UNIT/ML 3ML VIAL. IV ONE (18:15)
[2021-02-05] MEDS ORDERED: ACETAMINOPHEN 325 MG TABLET. PO PRN (18:15)
[2021-02-05] MEDS: IV NORMAL SALINE 1000ML BAG 1,000 ML IV SCH (21:21)
[2021-02-05 21:26] LABS: ALBUMIN 3.8 g/dL (3.4-5.0); ALBUMIN/GLOBULIN RATIO 1.2 (1.0-1.7); CALCIUM 7.7 mg/dL (8.5-10.1); CREATININE 0.8 mg/dL (0.6-1.0); GFR 80.7; POTASSIUM 3.5 mmol/L (3.5-5.1); TOTAL BILIRUBIN 0.6 mg/dL (0.2-1.0); TOTAL PROTEIN 7.1 g/dL (6.4-8.2)
[2021-02-05 21:30] LABS: PHOSPHORUS 1.7 mg/dL (2.6-4.7)
--- NOTE | 2021-02-05 21:39 | PDOC1 ---
History and Physical Date of Admission Date of Admission DATE: 02/05/21 TIME: 21:36 Source Source: Chart review, Patient History of Present Illness History of Present Illness Madison is a 35 year old female admti with DKA. Had a headache, now improved, recent abd pain like acid reflux. Patient's blood sugar upon arrival was 385, recent poor compliance, and recent meth use tachypnea in ER. o. Past Medical History Past Medical History tobacco use, diabetes, bipolar, bronchitis, pneumonia, DKA. Denies pain at this time. Psych: Anxiety, Addictions Musculoskeletal: low back pain Endocrine: Diabetes Past Surgical History Past Surgical History: No pertinent history Family History Family History: Depression, Diabetes Family History: Parent Social History ALCOHOL: none Drugs: Crystal meth Current Problem List Problem List Problems Medical Problems: (1) DKA (diabetic ketoacidosis) Status: Acute Current Medications Current Medications Current Medications Sodium Chloride 1,000 ml @ 1,000 mls/hr Q1H IV Last administered on 02/05/21at 19:08; Start 02/05/21 at 16:00; Stop 02/05/21 at 16:59; Status DC Famotidine (Pepcid) 20 mg 1X ONCE PO Last administered on 02/05/21at 17:59; Start 02/05/21 at 16:15; Stop 02/05/21 at 16:16; Status DC Metoclopramide HCl (Reglan Vial) 10 mg 1X ONCE IVP Last administered on 02/05/21at 18:00; Start 02/05/21 at 16:15; Stop 02/05/21 at 16:16; Status DC Sodium Chloride 1,000 ml @ 1,000 mls/hr 1X ONCE IV Last administered on 02/05/21at 17:10; Start 02/05/21 at 17:00; Stop 02/05/21 at 17:59; Status DC Dextrose (Dextrose 50%-Water Syringe) 25 gm 1X ONCE IV ; Start 02/05/21 at 18:15; Stop 02/05/21 at 18:16; Status DC Insulin Human Regular (HumuLIN R VIAL) 8 unit 1X ONCE IV Last administered on 02/05/21at 20:03; Start 02/05/21 at 18:15; Stop 02/05/21 at 18:16; Status DC Insulin Human Regular 100 ml @ 0 mls/hr 1X ONCE IV Last administered on 02/05/21at 20:04; Start 02/05/21 at 18:15; Stop 02/05/21 at 18:16; Status DC Ondansetron HCl (Zofran) 4 mg PRN Q8HRS PRN IVP NAUSEA/VOMITING; Start 02/05/21 at 18:15; Stop 02/06/21 at 18:14 Acetaminophen (Tylenol) 650 mg PRN Q4HRS PRN PO FEVER > 100.3'F; Start 02/05/21 at 18:15; Stop 02/06/21 at 18:14 Sodium Chloride 1,000 ml @ 250 mls/hr Q4H IV Last administered on 02/05/21at 21:21; Start 02/05/21 at 21:30 Active Scripts Active Humalog (Insulin Lispro) 100 Unit/1 Ml Insuln.pen 0 Units SQ TIDWMEALS 30 Days Humalog (Insulin Lispro) 100 Unit/1 Ml Insuln.pen 10 Units SQ TIDWMEALS 30 Days Lantus (Insulin Glargine,Hum.rec.anlog) 100 Unit/1 Ml Vial 20 Unit SQ QHS 30 Days Culturelle (Lactobacillus Rhamnosus Gg) 1 Each Cap.sprink 1 Cap PO BID 30 Days Dok (Docusate Sodium) 100 Mg Capsule 100 Mg PO PRN BID PRN 10 Days Zyvox (Linezolid) 600 Mg Tablet 600 Mg PO BID 7 Days Reported Valium (Diazepam) 5 Mg Tablet 5 Mg PO TID PRN Depakote (Divalproex Sodium) 500 Mg Tablet.dr 500 Mg PO DAILY Allergies Allergies: Coded Allergies: iodine (Verified Allergy, Intermediate, Hives, 05/25/17) morphine (Verified Adverse Reaction, Intermediate, Nausea and Vomiting, 05/25/17) ROS General: No: Chills, Night Sweats, Fatigue, Malaise, Appetite, Other PSYCHOLOGICAL ROS: No: Anxiety, Behavioral Disorder, Concentration difficultie, Decreased libido, Depression, Disorientation, Hallucinations, Hostility, Irritablity, Memory difficulties, Mood Swings, Obsessive thoughts, Physical abuse, Sexual abuse, Sleep disturbances, Suicidal ideation, Other Eyes: No Blurry vision, No Decreased vision, No Double vision, No Dry eyes, No Excessive tearing, No Eye Pain, No Itchy Eyes, No Loss of vision, No Photophobia, No Scotomata, No Uses contacts, No Uses glasses, No Other HEENT: YES: [place]ac[place] Respiratory: No: Cough, Hemoptysis, Orthopnea, Pleuritic Pain, Shortness of breath, SOB with excertion, Sputum Changes, Stridor, Tachypnea, Wheezing, Other Cardiovascular: No Chest Pain, No Palpitations, No Orthopnea, No Paroxysmal Noc. Dyspnea, No Edema, No Lt Headedness, No Other Gastrointestinal: Yes Nausea; No Vomiting, No Abdominal Pain, No Diarrhea, No Constipation, No Melena, No Hematochezia, No Other Physical Exam General: Alert, Oriented X3, Cooperative, mild distress Lungs: Clear to auscultation Heart: S1S2, RRR Abdomen: Normal bowel sounds, Soft Extremities: No cyanosis, No edema Skin: No breakdown Neuro: Normal speech, Normal tone, Cranial nerves 3-12 NL Psych/Mental Status: Mental status NL, Mood NL Vitals Vitals Vital Signs Date Time Temp Pulse Resp B/P (MAP) Pulse Ox O2 Delivery O2 Flow Rate FiO2 02/05/21 17:38 102 124/63 (83) 100 Room Air 02/05/21 15:32 97.1 24 97.1 Labs Labs Laboratory Tests Test 02/05/21 15:35 02/05/21 15:45 02/05/21 15:53 02/05/21 16:55 Urine Collection Type Unknown Urine Color Yellow Urine Clarity Clear Urine pH 5.0 (<5.0-8.0) Urine Specific Ailey 1.025 (1.000-1.030) Urine Protein Negative mg/dL (NEG-TRACE) Urine Glucose (UA) >=1000 mg/dL (NEG) Urine Ketones (Stick) >=80 mg/dL (NEG) Urine Blood Trace (NEG) Urine Nitrite Negative (NEG) Urine Bilirubin Negative (NEG) Urine Urobilinogen Dipstick 0.2 mg/dL (0.2 mg/dL) Urine Leukocyte Esterase Negative (NEG) Urine RBC 0 /HPF (0-2) Urine WBC 1-4 /HPF (0-4) Urine Squamous Epithelial Cells Mod /LPF Urine Bacteria 0 /HPF (0-FEW) Urine Opiates Screen Neg (NEG) Urine Methadone Screen Neg (NEG) Urine Barbiturates Neg (NEG) Urine Phencyclidine Screen Neg (NEG) Urine Amphetamine/Methamphetamine Pos (NEG) Urine Benzodiazepines Screen Neg (NEG) Urine Cocaine Screen Neg (NEG) Urine Cannabinoids Screen Neg (NEG) Urine Ethyl Alcohol Neg (NEG) Bedside Urine HCG, Qualitative Hcg negative (Negative) Glucose (Fingerstick) 384 mg/dL (70-99) White Blood Count 9.5 x10^3/uL (4.0-11.0) Red Blood Count 5.65 x10^6/uL (3.50-5.40) Hemoglobin 17.2 g/dL (12.0-15.5) Hematocrit 53.0 % (36.0-47.0) Mean Corpuscular Volume 94 fL (79-100) Mean Corpuscular Hemoglobin 31 pg (25-35) Mean Corpuscular Hemoglobin Concent 33 g/dL (31-37) Red Cell Distribution Width 12.5 % (11.5-14.5) Platelet Count 318 x10^3/uL (140-400) Neutrophils (%) (Auto) 73 % (31-73) Lymphocytes (%) (Auto) 19 % (24-48) Monocytes (%) (Auto) 7 % (0-9) Eosinophils (%) (Auto) 0 % (0-3) Basophils (%) (Auto) 1 % (0-3) Neutrophils # (Auto) 7.0 x10^3/uL (1.8-7.7) Lymphocytes # (Auto) 1.8 x10^3/uL (1.0-4.8) Monocytes # (Auto) 0.7 x10^3/uL (0.0-1.1) Eosinophils # (Auto) 0.0 x10^3/uL (0.0-0.7) Basophils # (Auto) 0.0 x10^3/uL (0.0-0.2) Sodium Level 127 mmol/L (136-145) Potassium Level 5.1 mmol/L (3.5-5.1) Chloride Level 94 mmol/L (98-107) Carbon Dioxide Level 9 mmol/L (21-32) Anion Gap 24 (6-14) Blood Urea Nitrogen 12 mg/dL (7-20) Creatinine 0.9 mg/dL (0.6-1.0) Estimated GFR (Cockcroft-Gault) 70.5 BUN/Creatinine Ratio 13 (6-20) Glucose Level 388 mg/dL (70-99) Calcium Level 8.6 mg/dL (8.5-10.1) Magnesium Level 2.3 mg/dL (1.8-2.4) Total Bilirubin 0.7 mg/dL (0.2-1.0) Aspartate Amino Transf (AST/SGOT) 11 U/L (15-37) Alanine Aminotransferase (ALT/SGPT) 36 U/L (14-59) Alkaline Phosphatase 106 U/L (46-116) Total Protein 8.5 g/dL (6.4-8.2) Albumin 4.5 g/dL (3.4-5.0) Albumin/Globulin Ratio 1.1 (1.0-1.7) Acetone Level Sm pos (NEG) Test 02/05/21 17:41 02/05/21 19:14 02/05/21 19:54 02/05/21 20:30 O2 Saturation 98 % (92-99) Arterial Blood pH 7.17 (7.35-7.45) Arterial Blood pCO2 at Patient Temp 17 mmHg (35-46) Arterial Blood pO2 at Patient Temp 115 mmHg (85-108) Arterial Blood HCO3 6 mmol/L (21-28) Arterial Blood Base Excess -20 mmol/L (-3-3) Oxyhemoglobin 96.9 % Methemoglobin 0.1 % (0.0-1.9) Carbon Monoxide, Quantitative 0.6 % (0.0-1.9) FiO2 21/ra Glucose (Fingerstick) 331 mg/dL (70-99) 308 mg/dL (70-99) SARS-CoV-2 Antigen (Rapid) Negative (NEGATIVE) Test 02/05/21 21:00 Sodium Level 133 mmol/L (136-145) Potassium Level 3.5 mmol/L (3.5-5.1) Chloride Level 100 mmol/L (98-107) Carbon Dioxide Level 11 mmol/L (21-32) Anion Gap 22 (6-14) Blood Urea Nitrogen 11 mg/dL (7-20) Creatinine 0.8 mg/dL (0.6-1.0) Estimated GFR (Cockcroft-Gault) 80.7 BUN/Creatinine Ratio 14 (6-20) Glucose Level 246 mg/dL (70-99) Calcium Level 7.7 mg/dL (8.5-10.1) Phosphorus Level 1.7 mg/dL (2.6-4.7) Magnesium Level 2.0 mg/dL (1.8-2.4) Total Bilirubin 0.6 mg/dL (0.2-1.0) Aspartate Amino Transf (AST/SGOT) 11 U/L (15-37) Alanine Aminotransferase (ALT/SGPT) 30 U/L (14-59) Alkaline Phosphatase 89 U/L (46-116) Total Protein 7.1 g/dL (6.4-8.2) Albumin 3.8 g/dL (3.4-5.0) Albumin/Globulin Ratio 1.2 (1.0-1.7) Laboratory Tests Test 02/05/21 15:35 02/05/21 15:45 02/05/21 15:53 02/05/21 16:55 Urine Collection Type Unknown Urine Color Yellow Urine Clarity Clear Urine pH 5.0 (<5.0-8.0) Urine Specific Ailey 1.025 (1.000-1.030) Urine Protein Negative mg/dL (NEG-TRACE) Urine Glucose (UA) >=1000 mg/dL (NEG) Urine Ketones (Stick) >=80 mg/dL (NEG) Urine Blood Trace (NEG) Urine Nitrite Negative (NEG) Urine Bilirubin Negative (NEG) Urine Urobilinogen Dipstick 0.2 mg/dL (0.2 mg/dL) Urine Leukocyte Esterase Negative (NEG) Urine RBC 0 /HPF (0-2) Urine WBC 1-4 /HPF (0-4) Urine Squamous Epithelial Cells Mod /LPF Urine Bacteria 0 /HPF (0-FEW) Urine Opiates Screen Neg (NEG) Urine Methadone Screen Neg (NEG) Urine Barbiturates Neg (NEG) Urine Phencyclidine Screen Neg (NEG) Urine Amphetamine/Methamphetamine Pos (NEG) Urine Benzodiazepines Screen Neg (NEG) Urine Cocaine Screen Neg (NEG) Urine Cannabinoids Screen Neg (NEG) Urine Ethyl Alcohol Neg (NEG) Bedside Urine HCG, Qualitative Hcg negative (Negative) Glucose (Fingerstick) 384 mg/dL (70-99) White Blood Count 9.5 x10^3/uL (4.0-11.0) Red Blood Count 5.65 x10^6/uL (3.50-5.40) Hemoglobin 17.2 g/dL (12.0-15.5) Hematocrit 53.0 % (36.0-47.0) Mean Corpuscular Volume 94 fL (79-100) Mean Corpuscular Hemoglobin 31 pg (25-35) Mean Corpuscular Hemoglobin Concent 33 g/dL (31-37) Red Cell Distribution Width 12.5 % (11.5-14.5) Platelet Count 318 x10^3/uL (140-400) Neutrophils (%) (Auto) 73 % (31-73) Lymphocytes (%) (Auto) 19 % (24-48) Monocytes (%) (Auto) 7 % (0-9) Eosinophils (%) (Auto) 0 % (0-3) Basophils (%) (Auto) 1 % (0-3) Neutrophils # (Auto) 7.0 x10^3/uL (1.8-7.7) Lymphocytes # (Auto) 1.8 x10^3/uL (1.0-4.8) Monocytes # (Auto) 0.7 x10^3/uL (0.0-1.1) Eosinophils # (Auto) 0.0 x10^3/uL (0.0-0.7) Basophils # (Auto) 0.0 x10^3/uL (0.0-0.2) Sodium Level 127 mmol/L (136-145) Potassium Level 5.1 mmol/L (3.5-5.1) Chloride Level 94 mmol/L (98-107) Carbon Dioxide Level 9 mmol/L (21-32) Anion Gap 24 (6-14) Blood Urea Nitrogen 12 mg/dL (7-20) Creatinine 0.9 mg/dL (0.6-1.0) Estimated GFR (Cockcroft-Gault) 70.5 BUN/Creatinine Ratio 13 (6-20) Glucose Level 388 mg/dL (70-99) Calcium Level 8.6 mg/dL (8.5-10.1) Magnesium Level 2.3 mg/dL (1.8-2.4) Total Bilirubin 0.7 mg/dL (0.2-1.0) Aspartate Amino Transf (AST/SGOT) 11 U/L (15-37) Alanine Aminotransferase (ALT/SGPT) 36 U/L (14-59) Alkaline Phosphatase 106 U/L (46-116) Total Protein 8.5 g/dL (6.4-8.2) Albumin 4.5 g/dL (3.4-5.0) Albumin/Globulin Ratio 1.1 (1.0-1.7) Acetone Level Sm pos (NEG) Test 02/05/21 17:41 02/05/21 19:14 02/05/21 19:54 02/05/21 20:30 O2 Saturation 98 % (92-99) Arterial Blood pH 7.17 (7.35-7.45) Arterial Blood pCO2 at Patient Temp 17 mmHg (35-46) Arterial Blood pO2 at Patient Temp 115 mmHg (85-108) Arterial Blood HCO3 6 mmol/L (21-28) Arterial Blood Base Excess -20 mmol/L (-3-3) Oxyhemoglobin 96.9 % Methemoglobin 0.1 % (0.0-1.9) Carbon Monoxide, Quantitative 0.6 % (0.0-1.9) FiO2 21/ra Glucose (Fingerstick) 331 mg/dL (70-99) 308 mg/dL (70-99) SARS-CoV-2 Antigen (Rapid) Negative (NEGATIVE) Test 02/05/21 21:00 Sodium Level 133 mmol/L (136-145) Potassium Level 3.5 mmol/L (3.5-5.1) Chloride Level 100 mmol/L (98-107) Carbon Dioxide Level 11 mmol/L (21-32) Anion Gap 22 (6-14) Blood Urea Nitrogen 11 mg/dL (7-20) Creatinine 0.8 mg/dL (0.6-1.0) Estimated GFR (Cockcroft-Gault) 80.7 BUN/Creatinine Ratio 14 (6-20) Glucose Level 246 mg/dL (70-99) Calcium Level 7.7 mg/dL (8.5-10.1) Phosphorus Level 1.7 mg/dL (2.6-4.7) Magnesium Level 2.0 mg/dL (1.8-2.4) Total Bilirubin 0.6 mg/dL (0.2-1.0) Aspartate Amino Transf (AST/SGOT) 11 U/L (15-37) Alanine Aminotransferase (ALT/SGPT) 30 U/L (14-59) Alkaline Phosphatase 89 U/L (46-116) Total Protein 7.1 g/dL (6.4-8.2) Albumin 3.8 g/dL (3.4-5.0) Albumin/Globulin Ratio 1.2 (1.0-1.7) VTE Prophylaxis Ordered VTE Prophylaxis Devices: No VTE Pharmacological Prophylaxi: Yes Assessment/Plan Assessment/Plan DKA meth abuse disorder weakness bipolar tobacco abuse admit to ICU, < 30 minutes Justifications for Admission Other Justification NEVAEH WILSON MD Feb 05, 2021 21:39
[2021-02-05] MEDS ORDERED: POTASSIUM PHOS,M-BASIC-D-BASIC 15 MMOL in IV NORMAL SALINE 100ML 100 ML IV SCH (22:00)
--- NOTE | 2021-02-05 23:02 | NUR ---
admit from ER for DKA. potassium and phosphorus replacement per pharm
[2021-02-05] MEDS: IV DEXTROSE 5 %-0.45 % NACL 1,000 ML IV SCH (23:26)
[2021-02-06] VITALS (13 sets, daily range): BP systolic 75–184; BP diastolic 45–68
[2021-02-06] MEDS: IV NORMAL SALINE 1000ML BAG 1,000 ML IV SCH ×2 (01:13→05:30)
[2021-02-06 01:44] LABS: ALBUMIN/GLOBULIN RATIO 1.2 (1.0-1.7); CALCIUM 7.4 mg/dL (8.5-10.1); CREATININE 0.7 mg/dL (0.6-1.0); GFR 94.2; MAGNESIUM 1.8 mg/dL (1.8-2.4); PHOSPHORUS 1.7 mg/dL (2.6-4.7); TOTAL BILIRUBIN 0.7 mg/dL (0.2-1.0); TOTAL PROTEIN 5.6 g/dL (6.4-8.2)
[2021-02-06] MEDS ORDERED: DEXTROSE 50% 25 GM / 50ML DISP.SYRIN. IV PRN (02:00)
--- NOTE | 2021-02-06 02:09 | NUR ---
gap closed- insulin orders received from Dr Levy
[2021-02-06] MEDS ORDERED: INSULIN GLARGINE SYRINGE. SQ ONE (03:00)
[2021-02-06] MEDS: IV DEXTROSE 5 %-0.45 % NACL 1,000 ML IV SCH ×2 (03:30→09:00)
[2021-02-06 06:40] LABS: HEMATOCRIT 38.5 % (36.0-47.0); HEMOGLOBIN 13.1 g/dL (12.0-15.5); RED BLOOD COUNT 4.27 x10^6/uL (3.50-5.40); RED CELL DISTRIBUTION WIDTH 12.3 % (11.5-14.5); WHITE BLOOD COUNT 6.4 x10^3/uL (4.0-11.0)
[2021-02-06 06:53] LABS: ALBUMIN/GLOBULIN RATIO 1.1 (1.0-1.7); CALCIUM 8.1 mg/dL (8.5-10.1); CREATININE 0.5 mg/dL (0.6-1.0); GFR 138.8; POTASSIUM 3.4 mmol/L (3.5-5.1); TOTAL BILIRUBIN 0.8 mg/dL (0.2-1.0); TOTAL PROTEIN 5.8 g/dL (6.4-8.2)
[2021-02-06] MEDS: INSULIN LISPRO 300 UNITS/3 ML VIAL. SQ SCH ×2 (09:00→11:46)
--- NOTE | 2021-02-06 11:39 | DISCH ---
DISCHARGE INSTRUCTIONS Condition on Discharge Condition on Discharge: Stable Activity After Discharge Activity Instructions for Disc: Activity as tolerated Bathing Instructions: No Tub Bath until see Lifting Instructions after Dis: No heavy lifting, No pulling or pushing Driving Instructions after Dis: Do not drive Diet after Discharge Diet after Discharge: Diabetic No Calorie Level Liquid Texture: Thin Liquid Wound Incision Care Wound/Incision Care: Change dressing Checks after Discharge Checks after discharge: Check blood sugar, ac/hs Contacting the DR. after DC Call your doctor for: If your condition worsens Follow-Up Follow up with: PCP within 2 weeks of discharge Treatment/Equipment after DC Adaptive Equipment Issued: None HANSEL MANDEL MD Feb 06, 2021 11:39
[2021-02-06] MEDS ORDERED: POTASSIUM CHLORIDE 20 MEQ TABLET.ER. PO ONE (12:30)
[2021-02-06] MEDS ORDERED: INSULIN GLARGINE SYRINGE. SQ SCH (21:00)
== END 2021-02-06 15:33 | disposition hospice, home (50) | DRG 639 ==
LOC: ER 14:29 → 1 WEST ICU 18:03
PROVIDERS: ADMIT Internal Medicine; ATTEND Internal Medicine
DX: E11.10 Type 2 diabetes mellitus with ketoacidosis without coma (principal); F15.10 Other stimulant abuse, uncomplicated; Z72.0 Tobacco use; Z79.4 Long term (current) use of insulin; Z81.8 Family history of other mental and behavioral disorders; Z83.3 Family history of diabetes mellitus; F41.9 Anxiety disorder, unspecified; K21.9 Gastro-esophageal reflux disease without esophagitis
CPT/HCPCS: 36415; 36600; 71045; 80053; 80307; 81001; 81025; 82010; 82805; 82962; 83735; 84100; 85025; 85027; 87426; 93005; 96361; 96374; J1815; J2765; J3490; J7030; J7042; U0003; U0005; 99285-25; G0378